=== PATIENT | male | born 1960 | race Caucasian/White ===

== ENCOUNTER → 2018-10-22 | Outpatient (CLI) | payer OTHER ==
--- NOTE | 2018-10-22 23:36 | CONS ---
CONSULTATION REASON FOR CONSULTATION: Consultation note for sleep apnea. 58-year-old male patient diagnosed having obstructive sleep apnea many years back coming in for a routine check. The patient has had a severe VERONICA with an AHI of 35 and currently has a CPAP at a pressure of 9 cm of water. He is using a ResMed F9 series and he is using Young FX nose mask. He goes to be around 10 p.m., wakes up at 6 a.m. in the morning. He wakes up refreshed and alert during the day. He is averaging more than 6 hours of CPAP use per night. No leaks around the mask. He is quite comfortable. No nighttime shortness of breath, chest pain or no heartburn. No grinding of the teeth. His snoring is completely subsided while on CPAP therapy. No new medical problems or comorbidities. He has hypertension and diabetes which has been essentially stable for now. His weight has also been stable. PAST MEDICAL HISTORY: Diabetes mellitus, hypertension, obstructive sleep apnea. Fatty liver. PAST SURGICAL HISTORY: Is negative. DRUG ALLERGIES: Not known. MEDICATIONS ARE: Listed. SOCIAL HISTORY: Nonsmoker. No history of alcohol. No history of IV drugs. FAMILY HISTORY: Positive for cardiac disease. Negative for sleep apnea. REVIEW OF SYSTEMS: Fourteen-point review of system was done. Positive findings are mentioned above in history of present illness. PHYSICAL EXAMINATION: His BP is 117/73, pulse is 70, respirations 16. Weight is 216. Pulse ox 97 percent on room air. GENERAL APPEARANCE: Calm, comfortable. No acute distress. Head is atraumatic, normocephalic. NECK: Supple. Mallampati class IV. There is no goiter or neck mass. LUNGS: Clear to auscultation. HEART: Sounds regular rate and rhythm. Normal S1, S2. No S3, S4. No murmurs. ABDOMEN: Soft, nontender. No organomegaly. EXTREMITIES: No edema. No cyanosis or clubbing. NEUROLOGIC: Alert and oriented x3. No focal neurological deficits. PSYCHIATRIC: Negative for anxiety or depression. IMPRESSION: 1. obstructive sleep apnea AHI of 35 while treated with a CPAP pressure of 9. 2. Hypersomnia, improved. 3. Hypertension. 4. Diabetes. 5. Fatty liver. PLAN: 1. Utilize CPAP at a pressure of 9. 2. Use a Young FX mask and alternative I offered the AirFit medium-size nose mask. 3. Encourage further weight loss. 4. Treatment is successful, we will see him back in a year's time, earlier if needed. No need for any further changes. His machine is functional and there is no need for any further adjustments at this point in time. MMANAL / IJN: [id number] /
== END | disposition home or self-care (01) ==
LOC: SLEEP 13:53
PROVIDERS: ATTEND Internal Medicine Critical Care Medicine
DX: G47.33 Obstructive sleep apnea (adult) (pediatric) (principal); I10 Essential (primary) hypertension; E11.9 Type 2 diabetes mellitus without complications; K76.0 Fatty (change of) liver, not elsewhere classified; Z99.89 Dependence on other enabling machines and devices
CPT/HCPCS: 99211

== ENCOUNTER → 2020-07-23 | Outpatient (CLI) | payer OTHER | END | disposition home or self-care (01) | LOC: RADMRIMAIN 11:01 | PROVIDERS: ATTEND Orthopaedic Surgery | DX: Z53.9 Procedure and treatment not carried out, unspecified reason (principal) ==

== ENCOUNTER → 2020-11-23 | Outpatient (CLI) | payer OTHER ==
[2020-11-23 10:45] LABS: Potassium 4.4 mmol/L (3.5-5.1)
[2020-11-23 11:10] LABS: Basophils % (A) 1 %; Eosinophils # (A) 0.1 k/uL (0-0.7); Eosinophils % (A) 2 %; HCT 49.3 % (39.0-53.0); HGB 17.2 gm/dL (13.0-17.5); Lymphocytes # (A) 1.2 k/uL (1.0-4.8); Lymphocytes % (A) 23 %; MCH 33.1 pg (25.0-35.0); MCV 94.8 fL (80.0-100.0); Mean Platelet Volume 11.2; Monocytes # (A) 0.3 k/uL (0-1.0); Monocytes % (A) 6 %; Neutrophils # (A) 3.3 k/uL (1.3-7.7); Neutrophils % (A) 65 %; Platelet Count 105 k/uL (150-450); RDW 12.9 % (11.5-15.5); WBC 5.1 k/uL (3.8-10.6)
== END | disposition home or self-care (01) ==
LOC: LABPAT 09:00
PROVIDERS: ATTEND Orthopaedic Surgery
DX: Z01.818 Encounter for other preprocedural examination (principal); M75.41 Impingement syndrome of right shoulder; R00.1 Bradycardia, unspecified
CPT/HCPCS: 36415; 80051; 85025; 93005

== ENCOUNTER 2020-11-24 06:17 | Day surgery (SDC) | payer OTHER ==
[2020-11-23 08:53] VITALS: BMI 26.4
--- NOTE | 2020-11-23 14:22 | HP ---
HISTORY AND PHYSICAL DATE OF SURGERY: 11/24/2020 Manuel Cabrera is a 60-year-old patient seen with progressive right shoulder pain. We discussed options for treatment. He elected to proceed right shoulder arthroscopy. Consent was obtained. PAST MEDICAL HISTORY: Qhb-rmpugmy-ufapgvyrc diabetes. PAST SURGICAL HISTORY: Noncontributory. DAILY MEDICATIONS: Actos, loperamide, metformin. ALLERGIES: NONE. SOCIAL HISTORY: He denies tobacco use. PHYSICAL EVALUATION OF THE RIGHT SHOULDER: Flexion is 130 degrees, abduction 120 degrees. External rotation is 30 degrees with significant weakness. There is tenderness along the anterolateral acromion and rotator cuff insertion site. Impingement sign is positive at 90. Cross-body adduction sign is positive. Drop-arm sign is positive. Distal neurovascular exam is intact. IMAGING: Radiographs of the right shoulder revealed a type 2 acromion, evidence for acromioclavicular joint osteoarthritis and cystic changes of the greater tuberosity. Right shoulder MRI revealed impingement, acromioclavicular joint osteoarthritis and labral tear. IMPRESSION: 1. Right shoulder impingement with labral tear and possible rotator cuff tear. 2. Right shoulder acromioclavicular joint osteoarthritis. 3. Hgg-krydmgr-ldyvwcyyl diabetes. PLAN: Right shoulder arthroscopy with subacromial decompression, Kris procedure, possible arthroscopic rotator cuff repair and debridement. MMODL / IJN: [id number] /
[2020-11-24] MEDS ORDERED: MIDAZOLAM 2 MG/2 ML VIAL IV PRN (06:39)
[2020-11-24] MEDS ORDERED: ONDANSETRON 4 MG/2 ML VIAL IVP ONE (06:39)
[2020-11-24] MEDS ORDERED: LACTATED RINGERS 1,000 ML IV SCH (06:39)
[2020-11-24] MEDS ORDERED: DEXAMETHASONE SOD PHOSPHATE 4 MG/ML 1 ML VIAL IV ONE (06:39)
[2020-11-24] MEDS ORDERED: LIDOCAINE 1% (10MG/ML) FOR IV START INTRADERMA ONE (07:00)
[2020-11-24] MEDS ORDERED: HYDROmorphone 0.5 MG/0.5 ML SYRINGE IVP PRN (07:00)
[2020-11-24 07:34] LABS: Glucose,Whole Blood 267 mg/dL (75-99)
[2020-11-24] MEDS ORDERED: MIDAZOLAM 2 MG/2 ML VIAL IV ONE (07:36)
[2020-11-24] MEDS ORDERED: fentaNYL (PF) 50 MCG/ML 2 ML AMP IV ONE (07:36)
[2020-11-24] MEDS ORDERED: ROPIVACAINE 5 MG/ML 30 ML VIAL ONE (07:52)
[2020-11-24] MEDS ORDERED: ePHEDrine SULFATE/0.9% NACL/PF 50 MG/5 ML SYRINGE IV ONE (07:52)
[2020-11-24] MEDS ORDERED: MIDAZOLAM 2 MG/2 ML VIAL ONE (07:52)
[2020-11-24] MEDS ORDERED: fentaNYL (PF) 50 MCG/ML 2 ML AMP ONE (07:52)
[2020-11-24] MEDS ORDERED: SUCCINYLCHOLINE CHLORIDE VIAL 200 MG/10 ML VIAL IV ONE (07:52)
[2020-11-24] MEDS ORDERED: LIDOCAINE 1% INJ 10MG/ML (20 ML MDV) ONE (07:52)
[2020-11-24] MEDS ORDERED: PROPOFOL 10 MG/ML 20 ML VIAL IV ONE (07:52)
[2020-11-24] MEDS ORDERED: LACTATED RINGERS 1,000 ML IV ONE (09:47)
[2020-11-24 10:06] VITALS: TEMP 97.4
[2020-11-24 10:07] LABS: Glucose,Whole Blood 296 mg/dL (75-99)
--- NOTE | 2020-11-24 10:07 | P.OP ---
Date of Procedure: 11/24/20 Preoperative Diagnosis: Right shoulder impingement Postoperative Diagnosis: 1. Right shoulder rotator cuff tear 2. Right shoulder impingement 3. Right shoulder acromioclavicular joint osteoarthritis Procedure(s) Performed: 1. Right shoulder arthroscopic rotator cuff repair 2. Right shoulder arthroscopic subacromial decompression 3. Right shoulder arthroscopic Kris procedure Implants: 14.75 Arthrex swivel lock anchor Anesthesia: GETA, regional (Interscalene block) Surgeon: Uday Trent Sap Basis Consultant #1: Rodo Douglass Estimated Blood Loss (ml): 11 Pathology: none sent Condition: stable Disposition: PACU Indications for Procedure: 60-year-old patient seen with progressive right shoulder pain. After treatment options were discussed, he elected to proceed with arthroscopy Operative Findings: see description of procedure Description of Procedure: Patient underwent an interscalene block by department of anesthesia. The patient was then taken to the operative suite. The patient underwent a general anesthetic by the department of anesthesia. The patient was placed into a lateral position and secured. There was appropriate padding of the bony prominence. Right shoulder was then prepped and draped in normal sterile orthopedic fashion. We placed the extremity in 10 pounds of longitudinal traction. A posterior incision was now made for a posterior working portal site. The trocar and cannula were inserted into the glenohumeral joint. Arthroscopy was initiated. Spinal needle was now inserted anteriorly, to ascertain the anterior working portal site. An incision was now made in that area, a trocar was inserted followed by a probe. There was some superficial fraying of the anterior labrum. Glenohumeral joint appeared unremarkable. The biceps tendon was stable. I debrided out the superficial fraying of the anterior labrum. The labrum was again probed and found to be stable. Instruments now removed from glenohumeral joint. Utilizing the posterior working portal site, the trocar and cannula were inserted into the subacromial space. Arthroscopy initiated. I made an incision 2 fingerbreadths lateral to the acromion. I introduced my trocar followed by my ArthroCare ablator. I now began ablating thick subacromial bursal tissue, which exposed the undersurface of the anterior acromion. There was diminished subacromial space. There was a very prominent anterior acromion. A motorized bur was introduced and a subacromial decompression was performed. I also excised some osteophytes off the inferior aspect of the distal clavicle. The AC joint was visualized and noted to be fairly arthritic. The motorized bur was introduced in the anterior portal site and a Kris procedure was performed without difficulty, decompressing the AC joint nicely. I turned my attention to the rotator cuff. There was an area of full-thickness perforation distal supraspinatus. I debrided the margins getting down to stable tendon tissue. The defect/tear was approximately 1.5 cm and freely mobile over the footprint. I abraded the footprint with a motorized bur. I passed 3 everted mattress sutures through good bites of rotator cuff tendon. I punched a hole in the footprint for insertion of an anchor. All 6 limbs of suture were passed through the eyelet of a 4.75 Arthrex swivel lock anchor. I placed the eyelet into the pre-punched hole. I held it in position while Rodo TRACY tensioned all sutures and deployed the anchor with good fixation noted. All residual suture limbs were now clipped. We had good compression of the tendon along the entire footprint. Instruments now removed from the portal sites. All portal sites were approximated with nylon suture. Sterile dressings were applied followed by a shoulder sling. Rodo TRACY assisted in this case. The patient was awakened, transferred to a bed, and taken to recovery in stable condition.
[2020-11-24] MEDS ORDERED: INSULIN ASPART (NovoLOG) 100 UNIT/ML VIAL SQ ONE (10:23)
[2020-11-24 10:45] VITALS: RESP 16
[2020-11-24] MEDS ORDERED: hydrALAZINE HCL 20 MG/ML 1 ML VIAL IVP ONE (11:20)
--- NOTE | 2020-11-24 12:27 | P.ANPRN ---
Procedure Note - Anesthesia - Nerve Block Performed Right Interscalene Time Out Performed: Yes (07:35) Date of Procedure: 11/24/20 Procedure Start Time: :35 Procedure Stop Time: 07:49 Location of Patient: PreOp Indication: Acute Post-Operative Pain, Requested by Surgeon (Dr Trent) Sedation Type: Sedate with meaningful contact maintained Preparation: Sterile Prep Position: Supine Catheter: None Needle Types: Pajunk Needle Gauge: Other (see comment) (22g) Ultrasound used to visualize needle placement: Yes Ultrasound used to observe medication spread: Yes Injectate: 0.5% Ropivacaine (see comment for volume) (20cc) Blood Aspirated: No Pain Paresthesia on Injection Noted: No Resistance on Injection: Normal Image Stored and Saved: Yes Events: Uneventful and Well Tolerated
[2020-11-24 12:50] VITALS: BP 164/95; PULSE 78
== END 2020-11-24 13:00 | disposition home or self-care (01) ==
LOC: OR 06:17
PROVIDERS: ATTEND Orthopaedic Surgery
DX: M25.811 Other specified joint disorders, right shoulder (principal); M19.011 Primary osteoarthritis, right shoulder; E11.9 Type 2 diabetes mellitus without complications; M75.101 Unspecified rotator cuff tear or rupture of right shoulder, not specified as traumatic; Z79.84 Long term (current) use of oral hypoglycemic drugs
CPT/HCPCS: 29824; 29826; 29827; 64415; 76942; C1713; J2250; J0330; J0360; J1100; J0690; J2405; J2001; J3010; J2795; J2704

== ENCOUNTER 2023-07-30 16:03 | Inpatient (IN) | payer OTHER ==
--- NOTE | 2023-07-30 16:32 | ED ---
Chest Pain HPI - General Source: patient, family, RN notes reviewed Mode of arrival: wheelchair Limitations: no limitations <Rosa Mulligan - Last Filed: 07/30/23 16:28> - General Source: patient, RN notes reviewed, old records reviewed <Jose Armando Loaiza - Last Filed: 07/30/23 22:07> - General Chief Complaint: Chest Pain Stated Complaint: Chest pain Time Seen by Provider: 07/30/23 16:28 - History of Present Illness Initial Comments: Quick note: 63 year old male presenting to the ER with a chief complaint of chest pain. Patient reports for the past 2 days he has been endorsing a centralized chest discomfort. He admits to shortness of breath, nausea and diaphoresis. Patient states he also was having a headache. No known cardiac history. Patient is a known diabetic. (Rosa Mulligan) Patient is a 63-year-old male who presents emergency department complaining of chest pain. Has been ongoing for the last 1 to 2 days. States it originally started as indigestion type symptoms which is typical for the patient. Normally he gets some lower close to his stomach but he was having them in the middle of his chest. States he took antacids with minimal relief. Today while out on the boat a few hours ago he began experiencing more of a pressure type of chest pain over the center of his chest. This is common gone over the last day or so. There is more severe. Also had an episode when he climbs steps. [place] nauseous at that time as well as broke out in a sweat. No radiation of the pain. States currently he just has very minimal indigestion symptoms if any. No rosales chest pain like he had earlier. No significant cardiac history for the patient but does have family members, both mother and grandmother father who required stenting in their 60s and 70s. Patient has a history of diabetes. Never smoker. Presents for further evaluation at this time. No lower extremity edema. No fevers, chills, cough. (Jose Armando Loaiza) - Related Data Home Medications Medication Instructions Recorded Confirmed Diclofenac Sodium [Voltaren] 50 mg PO TID PRN 11/23/20 07/30/23 methocarbamoL [Methocarbamol] 500 mg PO DIRECTED PRN 11/23/20 07/30/23 traMADol HCL [Ultram] 50 mg PO TID PRN 11/23/20 07/30/23 Allerplex 1 dose PO Q4H PRN 07/30/23 07/30/23 Antronex 1 dose PO Q4H PRN 07/30/23 07/30/23 Cetirizine HCl [Zyrtec] 10 mg PO DAILY 07/30/23 07/30/23 Cetirizine HCl [Zyrtec] 10 mg PO HS PRN 07/30/23 07/30/23 Dulaglutide [Trulicity] 0.75 mg SQ TU 07/30/23 07/30/23 Empagliflozin [Jardiance] 25 mg PO DAILY 07/30/23 07/30/23 Fenofibrate Nanocrystallized 145 mg PO DAILY 07/30/23 07/30/23 [Fenofibrate] lisinopriL [Zestril] 10 mg PO DAILY 07/30/23 07/30/23 Allergies Allergy/AdvReac Type Severity Reaction Status Date / Time Sulfa (Sulfonamide Allergy Rash/Hives Verified 07/30/23 17:39 Antibiotics) Review of Systems ROS Other: All systems not noted in ROS Statement are negative. <Rosa Mulligan - Last Filed: 07/30/23 16:28> ROS Other: All systems not noted in ROS Statement are negative. <Jose Armando Loaiza - Last Filed: 07/30/23 22:07> ROS Statement: Those systems with pertinent positive or pertinent negative responses have been documented in the HPI. Review of Systems: CONST: Denies fever EYES: Denies blurry vision ENT: Denies nasal congestion C/V: Denies current chest pain RESP: Denies shortness of breath GI: Denies abdominal pain : Denies dysuria SKIN: Denies rash. MSK: Denies joint pain. NEURO: Denies headache (Jose Armando Loaiza) EKG Findings - EKG Comments: EKG Findings:: 12-lead Electrocardiogram Interpretation Note. EKG was reviewed and interpreted by myself. 12-lead ECG performed at 1616 is interpreted by me as revealing normal sinus rhythm at a rate of 66 beats per minute. [place] is normal. [place] interval is 238 ms, QRS duration is 110 ms, QTc is 432 ms.. New T wave inversions in the inferior leads, II, III, aVF. R wave progression across the precordium was satisfactory. Concerning of some ischemic changes in the inferior leads which appears new when compared with EKG from November 2020. 12- lead Electrocardiogram Interpretation Note. EKG was reviewed and interpreted by myself. 12-lead ECG performed at 1733 is interpreted by me as revealing normal sinus rhythm at a rate of 64 beats per minute. [place] is normal. [place] interval is 231 ms, QRS duration is 109 ms, QTc is 432 ms. Continued T wave inversion in the inferior leads II, III, aVF... R wave progression across the precordium was satisfactory. Patient continues to show T wave inversions in the inferior leads concerning for ischemic changes. No dynamic changes when compared with prior EKGs.. - EKG Results: EKG: interpreted by ERMD <Jose Armando Loaiza - Last Filed: 07/30/23 22:07> Past Medical History Past Medical History: Diabetes Mellitus Additional Past Medical History / Comment(s): CURRENTLY DIET CONTROL DIABETES. STATES STOPPED ALL DIABETIC MEDS ABOUT 2 MONTHS AGO BECUASE NOTHING WAS WORKING. STATES THAT CBG STAYS ABOUT 240. History of Any Multi-Drug Resistant Organisms: None Reported Past Surgical History: Orthopedic Surgery Additional Past Surgical History / Comment(s): LT ELBOW DENERVATION. BACK INJECTIONS. COLONOSOCPY Past Anesthesia/Blood Transfusion Reactions: Postoperative Nausea & Vomiting (PONV) Past Psychological History: No Psychological Hx Reported Smoking Status: Never smoker Past Alcohol Use History: None Reported Past Drug Use History: None Reported - Past Family History Father Family Medical History: Cancer Additional Family Medical History / Comment(s): PROSTATE <Rosa Mulligan - Last Filed: 07/30/23 16:28> General Exam <Rosa Mulligan - Last Filed: 07/30/23 16:28> <Jose Armando Loaiza - Last Filed: 07/30/23 22:07> - General Exam Comments Initial Comments: Visual Physical Exam Vital signs reviewed General: Well-appearing, nontoxic, no acute distress. Head: Normocephalic, atraumatic Eyes: PERRLA, EOMI ENT: Airway patent Chest: Nonlabored breathing Skin: No visual rash, normal skin tone Neuro: Alert and oriented 3 Musculoskeletal: No gross abnormalities (Rosa Mulligan) General: Appears in no acute distress. HEAD: Normal with no signs of head trauma. EYES: PERRLA, EOMI, conjunctiva normal, no discharge. ENT: Hearing grossly intact, normal oropharynx. RESPIRATORY: Clear breath sounds bilaterally. No wheezes, rales, or rhonchi. C/V: Regular rate and rhythm. S1 and S2 auscultated, no edema, peripheral pulses 2+ and intact throughout ABD: Abd is soft, nontender, nondistended EXT: Normal range of motion, no obvious deformity SKIN: No rashes or lesions observed on exposed skin. NEURO: Alert and oriented x 4. (Jose Armando Loaiza) Course Vital Signs 07/30/23 07/30/23 07/30/23 16:10 18:16 18:37 Temperature 98.3 F 98.7 F Pulse Rate 68 64 68 Respiratory 18 18 16 Rate Blood Pressure 155/96 154/97 138/82 O2 Sat by Pulse 99 99 98 Oximetry Chest Pain MDM <Rosa Mulligan - Last Filed: 07/30/23 16:28> <Jose Armando Loaiza - Last Filed: 07/30/23 22:07> - MDM I performed the quick note portion of this chart. Electronically signed by Rosa Mulligan PA-C (Rosa Mulligan) Was pt. sent in by a medical professional or institution (ROSSANA Cavazos, [employer], urgent care, hospital, or detention...) When possible be specific @ -No Did you speak to anyone other than the patient for history (EMS, parent, family, police, friend...)? What history was obtained from this source @ -No Did you review nursing and triage notes (agree or disagree)? Why? @ -I reviewed and agree with nursing and triage notes Were old charts reviewed (outside hosp., previous admission, EMS record, old EKG, old radiological studies, urgent care reports/EKG's, detention records)? Report findings @ -Prior EKG reviewed from November 2020 which did not show the T wave inversion in the inferior leads at that time. Differential Diagnosis (chest pain, altered mental status, abdominal pain women, abdominal pain men, vaginal bleeding, weakness, fever, dyspnea, syncope, headache, dizziness, GI bleed, back pain, seizure, CVA, palpatations, mental health, musculoskeletal)? @ -Differential Chest Pain: Stable Angina, Unstable Angina, STEMI, NSTEMI Aortic Dissection, Pneumothorax, Musculoskeletal, Esophageal Spasm GERD, Cholecystitis, Pancreatitis, Zoster, this is not meant to be an all-inclusive list. EKG interpreted by me (3pts min.). @ -As above X-rays interpreted by me (1pt min.). @ -Chest x-ray reveals no obvious acute cardiopulmonary process. CT interpreted by me (1pt min.). @ -None done U/S interpreted by me (1pt. min.). @ -None done What testing was considered but not performed or refused? (CT, X-rays, U/S, la bs)? Why? @ -None What meds were considered but not given or refused? Why? @ -None Did you discuss the management of the patient with other professionals (professionals i.e. , PA, SH[employer]ER/FIREMAN, lab, RT, psych nurse, social and political studies professor, intellectual property lawyer, teacher, credit administration officer, dependency case manager)? Give summary @ -Discussed with HARSHA Mckeon of [facility] who accepted the admission. Was smoking cessation discussed for >3mins.? @ -No Was critical care preformed (if so, how long)? @ -Yes, 35 minutes. Were there social determinants of health that impacted care today? How? (Homelessness, low income, unemployed, alcoholism, drug addiction, transportation, low edu. Level, literacy, decrease access to med. care, penitentiary, rehab)? @ -No Was there de-escalation of care discussed even if they declined (Discuss DNR or withdrawal of care, Hospice)? DNR status @ -No What co-morbidities impacted this encounter? (DM, HTN, Smoking, COPD, CAD, Cancer, CVA, ARF, Chemo, Hep., AIDS, mental health diagnosis, sleep apnea, morbid obesity)? @ -None Was patient admitted / discharged? Hospital course, mention meds given and route, prescriptions, significant lab abnormalities, going to OR and other pertinent info. @ -Patient presents emergency department complaining of typical sounding chest pain. We will obtain cardiac workup. Patient in agreement this plan. Originally seen as a quick note. I evaluate the patient when he was placed in room. Vital signs currently within acceptable limits and he has minimal indigestion-like symptoms at this time but no chest pain like he had earlier today. Patient will be given a dose of GI Cocktail as well as 324 mg of aspirin and 1 L fluid bolus. Patient was in agreement this plan. EKG shows no signs of acute ischemia. Chest x-ray reveals no obvious acute cardiopulmonary process. Laboratory studies are remarkable for an elevated troponin of 0.218. On reevaluation, patient remains asymptomatic. I updated him that appears he has a non-STEMI. Repeat EKG was obtained and revealed no dynamic changes. I would like to admit the patient to the hospital at this time on heparin. He already received aspirin. He was in agreement this plan. Cardiology consulted. Echo ordered. I spoke with the admitting physician, Linda of [facility] who accepted the admission. Just before the patient was taken up to 3 S., he states that he had some mild increase in chest pain. Went from a 0 to approximately a 2 or little higher. He was given a nitro which did improve the pain and placed on the Nitropaste. He was in agreement this plan. Resting comfortably at this time. Undiagnosed new problem with uncertain prognosis? @ -No Drug Therapy requiring intensive monitoring for toxicity (Heparin, Nitro, Insulin, Cardizem)? @ -Heparin Were any procedures done? @ -No Diagnosis/symptom? @ -NSTEMI Acute, or Chronic, or Acute on Chronic? @ -Acute Uncomplicated (without systemic symptoms) or Complicated (systemic symptoms)? @ -Complicated Side effects of treatment? @ -None Exacerbation, Progression, or Severe Exacerbation] @ -No Poses a threat to life or bodily function? @ -Yes (Jose Armando Loaiza) Critical Care Time Critical Care Time: Yes Total Critical Care Time: 35 <Jose Armando Loaiza - Last Filed: 07/30/23 22:07> Disposition <Rosa Mulligan - Last Filed: 07/30/23 16:28> Time of Disposition: 17:42 <Jose Armando Loaiza - Last Filed: 07/30/23 22:07> Clinical Impression: NSTEMI (non-ST elevated myocardial infarction) Disposition: ADMITTED IP TO THIS HOSP Condition: Serious
[2023-07-30 16:51] LABS: Basophils % (A) 1 %; Eosinophils # (A) 0.1 k/uL (0-0.7); Eosinophils % (A) 2 %; HCT 50.9 % (39.0-53.0); Lymphocytes # (A) 0.9 k/uL (1.0-4.8); Lymphocytes % (A) 16 %; MCH 32.3 pg (25.0-35.0); MCHC 33.4 g/dL (31.0-37.0); MCV 96.7 fL (80.0-100.0); Mean Platelet Volume 10.6; Monocytes # (A) 0.3 k/uL (0-1.0); Monocytes % (A) 6 %; Neutrophils % (A) 75 %; Platelet Count 117 k/uL (150-450); RBC 5.26 m/uL (4.30-5.90); RDW 12.5 % (11.5-15.5); WBC 5.4 k/uL (3.8-10.6)
[2023-07-30] MEDS: ASPIRIN 81 MG PO STA ×2 (16:52→23:43)
[2023-07-30] MEDS: SODIUM CHLORIDE 0.9% 1,000 ML IV ONE (16:56)
[2023-07-30] MEDS: MAG HYDROX/AL HYDROX/SIMETH 30 ML, HYOSCYAMINE ELIXIR 10 ML, LIDOCAINE VISCOUS 2% 10 ML PO STA (16:57)
[2023-07-30 16:59] LABS: Partial Thromboplastin Time 23.6 sec (22.0-30.0); Prothrombin Time 11.1 sec (10.0-12.5)
[2023-07-30 17:01] LABS: ALT 59 U/L (4-49); AST 58 U/L (17-59); African American GFR (CKD) >90 (>60 ml/min/1.73 sqM); Albumin 4.9 g/dL (3.5-5.0); Alkaline Phosphatase 52 U/L (38-126); Anion Gap 8 mmol/L; Blood Urea Nitrogen 23 mg/dL (9-20); Calcium 9.7 mg/dL (8.4-10.2); Carbon Dioxide 24 mmol/L (22-30); Chloride 103 mmol/L (98-107); Glucose 190 mg/dL (74-99); Non-African American GFR(CKD) 80 (>60 ml/min/1.73 sqM); Potassium 4.5 mmol/L (3.5-5.1); Sodium 135 mmol/L (137-145); Total Bilirubin 0.8 mg/dL (0.2-1.3); Total Protein 7.2 g/dL (6.3-8.2)
--- NOTE | 2023-07-30 17:09 | XR ---
EXAMINATION TYPE: XR chest 2V DATE OF EXAM: 07/30/2023 COMPARISON: NONE HISTORY: Chest pain TECHNIQUE: Frontal and lateral views of the chest are obtained. FINDINGS: There is no focal air space opacity, pleural effusion, or pneumothorax seen. The cardiac silhouette size is within normal limits. The osseous structures are intact. IMPRESSION: No acute cardiopulmonary process.
[2023-07-30] MEDS ORDERED: HEPARIN SODIUM 1,000 UN/ML (10ML VL) IV PRN (17:42)
[2023-07-30] MEDS ORDERED: ONDANSETRON 4 MG/2 ML VIAL IVP PRN (17:43)
[2023-07-30] MEDS ORDERED: NALOXONE 0.4 MG/ML 1 ML VIAL IV PRN (17:43)
[2023-07-30] MEDS: PANTOPRAZOLE 40 MG/10 ML VIAL IVP STA (18:07)
[2023-07-30] MEDS: HEPARIN SODIUM 1,000 UN/ML (10ML VL) IV ONE (18:09)
[2023-07-30] MEDS: HEPARIN SOD,PORK IN 0.45% NACL 25,000 UNIT in 0.45% NACL 1 250ML.BAG IV SCH (18:11)
[2023-07-30] MEDS: SODIUM CHLORIDE 0.9% 1,000 ML IV SCH (18:15)
[2023-07-30] MEDS: NITROGLYCERIN SL TABS 0.4 MG TAB SUBLINGUAL STA (18:15)
[2023-07-30] MEDS: ACETAMINOPHEN TAB 325 MG TAB PO PRN (18:16)
[2023-07-30] MEDS: NITROGLYCERIN OINT 1 INCH/GM PACKET TOPICAL STA (18:36)
[2023-07-30 19:55] LABS: Glucose,Whole Blood 140 mg/dL (70-110)
[2023-07-30] MEDS: NITROGLYCERIN OINT 1 INCH/GM PACKET TOPICAL SCH (23:46)
[2023-07-31] MEDS ORDERED: traMADol 50 MG TAB PO PRN (04:36)
[2023-07-31 05:44] LABS: Glucose,Whole Blood 214 mg/dL (70-110)
[2023-07-31 07:06] LABS: Basophils % (A) 1 %; Eosinophils # (A) 0.1 k/uL (0-0.7); Eosinophils % (A) 3 %; HCT 47.1 % (39.0-53.0); Lymphocytes % (A) 24 %; MCHC 33.9 g/dL (31.0-37.0); MCV 97.2 fL (80.0-100.0); Mean Platelet Volume 11.1; Monocytes # (A) 0.4 k/uL (0-1.0); Monocytes % (A) 8 %; Neutrophils # (A) 2.7 k/uL (1.3-7.7); Neutrophils % (A) 62 %; Platelet Count 118 k/uL (150-450); RBC 4.84 m/uL (4.30-5.90); RDW 12.6 % (11.5-15.5); WBC 4.4 k/uL (3.8-10.6)
[2023-07-31 07:18] LABS: INR 1.1 (<1.2); Partial Thromboplastin Time 54.9 sec (22.0-30.0); Prothrombin Time 11.7 sec (10.0-12.5)
[2023-07-31] MEDS: lisinopriL 10 MG TAB PO SCH (07:48)
[2023-07-31] MEDS: PANTOPRAZOLE 40 MG/10 ML VIAL IV SCH (07:49)
[2023-07-31 08:49] LABS: African American GFR (CKD) >90 (>60 ml/min/1.73 sqM); Anion Gap 10 mmol/L; Blood Urea Nitrogen 24 mg/dL (9-20); Calcium 9.3 mg/dL (8.4-10.2); Carbon Dioxide 15 mmol/L (22-30); Chloride 114 mmol/L (98-107); Glucose 199 mg/dL (74-99); Non-African American GFR(CKD) 85 (>60 ml/min/1.73 sqM); Potassium 4.7 mmol/L (3.5-5.1); Sodium 139 mmol/L (137-145)
[2023-07-31] MEDS ORDERED: ALPRAZolam 0.25 MG TAB PO PRN (08:51)
[2023-07-31] MEDS ORDERED: ALPRAZolam 0.5 MG TAB PO PRN (08:51)
[2023-07-31] MEDS ORDERED: NITROGLYCERIN SL TABS 0.4 MG TAB SUBLINGUAL PRN ×2 (08:51→15:43)
[2023-07-31] MEDS: ASPIRIN 81 MG PO SCH (09:28)
[2023-07-31] MEDS: ASPIRIN 325 MG TAB PO STA (09:29)
[2023-07-31] MEDS: ATORVASTATIN 80 MG TAB PO STA (09:29)
[2023-07-31] MEDS: SODIUM CHLORIDE 0.9% 1,000 ML in EMPTY BAG 1 BAG IV SCH ×2 (10:03→16:11)
--- NOTE | 2023-07-31 11:32 | P.CRDCN ---
History of Present Illness History of present illness: HISTORY OF PRESENT ILLNESS: This is a 63-year-old male with a past medical history significant for hypertension, hyperlipidemia, and diabetes. Patient does not follow with a information receptionist. We have been asked to see the patient in consultation for non- STEMI. Patient examined at the bedside. Patient states he has been having chest discomfort for the past 3 days. He states that initially felt like indigestion but then became more of a pain type sensation. He also reports having a hea dache. He states yesterday he was sitting on a boat when he developed another episode of chest pain. He states yesterday he walked up a flight of stairs and needed to rest which is unusual for him as he usually swims 16 laps without problems. He is a non-smoker. He denies a known history of CAD. Patient was found to have elevated troponins and was started on IV heparin. At the time of examination this morning, patient denies chest pain or pressure. Vital signs are stable. DIAGNOSTICS: - EKG reveals sinus mechanism with T wave inversions inferiorly. - Chest xray negative for acute process. - Laboratory data: Troponin 0.218. 0.485. 0.833. - Current home cardiac medications include lisinopril 10 mg daily and fenofibrate 145 mg daily. REVIEW OF SYSTEMS: At the time of my exam: CONSTITUTIONAL: Denies fever or chills. HEENT: Denies blurred vision, vision changes, or eye pain. Denies hemoptysis CARDIOVASCULAR: Denies chest pain. Denies orthopnea. Denies PND. Denies palpitations RESPIRATORY: Denies shortness of breath. GASTROINTESTINAL: Denies abdominal pain. Denies nausea or vomiting. HEMATOLOGIC: Denies bleeding disorders. GENITOURINARY: Denies any blood in urine. SKIN: Denies pruitis. Denies rash. PHYSICAL EXAM: VITAL SIGNS: Reviewed. GENERAL: Well-developed in no acute distress. HEENT: Head is normocephalic. Pupils are equal, round. Sclerae anicteric. Mucous membranes of the mouth are moist. Neck supple. No JVD or thyromegaly LUNGS: Respirations even and unlabored. Lungs essentially clear to auscultation bilaterally. HEART: Regular rate and rhythm. S1 and S2 heard. ABDOMEN: Soft. Nondistended. Nontender. EXTREMITIES: Normal range of motion. No clubbing or cyanosis. Peripheral pulses intact. No lower extremity edema NEUROLOGIC: Awake and alert. Oriented x 3. ASSESSMENT: Non-STEMI Hypertension Hyperlipidemia Diabetes PLAN: Obtain 2D echo to assess cardiac structure and function Resume home cardiac medications Continue IV heparin Add aspirin 81 mg daily Add atorvastatin 80 mg at night. Check lipid panel Check hemoglobin A1c Patient to undergo cardiac catheterization today with Dr. Benoit Further recommendations pending patient course Nurse practitioner note has been reviewed by physician. Signing provider agrees with the documented findings, assessment, and plan of care documented by PUPIL PERSONNEL SERVICES DIRECTOR as a scribe. Past Medical History Past Medical History: Diabetes Mellitus, Sleep Apnea/CPAP/BIPAP Additional Past Medical History / Comment(s): CURRENTLY DIET CONTROL DIABETES. STATES STOPPED ALL DIABETIC MEDS ABOUT 2 MONTHS AGO BECUASE NOTHING WAS WORKING. STATES THAT [facility] STAYS ABOUT 240. fatty liver History of Any Multi-Drug Resistant Organisms: None Reported Past Surgical History: Orthopedic Surgery Additional Past Surgical History / Comment(s): LT ELBOW DENERVATION. BACK INJECTIONS. COLONOSOCPY, right and left shoulder rotator cuff repairs Past Anesthesia/Blood Transfusion Reactions: Postoperative Nausea & Vomiting (PONV) Past Psychological History: No Psychological Hx Reported Smoking Status: Never smoker Past Alcohol Use History: None Reported Past Drug Use History: None Reported - Past Family History Father Family Medical History: Cancer Additional Family Medical History / Comment(s): PROSTATE Medications and Allergies Home Medications Medication Instructions Recorded Confirmed Type Diclofenac Sodium [Voltaren] 50 mg PO TID PRN 11/23/20 07/30/23 History methocarbamoL [Methocarbamol] 500 mg PO DIRECTED PRN 11/23/20 07/30/23 History traMADol HCL [Ultram] 50 mg PO TID PRN 11/23/20 07/30/23 History Allerplex 1 dose PO Q4H PRN 07/30/23 07/30/23 History Antronex 1 dose PO Q4H PRN 07/30/23 07/30/23 History Cetirizine HCl [Zyrtec] 10 mg PO DAILY 07/30/23 07/30/23 History Cetirizine HCl [Zyrtec] 10 mg PO HS PRN 07/30/23 07/30/23 History Dulaglutide [Trulicity] 0.75 mg SQ TU 07/30/23 07/30/23 History Empagliflozin [Jardiance] 25 mg PO DAILY 07/30/23 07/30/23 History Fenofibrate Nanocrystallized 145 mg PO DAILY 07/30/23 07/30/23 History [Fenofibrate] lisinopriL [Zestril] 10 mg PO DAILY 07/30/23 07/30/23 History Allergies Allergy/AdvReac Type Severity Reaction Status Date / Time Sulfa (Sulfonamide Allergy Rash/Hives Verified 07/30/23 17:39 Antibiotics) Physical Exam Vitals: Vital Signs Temp Pulse Pulse Resp BP BP Pulse Ox 07/31/23 04:00 60 18 113/72 97 07/31/23 02:00 65 18 07/30/23 23:47 65 18 117/75 97 07/30/23 20:39 97.9 F 69 18 140/80 99 07/30/23 20:00 97.9 F 69 18 140/80 99 07/30/23 18:37 98.7 F 68 16 138/82 98 07/30/23 18:16 64 18 154/97 99 07/30/23 16:10 98.3 F 68 18 155/96 99 Intake and Output 07/30/23 07/31/23 07/31/23 22:59 06:59 14:59 Intake Total 68.02 Balance 68.02 Intake: Intake, IV Titration 68.02 Amount Heparin Sod,Pork in 0.45% 68.02 NaCl 25,000 unit In 0.45 % NaCl 1 250ml.bag @ 11. 73 UNITS/KG/HR 10.003 mls /hr IV .Q24H [facility] Rx#: [id number] Other: Voiding Method Toilet Toilet Weight 85.275 kg Results 07/31/23 06:12 07/31/23 06:12 Cardiac Enzymes 07/30/23 07/30/23 07/30/23 Range/Units 16:21 16:21 20:25 AST 58 (17-59) U/L Troponin I 0.218 H* 0.485 H* (0.000-0.034) ng/mL 07/30/23 Range/Units 23:43 AST (17-59) U/L Troponin I 0.833 H* (0.000-0.034) ng/mL Coagulation 07/30/23 07/30/23 07/31/23 Range/Units 16:21 23:43 06:12 PT 11.1 11.7 (10.0-12.5) sec APTT 23.6 32.9 H 54.9 H (22.0-30.0) sec CBC 07/30/23 07/31/23 Range/Units 16:21 06:12 WBC 5.4 4.4 (3.8-10.6) k/uL RBC 5.26 4.84 (4.30-5.90) m/uL Hgb 17.0 16.0 (13.0-17.5) gm/dL Hct 50.9 47.1 (39.0-53.0) % Plt Count 117 L 118 L (150-450) k/uL Comprehensive Metabolic Panel 07/30/23 Range/Units 16:21 Sodium 135 L (137-145) mmol/L Potassium 4.5 (3.5-5.1) mmol/L Chloride 103 (98-107) mmol/L Carbon Dioxide 24 (22-30) mmol/L BUN 23 H (9-20) mg/dL Creatinine 1.00 (0.66-1.25) mg/dL Glucose 190 H (74-99) mg/dL Calcium 9.7 (8.4-10.2) mg/dL AST 58 (17-59) U/L ALT 59 H (4-49) U/L Alkaline Phosphatase 52 (38-126) U/L Total Protein 7.2 (6.3-8.2) g/dL Albumin 4.9 (3.5-5.0) g/dL Current Medications Generic Name Dose Route Start Last Admin Trade Name Matthew PRN Reason Stop Dose Admin Acetaminophen 650 mg 07/30/23 17:43 07/30/23 18:16 Acetaminophen Tab 325 Mg Tab PO 650 mg Q6HR PRN Administration Mild Pain or Fever > 100.5 Heparin Sodium (Porcine) 0 unit 07/30/23 17:42 Heparin Sodium 1,000 Un/Ml (10ml Vl) IV PER PROTOCOL PRN Low PTT Protocol Heparin Sodium/Sodium Chloride 250 mls @ 10.003 mls/hr 07/30/23 18:00 07/31/23 00:59 25,000 unit/ Sodium Chloride IV 14.73 units/kg/hr .Q24H ADOL[facility] 12.561 mls/hr Titration Protocol 11.73 UNITS/KG/HR Sodium Chloride 1,000 mls @ 75 mls/hr 07/30/23 17:45 07/30/23 18:15 Saline 0.9% IV 75 mls/hr .[id number] ADOLFO Administration Lisinopril 10 mg 07/31/23 09:00 Lisinopril 10 Mg Tab PO DAILY ADOL[facility] Naloxone HCl 0.2 mg 07/30/23 17:43 Naloxone 0.4 Mg/Ml 1 Ml Vial IV Q2M PRN Opioid Reversal Nitroglycerin 0.5 inch 07/31/23 00:00 07/30/23 23:46 Nitroglycerin Oint 1 Inch/Gm Packet TOPICAL 0.5 inch Q8HR ADOLFO Administration Ondansetron HCl 4 mg 07/30/23 17:43 Ondansetron 4 Mg/2 Ml Vial IVP Q8HR PRN Nausea And Vomiting Pantoprazole Sodium 40 mg 07/31/23 09:00 Pantoprazole 40 Mg/10 Ml Vial IV DAILY [facility] Tramadol HCl 50 mg 07/31/23 04:36 Tramadol 50 Mg Tab PO TID PRN Pain Intake and Output 07/30/23 07/31/23 07/31/23 22:59 06:59 14:59 Intake Total 68.02 Balance 68.02 Intake: Intake, IV Titration 68.02 Amount Heparin Sod,Pork in 0.45% 68.02 NaCl 25,000 unit In 0.45 % NaCl 1 250ml.bag @ 11. 73 UNITS/KG/HR 10.003 mls /hr IV .Q24H [facility] Rx#: [id number] Other: Voiding Method Toilet Toilet Weight 85.275 kg 07/31/23 06:12 07/30/23 16:21
[2023-07-31 11:39] LABS: Glucose,Whole Blood 156 mg/dL (70-110)
--- NOTE | 2023-07-31 12:58 | CA ---
Transthoracic Echo Report Name: Manuel Cabrera Age: 63 Gender: M : 1960 Exam Date: 07/31/2023 09:11 Exam Location: [place] [facility] Ht (in): 73 Wt (lb): 188 Ordering Physician: Jose Armando Loaiza MD Attending/Referring Phys: [employer] Grade Teacher Lian Gross RDCS Procedure CPT: Indications: nstemi Cardiac Hx: Technical Quality: Good Contrast 1: Total Dose (mL): Contrast 2: Total Dose (mL): MEASUREMENTS (Male / Female) Normal Values 2D ECHO LV Diastolic Diameter PLAX 4.6 cm 4.2 - 5.9 / 3.9 - 5.3 cm LV Systolic Diameter PLAX 3.1 cm IVS Diastolic Thickness 1.3 cm 0.6 - 1.0 / 0.6 - 0.9 cm LVPW Diastolic Thickness 1.2 cm 0.6 - 1.0 / 0.6 - 0.9 cm LV Relative Wall Thickness 0.5 RV Internal Dim ED PLAX 1.9 cm LA Systolic Diameter LX 3.9 cm 3.0 - 4.0 / 2.7 - 3.8 cm LV Diastolic Volume MOD BP 87.8 cm??? 67 - 155 / 56 - 104 cm??? LV Systolic Volume MOD BP 31.0 cm??? 22 - 58 / 19 - 49 cm??? LV Ejection Fraction MOD BP 64.7 % >= 55 % LV Cardiac Index MOD BP 1785.9 cm???/min???m??? LV Diastolic Volume MOD 4C 89.2 cm??? LV Systolic Volume MOD 4C 33.6 cm??? LV Ejection Fraction MOD 4C 62.3 % LV Cardiac Index MOD 4C 1744.5 cm???/min???m??? LV Diastolic Length 4C 7.8 cm LV Systolic Length 4C 6.1 cm LV Diastolic Volume MOD 2C 86.5 cm??? LV Systolic Volume MOD 2C 27.2 cm??? LV Ejection Fraction MOD 2C 68.5 % LV Cardiac Index MOD 2C 1861.1 cm???/min???m??? LV Diastolic Length 2C 7.8 cm LV Systolic Length 2C 6.5 cm LA Volume 40.0 cm??? 18 - 58 / 22 - 52 cm??? LA Volume Index 19.0 cm???/m??? 16 - 28 cm???/m??? M-MODE Aortic Root Diameter MM 3.0 cm LA Systolic Diameter MM 3.3 cm LA Ao Ratio MM 1.1 AV Cusp Separation MM 2.1 cm DOPPLER AV Peak Velocity 114.4 cm/s AV Peak Gradient 5.2 mmHg MV Area PHT 2.6 cm??? Mitral E Point Velocity 52.9 cm/s Mitral A Point Velocity 70.2 cm/s Mitral E to A Ratio 0.8 MV Deceleration Time 286.6 ms TR Peak Velocity 178.0 cm/s TR Peak Gradient 12.7 mmHg Right Ventricular Systolic Press 17.7 mmHg FINDINGS Left Ventricle Left ventricular ejection fraction is estimated at 60-65%. Mildly increased septal wall thickness. Left ventricular cavity size normal. No obvious regional wall motion abnormalities. Right Ventricle Normal right ventricular size and function. Right ventricular systolic pressure within normal limits. Right Atrium Normal right atrial size. Left Atrium Normal left atrial size. Mitral Valve Structurally normal mitral valve. Trace to mild mitral regurgitation. Aortic Valve Trileaflet aortic valve. No aortic valve stenosis or regurgitation. Tricuspid Valve Structurally normal tricuspid valve. Trace to mild tricuspid regurgitation. Pulmonic Valve Structurally normal pulmonic valve. No pulmonic stenosis. Trace pulmonic regurgitation. Pericardium No pericardial or pleural effusion. Aorta Normal size aortic root and proximal ascending aorta. CONCLUSIONS LVH with preserved systolic function Previewed by: Dr. Carl Russell MD (Electronically Signed) Final Date: 31 July 2023 12:57
--- NOTE | 2023-07-31 13:30 | P.HPIM ---
History of Present Illness H&P Date: 07/31/23 Chief Complaint: Chest pain Patient is a 63-year-old male with a past medical history of diabetes type 2, obstructive sleep apnea on CPAP at home and prior history of right and left shoulder cuff repair presents to ER with complaints of chest pain. Patient has been having on and off chest pain mainly in the mid retrosternal region for the past 1 to 2 days. Patient initially felt like indigestion but was a little higher up in the chest. Patient did take antacids with minimal relief. Patient went out on the boat a few hours 8) and started having more chest pain and p ressure-like sensation and felt like someone sitting on the chest. At some point of the time patient also had numbness on the back of the right upper extremity. Patient also had an episode of chest pain again when he climbs steps. [place] nauseous and became diaphoretic. No radiation of the pain. Patient presented to ER for further evaluation. Denies any recent illnesses. No cough or sputum production. No fever no chills. Any recent travel. Denies any leg swelling. Chest x-ray showed no acute cardiopulmonary process. EKG showed sinus rhythm with first-degree AV block Laboratory data showed WBC 5.4 hemoglobin 17.0 and platelets 117 Sodium 135 potassium 4.5 chloride 103 bicarb is 24 BUN 23 and creatinine 1.0 and blood sugar 190 Troponin 0.218, 0.485 and 0.833 Review of Systems Constitutional: Patient denies any fever or chills . No generalized weakness or weight loss. Abdomen: Patient denied nausea vomiting and diarrhea and abdominal pain. Cardiovascular: Patient denies any chest pain or short of breath no palpitations. Respiratory: patient denied any cough or sputum production. No shortness of breath Neurologic: Patient denied any numbness or tingling. no headache. Musculoskeletal: Patient denies any complaints of joint swelling or deformity. Skin: Negative Psychiatric: Negative Endocrine: No heat or cold intolerance. No recent weight gain. Genitourinary: No dysuria or hematuria. All other 14 point ROS negative except the above Past Medical History Past Medical History: Diabetes Mellitus, Sleep Apnea/CPAP/BIPAP Additional Past Medical History / Comment(s): CURRENTLY DIET CONTROL DIABETES. STATES STOPPED ALL DIABETIC MEDS ABOUT 2 MONTHS AGO BECUASE NOTHING WAS WORKING. STATES THAT [facility] [place] ABOUT 240. fatty liver History of Any Multi-Drug Resistant Organisms: None Reported Past Surgical History: Orthopedic Surgery Additional Past Surgical History / Comment(s): LT ELBOW DENERVATION. BACK I NJECTIONS. COLONOSOCPY, right and left shoulder rotator cuff repairs Past Anesthesia/Blood Transfusion Reactions: Postoperative Nausea & Vomiting (PONV) Past Psychological History: No Psychological Hx Reported Smoking Status: Never smoker Past Alcohol Use History: None Reported Past Drug Use History: None Reported - Past Family History Father Family Medical History: Cancer Additional Family Medical History / Comment(s): PROSTATE Medications and Allergies Home Medications Medication Instructions Recorded Confirmed Type Diclofenac Sodium [Voltaren] 50 mg PO TID PRN 11/23/20 07/30/23 History methocarbamoL [Methocarbamol] 500 mg PO DIRECTED PRN 11/23/20 07/30/23 History traMADol HCL [Ultram] 50 mg PO TID PRN 11/23/20 07/30/23 History Allerplex 1 dose PO Q4H PRN 07/30/23 07/30/23 History Antronex 1 dose PO Q4H PRN 07/30/23 07/30/23 History Cetirizine HCl [Zyrtec] 10 mg PO DAILY 07/30/23 07/30/23 History Cetirizine HCl [Zyrtec] 10 mg PO HS PRN 07/30/23 07/30/23 History Dulaglutide [Trulicity] 0.75 mg SQ TU 07/30/23 07/30/23 History Empagliflozin [Jardiance] 25 mg PO DAILY 07/30/23 07/30/23 History Fenofibrate Nanocrystallized 145 mg PO DAILY 07/30/23 07/30/23 History [Fenofibrate] lisinopriL [Zestril] 10 mg PO DAILY 07/30/23 07/30/23 History Allergies Allergy/AdvReac Type Severity Reaction Status Date / Time Sulfa (Sulfonamide Allergy Rash/Hives Verified 07/30/23 17:39 Antibiotics) Physical Exam Vitals: Vital Signs Temp Pulse Pulse Resp BP BP Pulse Ox 07/31/23 07:46 97.8 F 64 16 153/91 98 07/31/23 04:00 60 18 113/72 97 07/31/23 02:00 65 18 07/30/23 23:47 65 18 117/75 97 07/30/23 20:39 97.9 F 69 18 140/80 99 07/30/23 20:00 97.9 F 69 18 140/80 99 07/30/23 18:37 98.7 F 68 16 138/82 98 07/30/23 18:16 64 18 154/97 99 07/30/23 16:10 98.3 F 68 18 155/96 99 Intake and Output 07/30/23 07/31/23 07/31/23 22:59 06:59 14:59 Intake Total 68.02 82.693 Balance 68.02 82.693 Intake: Intake, IV Titration 68.02 82.693 Amount Heparin Sod,Pork in 0.45% 68.02 82.693 NaCl 25,000 unit In 0.45 % NaCl 1 250ml.bag @ 11. 73 UNITS/KG/HR 10.003 mls /hr IV .Q24H [facility] Rx#: [id number] Other: Voiding Method Toilet Toilet Weight 85.275 kg PHYSICAL EXAMINATION: Patient is lying in the bed comfortably, no acute distress, awake alert and oriented.. HEENT: Normocephalic. Neck is supple. Pupils reactive. Nostrils clear. Oral cavity is moist. Neck reveals no JVD, carotid bruits, or thyromegaly. CHEST EXAMINATION: Trachea is central. Symmetrical expansion. Lung caba clear to auscultation and percussion. CARDIAC: Normal S1, S2 with no gallops. No murmurs ABDOMEN: Soft. Bowel sounds normal. No organomegaly. No abdominal bruits. Extremities: reveal no edema. No clubbing or cyanosis Neurologically awake, alert, oriented x3 with well-coordinated movements. No focal deficits noted Skin: No rash or skin lesions. Psychiatric: Coperative. Nonsuicidal Musculoskeletal: No joint swelling or deformity. Normal range of motion. Results CBC & Chem 7: 07/31/23 06:12 07/31/23 06:12 Labs: Abnormal Lab Results - Last 24 Hours (Table) 07/30/23 07/30/23 07/30/23 Range/Units 16:21 16:21 16:21 Plt Count 117 L (150-450) k/uL Lymphocytes # 0.9 L (1.0-4.8) k/uL APTT (22.0-30.0) sec Sodium 135 L (137-145) mmol/L Chloride (98-107) mmol/L Carbon Dioxide (22-30) mmol/L BUN 23 H (9-20) mg/dL Glucose 190 H (74-99) mg/dL POC Glucose (mg/dL) (70-110) mg/dL ALT 59 H (4-49) U/L Troponin I 0.218 H* (0.000-0.034) ng/mL 07/30/23 07/30/23 07/30/23 Range/Units 19:53 20:25 23:43 Plt Count (150-450) k/uL Lymphocytes # (1.0-4.8) k/uL APTT 32.9 H (22.0-30.0) sec Sodium (137-145) mmol/L Chloride (98-107) mmol/L Carbon Dioxide (22-30) mmol/L BUN (9-20) mg/dL Glucose (74-99) mg/dL POC Glucose (mg/dL) 140 H (70-110) mg/dL ALT (4-49) U/L Troponin I 0.485 H* (0.000-0.034) ng/mL 07/30/23 07/31/23 07/31/23 Range/Units 23:43 05:42 06:12 Plt Count 118 L (150-450) k/uL Lymphocytes # (1.0-4.8) k/uL APTT (22.0-30.0) sec Sodium (137-145) mmol/L Chloride (98-107) mmol/L Carbon Dioxide (22-30) mmol/L BUN (9-20) mg/dL Glucose (74-99) mg/dL POC Glucose (mg/dL) 214 H (70-110) mg/dL ALT (4-49) U/L Troponin I 0.833 H* (0.000-0.034) ng/mL 07/31/23 07/31/23 Range/Units 06:12 06:12 Plt Count (150-450) k/uL Lymphocytes # (1.0-4.8) k/uL APTT 54.9 H (22.0-30.0) sec Sodium (137-145) mmol/L Chloride 114 H (98-107) mmol/L Carbon Dioxide 15 L (22-30) mmol/L BUN 24 H (9-20) mg/dL Glucose 199 H (74-99) mg/dL POC Glucose (mg/dL) (70-110) mg/dL ALT (4-49) U/L Troponin I (0.000-0.034) ng/mL Thrombosis Risk Factor Assmnt - DVT/VTE Prophylaxis DVT/VTE Prophylaxis: Pharmacologic Prophylaxis ordered - Choose All That Apply Any of the Below Risk Factors Present?: No Other Risk Factors: Yes Each Risk Factor Represents 2 Points: Age 61-74 years Other congenital or acquired thrombophilia - If yes, enter type in comment: No Thrombosis Risk Factor Assessment Total Risk Factor Score: 2 Thrombosis Risk Factor Assessment Level: Low Risk Assessment and Plan Assessment: Acute non-ST elevated [place] Hyperglycemia is uncontrolled diabetes type 2 Hypertension Hyperlipidemia Hypovolemic hyponatremia Obstructive sleep apnea on CPAP at home Prior history of bilateral shoulder rotator cuff surgeries. GI and DVT prophylaxis. Plan: Patient will be continued on telemonitoring. Continue with heparin drip. Continue with aspirin and statins and patient was also placed on Nitropaste. Continue with pain management and cardiology is on board. Planning for catheterization this afternoon. Follow-up closely. Discussed with the family in detail at bedside. Time with Patient: Greater than 30
[2023-07-31] MEDS ORDERED: LIDOCAINE 1% INJ 10MG/ML (20 ML MDV) ONE (13:41)
[2023-07-31] MEDS ORDERED: VERAPAMIL 2.5 MG/ML 2 ML AMP ONE (13:41)
[2023-07-31] MEDS ORDERED: HEPARIN SODIUM 1,000 UN/ML (10ML VL) ONE (13:42)
[2023-07-31] MEDS ORDERED: fentaNYL (PF) 50 MCG/ML 2 ML AMP ONE (13:43)
[2023-07-31] MEDS: IV FLUID CONTINUATION 1,000 ML IV ONE (14:00)
[2023-07-31] MEDS: LIDOCAINE 1% INJ 10MG/ML (20 ML MDV) SQ ONE (14:21)
[2023-07-31] MEDS: fentaNYL (PF) 50 MCG/1 ML VIAL IVP ONE (14:21)
[2023-07-31] MEDS: MIDAZOLAM 2 MG/2 ML VIAL IVP ONE (14:21)
[2023-07-31] MEDS: VERAPAMIL 2.5 MG/ML 2 ML AMP INTRAARTER ONE (14:23)
[2023-07-31] MEDS: HEPARIN SODIUM 1,000 UN/ML (10ML VL) IV ONE (14:26)
[2023-07-31 14:46] VITALS: BMI 24.7
[2023-07-31] MEDS ORDERED: PRASUGREL 10 MG TAB ONE (15:02)
[2023-07-31] MEDS: PRASUGREL 10 MG TAB PO ONE (15:03)
[2023-07-31] MEDS: IOPAMIDOL-370 100ML BTL INJ ONE ×2 (15:12→15:45)
[2023-07-31] MEDS ORDERED: ATROPINE SULFATE 0.1 MG/ML 10ML SYRINGE IV PRN (15:43)
[2023-07-31] MEDS ORDERED: RX INFO: IV CONTRAST WAS GIVEN 1 EACH MISC MISCELLANE PRN (15:43)
[2023-07-31] MEDS ORDERED: MAG HYDROX/AL HYDROX/SIMETH 30 ML CUP PO PRN (15:43)
[2023-07-31] MEDS ORDERED: ZOLPIDEM 5 MG TAB PO PRN (15:43)
--- NOTE | 2023-07-31 15:47 | P.CARDCATH ---
Date of Procedure: 07/31/23 Description of Procedure: DIAGNOSTIC CORONARY ANGIOGRAPHY and LEFT HEART CATH REPORT PROCEDURES PERFORMED: Left heart catheterization Selective coronary angiography Moderate conscious sedation 22 mins Right radial access INDICATION: NSTEMI 63-year-old male with past medical history of hypercholesterolemia not managed on statin because of statin intolerance, type 2 diabetes, obesity presented to the hospital because of 3 to 4 days of substernal chest pain, reduction in exercise capacity and dyspnea on exertion. Reports that over the last 2 days he is noticing getting short of breath with 1 flight of stairs and substernal chest heaviness with exertion. On admission he had resting ECG changes with T wave inversions in inferior lead. He also had evidence of elevated troponin. He was ruled in as an NSTEMI and was taken for heart catheterization. CONSENT: I have explained the procedural steps of above-mentioned procedures in layman's terms to the patient. I discussed the risks (including but not limited to stroke, emergent vascular or cardiac surgery or ), benefits and alternative therapies for the above-mentioned procedure. I discussed the risks of sedation/analgesia and blood product administration (if indicated). The patient has indicated understanding and acceptance of these risks. Conscious Sedation: Patient's ECG, heart rate, blood pressure, pulse oximetry were monitored throughout the duration of procedure under my direct supervision. [2] mg Versed and [50] mg Fentanyl were used for induction of moderate conscious sedation. Total duration of moderate concious sedation 22 minutes. PROCEDURE: After explaining the risks, benefits and alternatives of the above mentioned procedures in detail to the patient, informed consent was obtained. Patient was taken to the catheterization lab, prepped and draped in usual sterile fashion using universal precuations. Barbow and stacia test were performed to confirm adequate perfusion to fingers. 1% lidocaine was infiltrated over the right radial artery. A 6-Honduran sheath was placed and secured in the right radial artery using modified Seldinger technique. The sheath was flushed and 5 mg verapamil was administered intra- arterially. J tipped wire was advanced under fluoroscopic guidance. Once the wire tip reached aortic root 2500 units of IV heparin was given. Patient was on IV heparin drip prior to the heart catheterization procedure which was turned off 30 minutes prior to starting the heart cath. Over the wire JR4 diagnostic catheter was advanced. The wire in place the catheter was manipulated to cross the aortic valve and entered into LV under fluoroscopy guidance. The wire was removed and the catheter was flushed. LV pressures were obtained and pullback was performed under fluoroscopy. Catheter was manipulated to selectively engage the right coronary ostium. Right coronary angiography was performed in different angiographic projections. The JR4 diagnostic catheter was exchanged for a JL 4 diagnostic catheter over the J-wire. The wire was removed, catheter was flushed and manipulated under fluoroscopy to selectively engaged the left coronary ostium. Left coronary angioplasty was performed in different angiographic projections. Catheter was removed over the wire. Radial sheath was flushed. The J-wire was left in aortic root. Additional 3000 units of IV heparin was given. HEMODYNAMICS: Aortic Pressure: 140/77 mmHg. LV pressure: 144/0 mmHg. LVEDP 12 mmHg. There was no significant gradient across the aortic valve. SELECTIVE CORONARY ARTERIOGRAPHY: LEFT MAIN: The left main is a large caliber vessel which bifurcates into the LAD and circumflex. Left main appears angiographically normal. LEFT ANTERIOR DESCENDING CORONARY ARTERY: LAD is a large caliber vessel which wraps around to the apex. Proximal RCA gives a small diagonal branch. Just prior to origin of diagonal 2 branch, LAD has eccentric 20 to 30% disease. Diagonal 2 is a medium caliber vessel. Diagonal 2 and mid segment has 50 to 60% luminal narrowing. Mid LAD has mild luminal irregularities. Distal LAD has mild luminal irregularities. LEFT CIRCUMFLEX CORONARY ARTERY: It is nondominant vessel. Left circumflex is a moderate caliber vessel. Proximal LCx appears angiographically normal. Repeat rise to a small OM1 branch. Mid LCx has 50 to 60% eccentric sequential disease. Mid LCx continues to give 3 OM branches which are small and appears an giographically normal. RIGHT CORONARY ARTERY: Dominant vessel. Proximal RCA has mild luminal irregularities. Mid RCA has 90 to 95% tubular stenosis. Distal RCA has mild luminal irregularities. It gives rise to PDA and PL branches which appears angiographically normal. IMPRESSION: 95% mid RCA stenosis with MICHI-3 flow 50 to 60% mid LCx disease 50 to 60% mid diagonal 2 disease 20 to 30% distal proximal LAD Normal LVEDP PLAN: Plan for PCI of RCA with Dr. Bear. Further recommendations to follow Dual antiplatelet therapy. Patient does report intolerance to statin in the past on multiple occasions when he was tried on statins. Patient would highly benefit from Evolocumab. Performing Physician Vinod Benoit MD, FACC, RPVI Thank you for allowing [facility] to participate in this patient's care. Feel free to reach out in case of any followup questions.
--- NOTE | 2023-07-31 15:51 | P.CARDCATH ---
Date of Procedure: 07/31/23 Description of Procedure: PERCUTANEOUS TRANSLUMINAL CORONARY ANGIOPLASTY CLINICAL INFORMATION: The patient is a 63-year-old male with a known history of diabetes, hypertension who presented with evidence of non-STEMI. He underwent cardiac catheterization by Dr Benoit and was found to have severe stenosis in volving the mid RCA and a diffusely diseased vessel. Recommendations were made regarding angioplasty and stenting. The procedure as well as the risks and the complications were discussed with the patient who was in full understanding and agreement. PROCEDURE: A 6 [place] 0.75 guiding catheter was introduced into the system. After cannulating the right coronary ostium, a 0.014 BMW J-wire was advanced across the lesion and positioned distally. Following that a 2.5 x 12 mm trek balloon was advanced and inflated at 8 atmosphere. After removing the balloon a Proficient eye IVUS catheter was introduced and images were obtained and revealed a distal vessel of 3.5 mm with mild calcification. Following that a 3.25 x 33 mm Xience zara point stent was deployed. It was dilated at 16 sravani. Repeat IVUS imaging was done and subsequently 4.0 x 15 mm NC trek balloon was advanced and multiple inflation at a maximum of 10 sravani were done. After the last inflation, after appropriate wait, the balloon and the guidewire were withdrawn back into the guiding catheter. Images were obtained and repeated. Those images reveal stable successful stenting. At that point, the guiding catheter, the balloon, and guidewire were removed. The sheath was removed. Hemostasis was obtained with deployment of a TR band. There were no immediate complications. The patient was returned to the room in stable condition. Of note, the patient received 6 500 units of heparin as well as Effient. His ACT was followed. There was no immediate complications. He had EKG changes with the inflations but no chest discomfort. His EKG changes resolved at the end of the procedure RESULTS: Successful stenting of the mid RCA with reduction of stenosis from 99% to 0% with adjunctive IVUS imaging with MICHI-3 flow in a diffuse pattern of disease. RECOMMENDATIONS: The patient will continue on aspirin and Effient without any interruption for 1 year in addition to aggressive coronary risks modifications, attempting to maintain LDL below 70 mg/dL. The findings and recommendations were discussed with the patient and the family, they are in full understanding and agreement. Duration of sedation: 34 minutes
[2023-07-31 17:01] LABS: Glucose,Whole Blood 145 mg/dL (70-110)
[2023-07-31] MEDS ORDERED: DEXTROSE 50% SYRINGE 50 ML IVP PRN ×2 (18:48)
[2023-07-31 20:11] LABS: Glucose,Whole Blood 197 mg/dL (70-110)
[2023-07-31] MEDS: ATORVASTATIN 80 MG TAB PO SCH (20:44)
[2023-07-31] MEDS: INSULIN ASPART (NovoLOG) 100 UNIT/ML VIAL SQ SCH (20:44)
[2023-07-31] MEDS: LORATADINE 10 MG TAB PO PRN (20:47)
[2023-08-01 02:57] LABS: Chol/HDL Ratio 6.78 Ratio; HDL Cholesterol 30.4 mg/dL (40.00-60.00); VLDL Calculation 108.2 mg/dL (5.00-40.00)
[2023-08-01 05:36] LABS: Glucose,Whole Blood 220 mg/dL (70-110)
[2023-08-01] MEDS: PANTOPRAZOLE 40 MG TABLET PO SCH (06:21)
[2023-08-01] MEDS ORDERED: HEPARIN SODIUM,PORCINE 10,000 UNIT in SODIUM CHLORIDE 0.9% 1,000 ML IRRIGATION PRN (07:00)
[2023-08-01] MEDS ORDERED: HEPARIN SODIUM,PORCINE (1 ML) 2,500 UNIT in SODIUM CHLORIDE 0.9% 250 ML IRRIGATION PRN (07:00)
[2023-08-01] MEDS: PRASUGREL 10 MG TAB PO SCH (08:11)
[2023-08-01 08:46] LABS: Basophils % (A) 1 %; Eosinophils # (A) 0.1 k/uL (0-0.7); Eosinophils % (A) 2 %; HGB 16.4 gm/dL (13.0-17.5); Lymphocytes # (A) 0.9 k/uL (1.0-4.8); Lymphocytes % (A) 19 %; MCH 31.8 pg (25.0-35.0); MCHC 33.4 g/dL (31.0-37.0); MCV 95.1 fL (80.0-100.0); Mean Platelet Volume 10.7; Monocytes # (A) 0.4 k/uL (0-1.0); Monocytes % (A) 8 %; Neutrophils # (A) 3.4 k/uL (1.3-7.7); Neutrophils % (A) 70 %; Platelet Count 125 k/uL (150-450); RBC 5.15 m/uL (4.30-5.90); RDW 13.1 % (11.5-15.5); WBC 4.9 k/uL (3.8-10.6)
[2023-08-01 09:15] LABS: African American GFR (CKD) >90 (>60 ml/min/1.73 sqM); Anion Gap 7 mmol/L; Blood Urea Nitrogen 24 mg/dL (9-20); Calcium 9.2 mg/dL (8.4-10.2); Carbon Dioxide 23 mmol/L (22-30); Chloride 107 mmol/L (98-107); Glucose 161 mg/dL (74-99); Non-African American GFR(CKD) 83 (>60 ml/min/1.73 sqM); Potassium 4.4 mmol/L (3.5-5.1); Sodium 137 mmol/L (137-145)
[2023-08-01 09:39] VITALS: TEMP 97.9
[2023-08-01] MEDS: METOPROLOL SUCCINATE (ER) 25 MG TAB.ER.24H PO SCH (11:09)
[2023-08-01 11:48] VITALS: BP 136/82; PULSE 63; RESP 16
[2023-08-01 11:49] LABS: Glucose,Whole Blood 186 mg/dL (70-110)
--- NOTE | 2023-08-01 12:35 | P.PN ---
Subjective HISTORY OF PRESENT ILLNESS: This is a 63-year-old male with a past medical history significant for hypertension, hyperlipidemia, and diabetes. 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 We have been asked to see the patient in consultation for non- STEMI. Patient examined at the bedside. Patient states he has been having chest discomfort for the past 3 days. He states that initially felt like indigestion but then became more of a pain type sensation. He also reports having a headache. He states yesterday he was sitting on a boat when he developed another episode of chest pain. He states yesterday he walked up a flight of stairs and needed to rest which is unusual for him as he usually swims 16 laps without problems. He is a non-smoker. He denies a known history of CAD. Patient was found to have elevated troponins and was started on IV heparin. At the time of examination this morning, patient denies chest pain or pressure. Vital signs are stable. DIAGNOSTICS: - EKG reveals sinus mechanism with T wave inversions inferiorly. - Chest xray negative for acute process. - Laboratory data: Troponin 0.218. 0.485. 0.833. - Current home cardiac medications include lisinopril 10 mg daily and fenofibrate 145 mg daily. August 01, 2023 Patient is status postcardiac catheterization with Dr. Benoit revealing 95% mid RCA stenosis, 50 to 60% mid left circumflex disease, 50 to 60% mid diagonal 2 disease, 20 to 30% distal proximal LAD, and normal LVEDP. Patient then underwent stenting of the mid RCA by Dr. Bear. Patient examined this morning the bedside. Patient currently denies chest pain or pressure. He denies shortness of breath. Vital signs are stable. Echocardiogram completed revealing ejection fraction 60 to 65%, trace to mild MR and trace to mild TR. PHYSICAL EXAM: VITAL SIGNS: Reviewed. GENERAL: Well-developed in no acute distress. HEENT: Head is normocephalic. Pupils are equal, round. Sclerae anicteric. Mucous membranes of the mouth are moist. Neck supple. No JVD or thyromegaly LUNGS: Respirations even and unlabored. Lungs essentially clear to auscultation bilaterally. HEART: Regular rate and rhythm. S1 and S2 heard. ABDOMEN: Soft. Nondistended. Nontender. EXTREMITIES: Normal range of motion. No clubbing or cyanosis. Peripheral pulses intact. No lower extremity edema NEUROLOGIC: Awake and alert. Oriented x 3. ASSESSMENT: Non-STEMI, status post cardiac catheterization as above with stenting to the mid RCA Hypertension Hyperlipidemia Previous statin intolerance Diabetes PLAN: Continue dual antiplatelet therapy with aspirin and Effient for 12 months Patient with previous statin intolerance and states it gives him " heart attack symptoms". Patient agreeable to trial statin therapy again. Patient to continue on atorvastatin. Will decrease dosage to 40 mg at night. LDL goal less than 70. Continue additional cardiac medications Patient is stable for discharge home today from a cardiac standpoint Patient is to follow-up postdischarge in the office with Dr. Benoit Nurse practitioner note has been reviewed by physician. Signing provider agrees with the documented findings, assessment, and plan of care documented by ADMINISTRATIVE PROJECT COORDINATOR as a scribe. Objective - Vital Signs Vital signs: Vital Signs Temp 97.9 F 08/01/23 08:00 Pulse 63 08/01/23 11:47 Resp 16 08/01/23 11:47 BP 136/82 08/01/23 11:47 Pulse Ox 100 08/01/23 11:47 FiO2 Intake & Output 07/31/23 08/01/23 08/01/23 18:59 06:59 18:59 Intake Total 327.315 578 Balance 327.315 578 Weight 85.275 kg Intake: IV 50 Intake, IV Titration 159.315 Amount Heparin Sod,Pork in 0.45% 159.315 NaCl 25,000 unit In 0.45 % NaCl 1 250ml.bag @ 11. 73 UNITS/KG/HR 10.003 mls /hr IV .Q24H COUNT INCLUDES THE [facility] Rx#: [id number] Oral 118 578 Other: Voiding Method Toilet Toilet # Voids 2 2 1 - Labs CBC & Chem 7: 08/01/23 07:24 08/01/23 07:24 Labs: Abnormal Lab Results - Last 24 Hours (Table) 07/31/23 07/31/23 07/31/23 Range/Units 06:12 06:12 16:59 Plt Count (150-450) k/uL Lymphocytes # (1.0-4.8) k/uL BUN (9-20) mg/dL Glucose (74-99) mg/dL POC Glucose (mg/dL) 145 H (70-110) mg/dL Hemoglobin A1c 6.9 H (<=6.0) % Triglycerides 541.00 H (0.00-149.00) mg/dL Cholesterol 206.00 H (0.00-200.00) mg/dL VLDL Cholesterol, Calc 108.20 H (5.00-40.00) mg/dL HDL Cholesterol 30.40 L (40.00-60.00) mg/dL 07/31/23 08/01/23 08/01/23 Range/Units 20:10 05:35 07:24 Plt Count 125 L (150-450) k/uL Lymphocytes # 0.9 L (1.0-4.8) k/uL BUN (9-20) mg/dL Glucose (74-99) mg/dL POC Glucose (mg/dL) 197 H 220 H (70-110) mg/dL Hemoglobin A1c (<=6.0) % Triglycerides (0.00-149.00) mg/dL Cholesterol (0.00-200.00) mg/dL VLDL Cholesterol, Calc (5.00-40.00) mg/dL HDL Cholesterol (40.00-60.00) mg/dL 08/01/23 08/01/23 Range/Units 07:24 11:47 Plt Count (150-450) k/uL Lymphocytes # (1.0-4.8) k/uL BUN 24 H (9-20) mg/dL Glucose 161 H (74-99) mg/dL POC Glucose (mg/dL) 186 H (70-110) mg/dL Hemoglobin A1c (<=6.0) % Triglycerides (0.00-149.00) mg/dL Cholesterol (0.00-200.00) mg/dL VLDL Cholesterol, Calc (5.00-40.00) mg/dL HDL Cholesterol (40.00-60.00) mg/dL
== END 2023-08-01 12:42 | disposition home or self-care (01) | DRG 174 ==
LOC: EC 16:03 → 3SCARD 17:44
PROVIDERS: ADMIT Hospitalist; ATTEND Hospitalist
PROC: B240ZZ3 Ultrasonography of Single Coronary Artery, Intravascular (ICD-10-PCS; principal; 2023-07-31 11:25)
PROC: 027034Z Dilation of Coronary Artery, One Artery with Drug-eluting Intraluminal Device, Percutaneous Approach (ICD-10-PCS; principal; 2023-07-31 11:25)
PROC: B2111ZZ Fluoroscopy of Multiple Coronary Arteries using Low Osmolar Contrast (ICD-10-PCS; 2023-07-31 11:25)
PROC: 4A023N7 Measurement of Cardiac Sampling and Pressure, Left Heart, Percutaneous Approach (ICD-10-PCS; 2023-07-31 11:25)
DX: I21.4 Non-ST elevation (NSTEMI) myocardial infarction (principal); G47.33 Obstructive sleep apnea (adult) (pediatric); I10 Essential (primary) hypertension; I25.10 Atherosclerotic heart disease of native coronary artery without angina pectoris; I44.0 Atrioventricular block, first degree; E11.65 Type 2 diabetes mellitus with hyperglycemia; E78.00 Pure hypercholesterolemia, unspecified; E86.1 Hypovolemia; E87.1 Hypo-osmolality and hyponatremia; K76.0 Fatty (change of) liver, not elsewhere classified; Z79.84 Long term (current) use of oral hypoglycemic drugs; Z79.899 Other long term (current) drug therapy; R51.9 Headache, unspecified; Z71.3 Dietary counseling and surveillance; Z88.2 Allergy status to sulfonamides; Z28.21 Immunization not carried out because of patient refusal
CPT/HCPCS: 36415; 71046; 76937; 80048; 80053; 80061; 83036; 83721; 84484; 85025; 85610; 85730; 92978; 93005; 93306; 93458; 94760; 96361; 96365; 96375; 99291

== ENCOUNTER 2023-09-01 13:45 | Inpatient (IN) | payer OTHER ==
--- NOTE | 2023-09-01 14:05 | ED ---
Chest Pain HPI - General Chief Complaint: Chest Pain Stated Complaint: Chest pain Time Seen by Provider: 09/01/23 13:47 Source: patient, RN notes reviewed, old records reviewed Mode of arrival: ambulatory Limitations: no limitations - History of Present Illness Initial Comments: This is a 63-year-old male to the ER for evaluation of what is chest pain today. Chest pain not feeling well possible symptoms of unresponsiveness or decreased levels of responsiveness at times patient presents the emergency department for persistent chest pain after recent stent placement 1 month ago patient states he felt good for maybe a day and has been feeling unwell since. Chest pain shortness of breath and diaphoresis is getting worse MD Complaint: chest pain, other (Syncopal near syncopal event) -: days(s) Onset: during rest, during exertion Pain Location: substernal, left chest Pain Radiation: none Severity: moderate Severity scale (1-10): 4 Quality: tightness Consistency: constant Improves With: nothing Worsens With: nothing Anginal Symptoms: sense of impending doom Other Symptoms: palpitations Treatments Prior to Arrival: none - Related Data Home Medications Medication Instructions Recorded Confirmed Diclofenac Sodium [Voltaren] 50 mg PO TID PRN 11/23/20 09/01/23 methocarbamoL 500 mg PO DIRECTED PRN 11/23/20 09/01/23 traMADol HCL [Ultram] 50 mg PO TID PRN 11/23/20 09/01/23 Allerplex 1 dose PO Q4H PRN 07/30/23 09/01/23 Antronex 1 dose PO Q4H PRN 07/30/23 09/01/23 Cetirizine HCl [Zyrtec] 10 mg PO DAILY 07/30/23 09/01/23 Dulaglutide [Trulicity] 0.75 mg SQ TU 07/30/23 09/01/23 Empagliflozin [Jardiance] 25 mg PO DAILY 07/30/23 09/01/23 Fenofibrate Nanocrystallized 145 mg PO DAILY 07/30/23 09/01/23 [Fenofibrate] lisinopriL [Zestril] 10 mg PO DAILY 07/30/23 09/01/23 Previous Rx's Medication Instructions Recorded Acetaminophen Tab [Tylenol] 650 mg PO Q6HR PRN tab 08/01/23 Aspirin 81 mg PO DAILY #90 tab 08/01/23 Atorvastatin Calcium [Lipitor] 40 mg PO DAILY 90 Days #90 tab 08/01/23 Nitroglycerin Sl Tabs [Nitrostat] 0.4 mg SUBLINGUAL Q5M PRN #100 tab 08/01/23 Prasugrel [Effient] 10 mg PO DAILY #90 tab 08/01/23 amLODIPine [Norvasc] 10 mg PO DAILY 30 Days #30 tab 09/03/23 Allergies Allergy/AdvReac Type Severity Reaction Status Date / Time Sulfa (Sulfonamide Allergy Rash/Hives Verified 09/01/23 14:46 Antibiotics) Review of Systems ROS Statement: Those systems with pertinent positive or pertinent negative responses have been documented in the HPI. ROS Other: All systems not noted in ROS Statement are negative. EKG Findings - EKG Comments: EKG Findings:: EKG is sinus 72 WA 216 QRS 110 QTc 403 - EKG Results: EKG: interpreted by SERGE Past Medical History Past Medical History: Diabetes Mellitus, Sleep Apnea/CPAP/BIPAP Additional Past Medical History / Comment(s): CURRENTLY DIET CONTROL DIABETES. STATES STOPPED ALL DIABETIC MEDS ABOUT 2 MONTHS AGO BECUASE NOTHING WAS WORKING. STATES THAT CBG STAYS ABOUT 240. fatty liver History of Any Multi-Drug Resistant Organisms: None Reported Past Surgical History: Orthopedic Surgery Additional Past Surgical History / Comment(s): LT ELBOW DENERVATION. BACK INJECTIONS. COLONOSOCPY, right and left shoulder rotator cuff repairs Past Anesthesia/Blood Transfusion Reactions: Postoperative Nausea & Vomiting (PONV) Past Psychological History: No Psychological Hx Reported Smoking Status: Never smoker Past Alcohol Use History: Rare Past Drug Use History: None Reported - Past Family History Father Family Medical History: Cancer Additional Family Medical History / Comment(s): PROSTATE General Exam Limitations: no limitations General appearance: alert, in no apparent distress, anxious, in distress Head exam: Present: atraumatic, normocephalic, normal inspection Eye exam: Present: normal appearance, PERRL, EOMI. Absent: scleral icterus, conjunctival injection, periorbital swelling ENT exam: Present: normal exam, mucous membranes moist Neck exam: Present: normal inspection. Absent: tenderness, meningismus, lymphadenopathy Respiratory exam: Present: normal lung sounds bilaterally. Absent: respiratory distress, wheezes, rales, rhonchi, stridor Cardiovascular Exam: Present: regular rate, normal rhythm, normal heart sounds. Absent: systolic murmur, diastolic murmur, rubs, gallop, clicks GI/Abdominal exam: Present: soft, normal bowel sounds. Absent: distended, tenderness, guarding, rebound, rigid Extremities exam: Present: normal inspection, full ROM, normal capillary refill. Absent: tenderness, pedal edema, joint swelling, calf tenderness Back exam: Present: normal inspection Neurological exam: Present: alert, oriented X3, CN II-XII intact Psychiatric exam: Present: normal affect, normal mood Skin exam: Present: warm, dry, intact, normal color. Absent: rash Course Vital Signs 09/01/23 09/01/23 09/01/23 13:46 13:59 14:02 Temperature 97.9 F Pulse Rate 81 77 Respiratory 18 18 18 Rate Blood Pressure 114/79 122/77 122/77 O2 Sat by Pulse 95 98 Oximetry 09/01/23 09/01/23 09/01/23 14:35 14:38 14:40 Temperature Pulse Rate 58 L 67 Respiratory 18 20 Rate Blood Pressure 84/73 140/80 127/78 O2 Sat by Pulse 100 99 Oximetry 09/01/23 09/01/23 09/01/23 14:45 14:55 15:10 Temperature Pulse Rate 64 68 67 Respiratory 18 18 18 Rate Blood Pressure 120/74 127/76 135/87 O2 Sat by Pulse 100 100 100 Oximetry 09/01/23 09/01/23 09/01/23 15:20 15:35 15:46 Temperature Pulse Rate 65 70 74 Respiratory 18 20 18 Rate Blood Pressure 136/85 155/90 147/91 O2 Sat by Pulse 100 100 95 Oximetry 09/01/23 09/01/23 09/01/23 15:52 16:06 16:49 Temperature Pulse Rate 76 76 78 Respiratory 18 18 18 Rate Blood Pressure 148/84 141/89 136/86 O2 Sat by Pulse 98 98 98 Oximetry - Reevaluation(s) Reevaluation #1: Medical records reviewed Reevaluation #2: Symptoms unchanged Reevaluation #3: Patient informed of results and questions answered Reevaluation #4: Was pt. sent in by a medical professional or institution (, PA, SHAREPOINT MANAGER, urgent care, hospital, or correction...) When possible be specific @ -no Did you speak to anyone other than the patient for history (EMS, parent, family, police, friend...)? What history was obtained from this source @ -no Did you review nursing and triage notes (agree or disagree)? Why? @ -agree Are old charts reviewed (outside hosp., previous admission, EMS record, old EKG, old radiological studies, urgent care reports/EKG's, correction records)? Report findings @ -yes Differential Diagnosis (chest pain, altered mental status, abdominal pain women, abdominal pain men, vaginal bleeding, weakness, fever, dyspnea, syncope, headache, dizziness, GI bleed, back pain, seizure, CVA, palpatations, mental health, musculoskeletal)? @ -prior EKG interpreted by me (3pts min.). @ -yes X-rays interpreted by me (1pt min.). @ -yes negative for acute disease CT interpreted by me (1pt min.). @ -no U/S interpreted by me (1pt. min.). @ -no What testing was considered but not performed or refused? (CT, X-rays, U/S, labs)? Why? @ -none What meds were considered but not given or refused? Why? @ -none Did you discuss the management of the patient with other professionals (professionals i.e. , PA, SHAREPOINT MANAGER, lab, RT, psych nurse, social services director, commercial sales manager, teacher, bank operations officer, case mgr)? Give summary @ -no Was smoking cessation discussed for >3mins.? @ -no Was critical care preformed (if so, how long)? @ -yes31 Were there social determinants of health that impacted care today? How? (Homelessness, low income, unemployed, alcoholism, drug addiction, t ransportation, low edu. Level, literacy, decrease access to med. care, alf, rehab)? @ -none Was there de-escalation of care discussed even if they declined (Discuss DNR or withdrawal of care, Hospice)? DNR status @ -no What co-morbidities impacted this encounter? (DM, HTN, Smoking, COPD, CAD, Cancer, CVA, ARF, Chemo, Hep., AIDS, mental health diagnosis, sleep apnea, morbid obesity)? @ -none Was patient admitted / discharged? Hospital course, mention meds given and route, prescriptions, significant lab abnormalities, going to OR and other pertinent info. @ -63 male with recent MI63 male to ER with recent history of stent placement coming in for chest pain today atypical chest pain with diaphoresis and patient did have an unresponsive event here in the ER could have been a vasovagal event although patient was unresponsive for some time and believed to be asystole during this event. Patient himself still feels weak terrible and will admit for cardiology evaluation Admitted Undiagnosed new problem with uncertain prognosis? @ -no Drug Therapy requiring intensive monitoring for toxicity (Heparin, Nitro, Insulin, Cardizem)? @ -no Were any procedures done? @ -no Diagnosis/symptom? @ -Syncopal event unresponsive chest pain Acute, or Chronic, or Acute on Chronic? @ -Acute Uncomplicated (without systemic symptoms) or Complicated (systemic symptoms)? @ -Complicated Side effects of treatment? @ -no Exacerbation, Progression, or Severe Exacerbation? @ -exacerbation Poses a threat to life or bodily function? How? (Chest pain, [place], [place], pneumonia, PE, COPD, DKA, ARF, appy, cholecystitis, CVA, Diverticulitis, Homicidal, Suicidal, threat to staff... and all critical care pts) @ -yes syncopal event asystole Reevaluation #5: Differential Chest Pain: Stable Angina, Unstable Angina, STEMI, NSTEMI Aortic Dissection, Pneumothorax, Musculoskeletal, Esophageal Spasm GERD, Cholecystitis, Pancreatitis, Zoster, this is not meant to be an all-inclusive list. - Consultations Consultation #1: Spoke with cardiology who will take this patient to the catheterization lab Consultation #2: Spoke with admitting physicians who agreed to admit this patient Chest Pain MDM - MDM 63 male to ER with recent history of stent placement coming in for chest pain today atypical chest pain with diaphoresis and patient did have an unresponsive event here in the ER could have been a vasovagal event although patient was unresponsive for some time and believed to be asystole during this event. Patient himself still feels weak terrible and will admit for cardiology evaluation Critical Care Time Critical Care Time: Yes Total Critical Care Time: 31 Disposition Clinical Impression: Atypical chest pain, Chest pain, Syncope, Asystole Disposition: ADMITTED IP TO THIS [facility] Condition: Good Is patient prescribed a controlled substance at d/c from ED?: No Time of Disposition: 16:00
--- NOTE | 2023-09-01 14:33 | XR ---
EXAMINATION TYPE: XR chest 1V portable DATE OF EXAM: 09/01/2023 2:20 PM CLINICAL INDICATION:Male, 63 years old with history of chest pain; [facility] COMPARISON: Chest radiographs from 07/30/2023 TECHNIQUE: XR chest 1V portable Frontal view of the chest. FINDINGS: Lungs/Pleura: There is no evidence of pleural effusion, focal consolidation, or pneumothorax. Pulmonary vascularity: Unremarkable. Heart/mediastinum: Cardiomediastinal silhouette is unremarkable. Musculoskeletal: No acute osseous pathology. IMPRESSION: No acute cardiopulmonary disease/process.
[2023-09-01] MEDS: DOPamine DRIP 800 MG in DEXTROSE/WATER 1 250ML.BAG IV ONE (14:48)
[2023-09-01] MEDS: SODIUM CHLORIDE 0.9% 1,000 ML IV STA (14:52)
[2023-09-01 15:07] LABS: Basophils # (A) 0.1 k/uL (0-0.2); Basophils % (A) 1 %; Eosinophils # (A) 0.2 k/uL (0-0.7); Eosinophils % (A) 2 %; HCT 52.1 % (39.0-53.0); HGB 17.4 gm/dL (13.0-17.5); Lymphocytes # (A) 1.3 k/uL (1.0-4.8); Lymphocytes % (A) 17 %; MCH 32.8 pg (25.0-35.0); MCHC 33.4 g/dL (31.0-37.0); MCV 98.1 fL (80.0-100.0); Mean Platelet Volume 10.2; Monocytes # (A) 0.5 k/uL (0-1.0); Monocytes % (A) 6 %; Neutrophils # (A) 5.8 k/uL (1.3-7.7); Neutrophils % (A) 74 %; Platelet Count 149 k/uL (150-450); RBC 5.31 m/uL (4.30-5.90); RDW 12.2 % (11.5-15.5); WBC 7.9 k/uL (3.8-10.6)
[2023-09-01 15:21] LABS: ALT 39 U/L (4-49); African American GFR (CKD) 69 (>60 ml/min/1.73 sqM); Albumin 5.4 g/dL (3.5-5.0); Anion Gap 11 mmol/L; Blood Urea Nitrogen 36 mg/dL (9-20); Calcium 10.5 mg/dL (8.4-10.2); Carbon Dioxide 24 mmol/L (22-30); Chloride 103 mmol/L (98-107); Glucose 179 mg/dL (74-99); Lipase 201 U/L (23-300); Non-African American GFR(CKD) 60 (>60 ml/min/1.73 sqM); Sodium 138 mmol/L (137-145)
[2023-09-01 15:23] LABS: AST 49 U/L (17-59); Alkaline Phosphatase 37 U/L (38-126); Magnesium 2.4 mg/dL (1.6-2.3); Potassium 5.5 mmol/L (3.5-5.1)
[2023-09-01 15:28] LABS: NT-Pro-B-Type Natriuretic Pept 36 pg/mL
--- NOTE | 2023-09-01 15:35 | CT ---
EXAMINATION TYPE: CT brain wo con DATE OF EXAM: 09/01/2023 COMPARISON: 02/04/2010 HISTORY: SMITH. CT DLP: 1125.[address] of the brain was performed. The ventricles, basal cisterns and sulci overlying the cerebral convexities demonstrate mild enlargem ent. There is no evidence for intracranial hemorrhage or sulcal effacement. There is decreased attenuation about the periventricular white matter and deep white matter of both c erebral hemispheres, compatible with chronic small vessel ischemia. Differential diagnosis does inclu de demyelination. No mass effects are seen.No midline shift. Osseous calvarium is intact. If symptoms persist consider MRI. IMPRESSION: 1. Age related atrophic and chronic small vessel ischemic change without acute intracranial process s een at this time.
[2023-09-01] MEDS ORDERED: NALOXONE 0.4 MG/ML 1 ML VIAL IV PRN (16:02)
[2023-09-01] MEDS: SODIUM CHLORIDE 0.9% 500 ML 500 ML IV STA (16:03)
[2023-09-01] MEDS ORDERED: VERAPAMIL 2.5 MG/ML 2 ML AMP ONE (16:54)
[2023-09-01] MEDS ORDERED: HEPARIN SODIUM,PORCINE 30 ML 30 ML ONE (16:54)
[2023-09-01] MEDS ORDERED: LIDOCAINE 1% INJ 10MG/ML (20 ML MDV) ONE (16:54)
[2023-09-01 17:02] LABS: ALT 36 U/L (4-49); AST 52 U/L (17-59); African American GFR (CKD) 77 (>60 ml/min/1.73 sqM); Albumin 5.1 g/dL (3.5-5.0); Alkaline Phosphatase 30 U/L (38-126); Anion Gap 10 mmol/L; Blood Urea Nitrogen 37 mg/dL (9-20); Calcium 9.8 mg/dL (8.4-10.2); Carbon Dioxide 23 mmol/L (22-30); Chloride 106 mmol/L (98-107); Glucose 167 mg/dL (74-99); Non-African American GFR(CKD) 66 (>60 ml/min/1.73 sqM); Sodium 139 mmol/L (137-145); Total Bilirubin 1.3 mg/dL (0.2-1.3); Total Protein 7.4 g/dL (6.3-8.2)
[2023-09-01] MEDS ORDERED: fentaNYL (PF) 50 MCG/ML 2 ML AMP ONE (17:14)
[2023-09-01] MEDS: MIDAZOLAM 2 MG/2 ML VIAL IVP ONE (17:15)
[2023-09-01] MEDS: fentaNYL (PF) 50 MCG/ML 2 ML AMP IVP ONE (17:15)
[2023-09-01] MEDS ORDERED: HEPARIN SODIUM 1,000 UN/ML (10ML VL) ONE (17:17)
[2023-09-01] MEDS: LIDOCAINE 1% INJ 10MG/ML (20 ML MDV) SQ ONE (17:20)
[2023-09-01] MEDS: VERAPAMIL SYRINGE (5 MG/10 ML) INTRAARTER ONE (17:24)
[2023-09-01 17:27] LABS: Potassium 5.7 mmol/L (3.5-5.1)
[2023-09-01] MEDS: SODIUM CHLORIDE 0.9% 1,000 ML IV ONE (17:50)
[2023-09-01] MEDS: IOPAMIDOL-370 100ML BTL INJ ONE ×2 (18:01)
[2023-09-01] MEDS ORDERED: RX INFO: IV CONTRAST WAS GIVEN 1 EACH MISC MISCELLANE PRN (18:05)
[2023-09-01] MEDS: SODIUM CHLORIDE 0.9% 1,000 ML IV SCH (18:54)
[2023-09-01] MEDS: SODIUM POLYSTYRENE SULFONATE 15 GM/60 ML BOTTLE PO STA (18:57)
[2023-09-01] MEDS ORDERED: ETODOLAC 200 MG CAPSULE PO PRN (19:32)
[2023-09-01] MEDS ORDERED: methocarbamoL 500 MG TAB PO PRN (19:32)
[2023-09-01] MEDS ORDERED: NON FORMULARY DRUG (Cetirizine Hcl [Zyrtec] 10 MG Tablet) PO PRN (19:32)
[2023-09-01] MEDS ORDERED: traMADol 50 MG TAB PO PRN (19:32)
[2023-09-01] MEDS: ACETAMINOPHEN TAB 325 MG TAB PO PRN (19:39)
[2023-09-01 20:06] LABS: Glucose,Whole Blood 158 mg/dL (70-110)
[2023-09-01] MEDS: ATORVASTATIN 40 MG TAB PO SCH (20:12)
[2023-09-01] MEDS: INSULIN ASPART (NovoLOG) 100 UNIT/ML VIAL SQ SCH (20:12)
--- NOTE | 2023-09-01 20:43 | CONS ---
CONSULTATION CHIEF COMPLAINT: Chest pain. HISTORY OF PRESENT ILLNESS: Manuel is a 63-year-old gentleman with history of coronary artery disease, status post angioplasty of mid right coronary artery; hypertension; dyslipidemia; non-insulin- dependent diabetes, who presented to hospital with chest pain. Chest discomfort has been going on for the last several days, was particularly worse over the last 1 day. Hence, he comes in. While in the ER, he apparently had a 30-second pause and had brief loss of consciousness. After that, he regained spontaneously. We started him on dopamine and he has been doing well since. Chest discomfort has improved. His serum potassium is slightly elevated and at the time of my evaluation in the manager cath lab, he is asymptomatic, hemodynamically stable and in no apparent distress. PAST MEDICAL HISTORY: Significant for coronary artery disease, status post angioplasty; hypertension; diabetes; dyslipidemia. MEDICATIONS: As charted. ALLERGIES: As charted. FAMILY HISTORY: Significant for premature coronary artery disease. SOCIAL HISTORY: Negative for smoking, EtOH abuse, or drug abuse. REVIEW OF SYSTEMS: 14 out of 14 review of systems has been performed. Pertinents are as documented. PHYSICAL EXAMINATION: GENERAL: Comfortable at rest. VITAL SIGNS: Stable. NECK: There is no jugular venous distention. Carotid upstroke is normal. There is no bruit. CHEST EXAM: Reveals good air entry bilaterally. HEART: Reveals first and second heart sounds. No gallop. No murmur. No rub. ABDOMEN: Soft, nontender. EXTREMITIES: Did not reveal any edema. Peripheral pulses are felt. EKG shows sinus rhythm without any acute ST-T wave changes. ASSESSMENT AND PLAN: 1. Syncope secondary to sinus pause. 2. Unstable angina in a patient with known CAD, status post prior angioplasty of right coronary artery. PLAN: I will perform cardiac catheterization on him. We will continue the dopamine that he is on for now. MMODL / IJN: [id number] /
--- NOTE | 2023-09-01 20:57 | CC ---
CARDIAC CATHETERIZATION REPORT INDICATION: Non ST-segment elevation IA. This is a 63-year-old gentleman with history of coronary artery disease, status post prior angioplasty of right coronary artery, who presented to hospital with symptoms of precordial chest pain. His EKG did not reveal any ischemic changes. First set of troponin was slightly elevated. While he was in the ER, he had a 30-second pause. He was initially treated with dopamine. Subsequently, it had been stopped. I decided to proceed with cardiac catheterization to rule out significant obstructive CAD. I discussed risks, benefits, and alternatives in the asset availability leader. The patient understood and agreed to proceed with the procedure. PROCEDURE NOTE: After obtaining informed consent, left heart catheterization and coronary angiogram were performed via right radial artery using standard Halie catheters. The patient tolerated the procedure well without any obvious immediate complications. The right radial artery access was obtained using Seldinger technique, 6-Thai sheath was placed. Catheters and wires were floated into the ascending aorta under fluoroscopic guidance. The patient received verapamil per protocol and had already received heparin in the ER. We did not give him any additional heparin. A TR band will be used for hemostasis. Received moderate conscious sedation. Total sedation time was 25 minutes. HEMODYNAMICS: 1. Left ventricular end-diastolic pressure is 8 mm. There is no significant gradient across the aortic valve. 2. Left ventriculogram: Left ventriculogram is not performed. 3. Angiographic data: a.Left main coronary artery: Left main coronary artery is a normal-sized vessel and is free of stenosis. Divides into left anterior descending coronary artery and circumflex coronary artery. LAD and its branches are free of significant stenosis. Circumflex coronary artery shows a 40% stenosis. b.Right coronary artery is a large dominant vessel where the previously stented segment in the mid RCA appears patent. There is mild disease proximal to the stent. CONCLUSION: Mild nonobstructive disease involving right coronary artery and mild to moderate disease involving circumflex coronary artery that seems unchanged. PLAN: I reviewed angiographic data with Dr. Lind, the on-call business administration professor. The patient does not have any significant obstructive CAD that needs intervention at this stage. We will admit the patient to selective care and we will hold the beta blockers and watch him overnight and see how he does. MMODL / IJN: [id number] /
[2023-09-01] MEDS: SODIUM ZIRCONIUM CYCLOSILICATE 10 GM PACKET PO ONE (21:29)
[2023-09-01 21:34] LABS: African American GFR (CKD) 85 (>60 ml/min/1.73 sqM); Anion Gap 13 mmol/L; Blood Urea Nitrogen 33 mg/dL (9-20); Calcium 9.7 mg/dL (8.4-10.2); Carbon Dioxide 21 mmol/L (22-30); Chloride 105 mmol/L (98-107); Glucose 155 mg/dL (74-99); Non-African American GFR(CKD) 73 (>60 ml/min/1.73 sqM); Potassium 4.2 mmol/L (3.5-5.1); Sodium 139 mmol/L (137-145)
[2023-09-02 06:00] LABS: Glucose,Whole Blood 105 mg/dL (70-110)
[2023-09-02 07:50] LABS: Basophils % (A) 1 %; Eosinophils # (A) 0.1 k/uL (0-0.7); Eosinophils % (A) 2 %; HCT 46.7 % (39.0-53.0); HGB 15.6 gm/dL (13.0-17.5); Lymphocytes # (A) 1.2 k/uL (1.0-4.8); Lymphocytes % (A) 20 %; MCHC 33.4 g/dL (31.0-37.0); Mean Platelet Volume 10.1; Monocytes # (A) 0.4 k/uL (0-1.0); Monocytes % (A) 7 %; Neutrophils % (A) 68 %; Platelet Count 121 k/uL (150-450); RBC 4.71 m/uL (4.30-5.90); RDW 12.3 % (11.5-15.5); WBC 5.8 k/uL (3.8-10.6)
[2023-09-02 08:03] LABS: ALT 29 U/L (4-49); AST 33 U/L (17-59); African American GFR (CKD) >90 (>60 ml/min/1.73 sqM); Albumin 4.4 g/dL (3.5-5.0); Alkaline Phosphatase 38 U/L (38-126); Anion Gap 11 mmol/L; Blood Urea Nitrogen 33 mg/dL (9-20); Carbon Dioxide 20 mmol/L (22-30); Chloride 107 mmol/L (98-107); Glucose 107 mg/dL (74-99); Magnesium 2.3 mg/dL (1.6-2.3); Non-African American GFR(CKD) 81 (>60 ml/min/1.73 sqM); Phosphorus 4.2 mg/dL (2.5-4.5); Potassium 4.2 mmol/L (3.5-5.1); Sodium 138 mmol/L (137-145); Total Protein 6.4 g/dL (6.3-8.2)
[2023-09-02] MEDS: FENOFIBRATE 160 MG TAB PO SCH (09:52)
[2023-09-02] MEDS: LORATADINE 10 MG TAB PO SCH (09:52)
[2023-09-02] MEDS: PRASUGREL 10 MG TAB PO SCH (09:52)
[2023-09-02] MEDS: lisinopriL 10 MG TAB PO SCH (09:52)
[2023-09-02] MEDS: amLODIPine 10 MG TAB PO SCH (09:52)
[2023-09-02] MEDS: DAPAGLIFLOZIN PROPANEDIOL 10 MG TABLET PO SCH (09:52)
[2023-09-02] MEDS: ASPIRIN 81 MG PO SCH (09:52)
--- NOTE | 2023-09-02 10:42 | P.PN ---
Subjective HISTORY OF PRESENT ILLNESS: Patient is status post cardiac catheterization with Dr. Curtis revealing mild nonobstructive disease involving the RCA and mild to moderate disease involving the circumflex. Patient examined this morning the bedside. Patient currently denies chest pain or pressure. He denies shortness of breath. Telemetry reviewed with no episodes of bradycardia or sinus pauses. The patient did have a reported 30 second episode of asystole per the ER. However there are no telemetry strips available for review. He was started on dopamine which has since been discontinued yesterday. PHYSICAL EXAM: VITAL SIGNS: Reviewed. GENERAL: Well-developed in no acute distress. NECK: Supple. No JVD or thyromegaly LUNGS: Respirations even and unlabored. Lungs essentially clear to auscultation bilaterally. HEART: Regular rate and rhythm. S1 and S2 heard. EXTREMITIES: Normal range of motion. No clubbing or cyanosis. Peripheral pulses intact. No lower extremity edema ASSESSMENT: Reported 30 second duration of asystole in the ER, no telemetry strips available for review Status postcardiac catheterization revealing mild nonobstructive disease involving the RCA and mild to moderate disease involving the circumflex, mid RCA stent patent History of CAD with previous stenting of the RCA Hypertension Hyperlipidemia Diabetes PLAN: Obtain 2D echo to assess cardiac structure and function Check TSH Continue current cardiac medications Avoid AV marisela blocking agents Continue telemetry monitoring The patient did have a reported 30 second episode of asystole per the ER. However there are no telemetry strips available for review. Dr. Russell, mica patcher, to evaluate patient tomorrow. Consider event monitor versus loop recorder Further recommendations pending patient course Patient to follow-up with Dr. Bear postdischarge Nurse practitioner note has been reviewed by physician. Signing provider agrees with the documented findings, assessment, and plan of care documented by HR ADMINISTRATOR as a scribe. Objective - Vital Signs Vital signs: Vital Signs Temp 97.9 F 09/02/23 07:32 Pulse 70 09/02/23 07:32 Resp 16 09/02/23 07:32 BP 137/77 09/02/23 09:45 Pulse Ox 98 09/02/23 07:32 FiO2 Intake & Output 09/01/23 09/02/23 09/02/23 18:59 06:59 18:59 Intake Total 101.521 138 Balance 101.521 138 Weight 83.915 kg 82.3 kg Intake: IV 100 20 Invasive Line 1 10 Invasive Line 2 10 Intake, IV Titration 1.521 Amount DOPamine DRIP 800 mg In 1.521 Dextrose/Water 1 250ml. bag @ 1 MCG/KG/MIN 1.573 mls/hr IV .Q24H ONE Rx#: [id number] Oral 118 Other: # Voids 1 # Bowel Movements 1 - Labs CBC & Chem 7: 09/02/23 06:32 09/02/23 06:32 Labs: Abnormal Lab Results - Last 24 Hours (Table) 09/01/23 09/01/23 09/01/23 Range/Units 14:45 14:45 16:34 Plt Count 149 L (150-450) k/uL Potassium 5.5 H 5.7 H (3.5-5.1) mmol/L Carbon Dioxide (22-30) mmol/L BUN 36 H 37 H (9-20) mg/dL Creatinine 1.28 H (0.66-1.25) mg/dL Glucose 179 H 167 H (74-99) mg/dL POC Glucose (mg/dL) (70-110) mg/dL Calcium 10.5 H (8.4-10.2) mg/dL Magnesium 2.4 H (1.6-2.3) mg/dL Alkaline Phosphatase 37 L 30 L (38-126) U/L Albumin 5.4 H 5.1 H (3.5-5.0) g/dL 09/01/23 09/01/23 09/02/23 Range/Units 20:02 20:34 06:32 Plt Count (150-450) k/uL Potassium (3.5-5.1) mmol/L Carbon Dioxide 21 L 20 L (22-30) mmol/L BUN 33 H 33 H (9-20) mg/dL Creatinine (0.66-1.25) mg/dL Glucose 155 H 107 H (74-99) mg/dL POC Glucose (mg/dL) 158 H (70-110) mg/dL Calcium (8.4-10.2) mg/dL Magnesium (1.6-2.3) mg/dL Alkaline Phosphatase (38-126) U/L Albumin (3.5-5.0) g/dL 09/02/23 Range/Units 06:32 Plt Count 121 L (150-450) k/uL Potassium (3.5-5.1) mmol/L Carbon Dioxide (22-30) mmol/L BUN (9-20) mg/dL Creatinine (0.66-1.25) mg/dL Glucose (74-99) mg/dL POC Glucose (mg/dL) (70-110) mg/dL Calcium (8.4-10.2) mg/dL Magnesium (1.6-2.3) mg/dL Alkaline Phosphatase (38-126) U/L Albumin (3.5-5.0) g/dL
--- NOTE | 2023-09-02 11:22 | CA ---
Transthoracic Echo Report Name: Manuel Cabrera Age: 63 Gender: M : 1960 Exam Date: 09/02/2023 08:32 Exam Location: [place] [facility] Ht (in): 73 Wt (lb): 181 Ordering Physician: Annabella English Attending/Referring Phys: [id number], [place] Professor Of Surgery Lian Gross RDCS Procedure CPT: Indications: LV function Cardiac Hx: Technical Quality: Good Contrast 1: Total Dose (mL): Contrast 2: Total Dose (mL): MEASUREMENTS (Male / Female) Normal Values 2D ECHO LV Diastolic Diameter PLAX 4.2 cm 4.2 - 5.9 / 3.9 - 5.3 cm LV Systolic Diameter PLAX 2.8 cm IVS Diastolic Thickness 1.2 cm 0.6 - 1.0 / 0.6 - 0.9 cm LVPW Diastolic Thickness 1.3 cm 0.6 - 1.0 / 0.6 - 0.9 cm LV Relative Wall Thickness 0.6 RV Internal Dim ED PLAX 2.4 cm LA Systolic Diameter LX 3.7 cm 3.0 - 4.0 / 2.7 - 3.8 cm LV Diastolic Volume MOD BP 71.6 cm??? 67 - 155 / 56 - 104 cm??? LV Systolic Volume MOD BP 21.6 cm??? 22 - 58 / 19 - 49 cm??? LV Ejection Fraction MOD BP 69.9 % >= 55 % LV Cardiac Index MOD BP 1968.6 cm???/min???m??? LV Diastolic Volume MOD 4C 71.6 cm??? LV Systolic Volume MOD 4C 19.9 cm??? LV Ejection Fraction MOD 4C 72.3 % LV Cardiac Index MOD 4C 2035.0 cm???/min???m??? LV Diastolic Length 4C 8.2 cm LV Systolic Length 4C 6.4 cm LV Diastolic Volume MOD 2C 69.8 cm??? LV Systolic Volume MOD 2C 22.1 cm??? LV Ejection Fraction MOD 2C 68.3 % LV Cardiac Index MOD 2C 1877.9 cm???/min???m??? LV Diastolic Length 2C 8.5 cm LV Systolic Length 2C 6.8 cm LA Volume 44.6 cm??? 18 - 58 / 22 - 52 cm??? LA Volume Index 21.7 cm???/m??? 16 - 28 cm???/m??? Ascending Aorta Diameter 3.2 cm M-MODE Aortic Root Diameter MM 3.1 cm LA Systolic Diameter MM 3.5 cm LA Ao Ratio MM 1.1 AV Cusp Separation MM 1.9 cm DOPPLER AV Peak Velocity 163.4 cm/s AV Peak Gradient 10.7 mmHg MV Area PHT 3.3 cm??? Mitral E Point Velocity 76.6 cm/s Mitral A Point Velocity 84.2 cm/s Mitral E to A Ratio 0.9 MV Deceleration Time 230.5 ms TR Peak Velocity 186.9 cm/s TR Peak Gradient 14.0 mmHg Right Ventricular Systolic Press 19.0 mmHg FINDINGS Left Ventricle Left ventricular ejection fraction is estimated at 60-65 %. Mildly increased septal wall thickness. No obvious regional wall motion abnormalities. Left ventricular cavity size normal. Right Ventricle Normal right ventricular size and function. Right ventricular systolic pressure within normal limits. Right Atrium Normal right atrial size. Left Atrium Normal left atrial size. Mitral Valve Structurally normal mitral valve. Trace to mild mitral regurgitation. No mitral stenosis. Aortic Valve Trileaflet aortic valve. No aortic valve stenosis or regurgitation. Tricuspid Valve Structurally normal tricuspid valve. No tricuspid stenosis. Trace tricuspid regurgitation. Pulmonic Valve Structurally normal pulmonic valve. No pulmonic regurgitation. Trace pulmonic regurgitation. Pericardium No pericardial or pleural effusion. Aorta Normal size aortic root and proximal ascending aorta. CONCLUSIONS Normal LV systolic function Previewed by: Dr. Gus Curtis MD (Electronically Signed) Final Date: 02 September 2023 11:21
[2023-09-02 11:38] LABS: Glucose,Whole Blood 212 mg/dL (70-110)
--- NOTE | 2023-09-02 12:37 | P.CNPUL ---
History of Present Illness Consult date: 09/02/23 Requesting physician: Laura Bateman Reason for consult: other (Asystole) Chief complaint: Chest pain and lightheadedness History of present illness: This is a 3-year-old white male with history of coronary artery disease, status post angioplasty of RCA back about a month ago by Dr. Bear. Known history of hypertension, [id number]-nldzwzoox diabetes, patient was experiencing yesterday intermittent episodes of chest pains, and this has been noted for the last few days prior to admission. Patient initially felt that this may be indigestion. However his chest pain responded after he took 2 sublingual nitroglycerin. Then he became more concerned that his pain is most likely cardiac rather than GI in nature. Patient came into the ER, and he was having workup including blood draws. Apparently there was some difficulty getting IV access or drawing blood from the patient, and on his second poke patient felt lightheaded and he knew that he was going to pass out, patient passed out for about 30 seconds. Supposedly the patient went pulseless however the patient tells me that he had s imilar episodes in the past after blood draws related to vasovagal symptoms. But the last episode he had was over 40 years ago. Patient was seen by cardiology and he underwent cardiac catheterization and there was no evidence of any significant coronary artery disease to correlate with his symptoms. Hence cardiology recommended that the patient go off beta-blockers for now, and to continue to monitor. During my evaluation the patient was asymptomatic. No chest pain no cough no wheezing no shortness of breath no nausea no vomiting no abdominal pain Review of Systems REVIEW OF SYSTEMS: CONSTITUTIONAL: Negative. EYES: Negative. ENT: Negative. CARDIAC: As noted in HPI PULMONARY: No shortness of breath no cough no wheezing and no chest pain at present GI: Negative. GENITOURINARY: Negative. MUSCULOSKELETAL: Negative. SKIN: Negative. NEUROPSYCH: Negative. ENDOCRINE: Negative. HEMATOLOGIC: Negative. Past Medical History Past Medical History: Coronary Artery Disease (CAD), Diabetes Mellitus, Hyperlipidemia, Hypertension, Myocardial Infarction (NH), Sleep Apnea/CPAP/BIPAP Additional Past Medical History / Comment(s): CURRENTLY DIET CONTROL DIABETES. STATES STOPPED ALL DIABETIC MEDS ABOUT 2 MONTHS AGO BECUASE NOTHING WAS WORKING. STATES THAT [facility] STAYS ABOUT 180. fatty liver, neuropathy Last Myocardial Infarction Date:: 07/31/23 History of Any Multi-Drug Resistant Organisms: None Reported Past Surgical History: Heart Catheterization, Heart Catheterization With Stent, Orthopedic Surgery Additional Past Surgical History / Comment(s): LT ELBOW DENERVATION. multiple bACK INJECTIONS. COLONOSOCPY, right and left shoulder rotator cuff repairs Past Anesthesia/Blood Transfusion Reactions: Postoperative Nausea & Vomiting (PONV) Date of Last Stent Placement:: 07/31/23 Past Psychological History: No Psychological Hx Reported Smoking Status: Never smoker Past Alcohol Use History: Rare Past Drug Use History: None Reported - Past Family History Father Family Medical History: Cancer Additional Family Medical History / Comment(s): PROSTATE Medications and Allergies Home Medications Medication Instructions Recorded Confirmed Type Diclofenac Sodium [Voltaren] 50 mg PO TID PRN 11/23/20 09/01/23 History methocarbamoL 500 mg PO DIRECTED PRN 11/23/20 09/01/23 History traMADol HCL [Ultram] 50 mg PO TID PRN 11/23/20 09/01/23 History Allerplex 1 dose PO Q4H PRN 07/30/23 09/01/23 History Antronex 1 dose PO Q4H PRN 07/30/23 09/01/23 History Cetirizine HCl [Zyrtec] 10 mg PO DAILY 07/30/23 09/01/23 History Cetirizine HCl [Zyrtec] 10 mg PO HS PRN 07/30/23 09/01/23 History Dulaglutide [Trulicity] 0.75 mg SQ TU 07/30/23 09/01/23 History Empagliflozin [Jardiance] 25 mg PO DAILY 07/30/23 09/01/23 History Fenofibrate Nanocrystallized 145 mg PO DAILY 07/30/23 09/01/23 History [Fenofibrate] lisinopriL [Zestril] 10 mg PO DAILY 07/30/23 09/01/23 History Acetaminophen Tab [Tylenol] 650 mg PO Q6HR PRN tab 08/01/23 09/01/23 Rx Aspirin 81 mg PO DAILY #90 tab 08/01/23 09/01/23 Rx Atorvastatin Calcium [Lipitor] 40 mg PO DAILY 90 Days #90 tab 08/01/23 09/01/23 Rx Metoprolol Succinate (ER) [Toprol 12.5 mg PO DAILY #180 tab 08/01/23 09/01/23 Rx XL] Nitroglycerin Sl Tabs [Nitrostat] 0.4 mg SUBLINGUAL Q5M PRN #100 tab 08/01/23 09/01/23 Rx Prasugrel [Effient] 10 mg PO DAILY #90 tab 08/01/23 09/01/23 Rx Allergies Allergy/AdvReac Type Severity Reaction Status Date / Time Sulfa (Sulfonamide Allergy Rash/Hives Verified 09/01/23 14:46 Antibiotics) Physical Exam Vitals: Vital Signs Temp Pulse Pulse Resp BP BP Pulse Ox 09/02/23 11:24 98.6 F 66 18 144/79 97 09/02/23 09:45 137/77 09/02/23 07:32 97.9 F 70 16 124/75 98 09/02/23 03:16 97.9 F 83 19 130/58 97 09/01/23 23:16 98.7 F 77 14 122/71 97 09/01/23 20:25 74 154/88 96 09/01/23 20:14 75 153/84 96 09/01/23 19:30 98.1 F 72 18 159/88 99 09/01/23 19:05 74 150/89 98 09/01/23 18:50 75 139/80 98 09/01/23 18:34 75 135/83 99 09/01/23 18:19 98.4 F 76 16 161/69 97 09/01/23 16:49 78 18 136/86 98 09/01/23 16:06 76 18 141/89 98 09/01/23 15:52 76 18 148/84 98 09/01/23 15:46 74 18 147/91 95 09/01/23 15:35 70 20 155/90 100 09/01/23 15:20 65 18 136/85 100 09/01/23 15:10 67 18 135/87 100 09/01/23 14:55 68 18 127/76 100 09/01/23 14:45 64 18 120/74 100 09/01/23 14:40 67 20 127/78 99 09/01/23 14:38 58 L 18 140/80 100 09/01/23 14:35 84/73 09/01/23 14:02 77 18 122/77 98 09/01/23 13:59 18 122/77 09/01/23 13:46 97.9 F 81 18 114/79 95 Intake and Output 09/01/23 09/02/23 09/02/23 22:59 06:59 14:59 Intake Total 101.521 138 Balance 101.521 138 Intake: IV 100 20 Invasive Line 1 10 Invasive Line 2 10 Intake, IV Titration 1.521 Amount DOPamine DRIP 800 mg In 1.521 Dextrose/Water 1 250ml. bag @ 1 MCG/KG/MIN 1.573 mls/hr IV .Q24H ONE Rx#: [id number] Oral 118 Other: # Voids 1 # Bowel Movements 1 Weight 83.915 kg 82.3 kg General: revealed a 63-year-old white male extremely pleasant in no distress Skin: Skin is warm and dry and no rashes or lesions are noted. Eye: Pupils are equal, round and reactive to light, extra-ocular movements are intact; there is normal conjunctiva bilaterally. Ears, nose, mouth and throat: There are moist mucous membranes and no oral lesions. Neck: The neck is supple, there is no tenderness or JVD. Cardiovascular: There is a regular rate and rhythm. No murmur, rub or gallop is appreciated. Respiratory: Clear throughout no crackles rhonchi or wheezes, symmetrical chest expansion Gastrointestinal: Soft, non-distended, non-tender abdomen without masses or organomegaly noted. There is no rebound or guarding present. Bowel sounds are unremarkable. Back: There is no tenderness to palpation in the midline. There is no obvious deformity. Musculoskeletal: Normal ROM, no tenderness, There is no pedal edema. There is no calf tenderness or swelling. No cords were appreciated. Neurological: CN II-XII intact, Cranial nerves III through XII are intact. There are no obvious motor or sensory deficits. Coordination appears grossly intact. Speech is normal. Psychiatric: Cooperative, appropriate mood & affect, normal judgment. Results - Laboratory Findings CBC and BMP: 09/02/23 06:32 09/02/23 06:32 PT/INR, D-dimer PT 11.0 sec (10.0-12.5) 09/01/23 14:45 INR 1.0 (<1.2) 09/01/23 14:45 D-Dimer 0.20 mg/L FEU (<0.60) 09/01/23 14:45 Abnormal lab findings: Abnormal Labs 09/01/23 09/01/23 09/01/23 14:45 14:45 16:34 Plt Count 149 L Potassium 5.5 H 5.7 H Carbon Dioxide BUN 36 H 37 H Creatinine 1.28 H Glucose 179 H 167 H POC Glucose (mg/dL) Calcium 10.5 H Magnesium 2.4 H Alkaline Phosphatase 37 L 30 L Albumin 5.4 H 5.1 H 09/01/23 09/01/23 09/02/23 20:02 20:34 06:32 Plt Count Potassium Carbon Dioxide 21 L 20 L BUN 33 H 33 H Creatinine Glucose 155 H 107 H POC Glucose (mg/dL) 158 H Calcium Magnesium Alkaline Phosphatase Albumin 09/02/23 09/02/23 06:32 11:36 Plt Count 121 L Potassium Carbon Dioxide BUN Creatinine Glucose POC Glucose (mg/dL) 212 H Calcium Magnesium Alkaline Phosphatase Albumin - Diagnostic Findings Chest x-ray: image reviewed (Chest x-ray showed no evidence of active cardi opulmonary disease) Assessment and Plan Assessment: Impression: Reported asystole however I believe based on the clinical symptoms that the patient has a vasovagal episode. History of underlying coronary artery disease and previous cardiac catheterization with stenting of RCA, this was done 1 month ago. Status post cardiac catheterization and no evidence of critical coronary artery disease on this cardiac catheterization done yesterday. Dyslipidemia Benign essential hypertension Type 2 diabetes Recommendation: Fully agree with the present treatment plan as per cardiology Continue to avoid marisela blocking agents Continue telemetry monitoring Reviewed the results of his cardiac catheterization Will follow as needed Time with Patient: Greater than 30
--- NOTE | 2023-09-02 13:39 | P.HPIM ---
History of Present Illness H&P Date: 09/02/23 History of present illness; patient 63-year-old gentleman with past medical his significant for coronary artery disease, hypertension, hyperlipidemia presented to ER because of chest pain. Patient stated that he was all right a week back when started experiencing chest pain that was central in location, over the last day pain worsened, was pressure-like, nonradiating, no aggravating or relieving factor associated chest pain. There was no complaint of shortness of breath. No complaint of palpitation. Patient denies any orthopnea or PND. Because of this chest pain, patient presented to the ER. While in the ER, patient had 30 second pause and lost consciousness. Initial lab work done in the ER showed WBC 7.9, hemoglobin 17.4, platelet count 149, sodium 138, potassium 5.5, BUN 36, creatinine 1.28, glucose 179, calcium 10.5, magnesium 2.4, alk phos 37, albumin 5.4 EKG done in the ER showed heart rate of 72 , no ST segment elevation or depression seen, no T-wave inversions seen. Chest x-ray done in the ER showed no acute cardiopulmonary process CT head done showed age-related atrophic and chronic small vessel ischemic changes without acute intracranial process. Patient was taken for emergent cardiac cath by cardiology and it showed mild nonobstructive disease involving the right coronary artery and mild to moderate disease involving circumflex coronary artery that seems unchanged Patient admitted to internal medicine service REVIEW OF SYSTEMS: CONSTITUTIONAL: No fever, no malaise, no fatigue. HEENT: No recent visual problems or hearing problems. Denied any sore throat. CARDIOVASCULAR: No chest pain, orthopnea, PND, no palpitations, no syncope. PULMONARY: No shortness of breath, no cough, no hemoptysis. GASTROINTESTINAL: No diarrhea, no nausea, no vomiting, no abdominal pain. NEUROLOGICAL: No headaches, no weakness, no numbness. HEMATOLOGICAL: Denies any bleeding or petechiae. GENITOURINARY: Denies any burning micturition, frequency, or urgency. MUSCULOSKELETAL/RHEUMATOLOGICAL: Denies any joint pain, swelling, or any muscle pain. ENDOCRINE: Denies any polyuria or polydipsia. The rest of the 14-point review of systems is negative. PHYSICAL EXAMINATION: GENERAL: The patient is alert and oriented x3, not in any acute distress. Well developed, well nourished. HEENT: Pupils are round and equally reacting to light. EOMI. No scleral icterus. No conjunctival pallor. Normocephalic, atraumatic. No pharyngeal erythema. No thyromegaly. CARDIOVASCULAR: S1 and S2 present. No murmurs, rubs, or gallops. PULMONARY: Chest is clear to auscultation, no wheezing or crackles. ABDOMEN: Soft, nontender, nondistended, normoactive bowel sounds. No palpable organomegaly. MUSCULOSKELETAL: No joint swelling or deformity. EXTREMITIES: No cyanosis, clubbing, or pedal edema. NEUROLOGICAL: Gross neurological examination did not reveal any focal deficits. SKIN: No rashes. Assessment and plan Unstable angina Syncope secondary to sinus pauses Hyperkalemia Acute kidney injury Hypercalcemia History of coronary disease s/p angioplasty of mid RCA Hypertension Dyslipidemia Avn-ovzmcyx-muchixofk diabetes mellitus Monitor vital signs Monitor CBC Monitor CMP Continue telemetry monitoring S/p cardiac cath mild nonobstructive disease involving the right coronary artery and mild to moderate disease involving circumflex coronary artery that seems unchanged 2D echo ordered ultrasound carotids ordered Resume aspirin, Effient, Lipitor Monitor blood sugar levels, start sliding scale insulin Cardiology consulted Labs and medication were reviewed.. Continue same treatment. Continue with symptomatic treatment. Resume home medication. Monitor labs and vitals. DVT and GI prophylaxis. Further recommendations as per clinical course of the patient Dictation was produced using [employer] dictation software. please excuse any grammatical, word or spelling errors. Past Medical History Past Medical History: Coronary Artery Disease (CAD), Diabetes Mellitus, Hyperlipidemia, Hypertension, Myocardial Infarction ([place]), Sleep Apnea/CPAP/BIPAP Additional Past Medical History / Comment(s): CURRENTLY DIET CONTROL DIABETES. STATES STOPPED ALL DIABETIC MEDS ABOUT 2 MONTHS AGO BECUASE NOTHING WAS WORKING. STATES THAT CBG STAYS ABOUT 180. fatty liver, neuropathy Last Myocardial Infarction Date:: 07/31/23 History of Any Multi-Drug Resistant Organisms: None Reported Past Surgical History: Heart Catheterization, Heart Catheterization With Stent, Orthopedic Surgery Additional Past Surgical History / Comment(s): LT ELBOW DENERVATION. multiple bACK INJECTIONS. COLONOSOCPY, right and left shoulder rotator cuff repairs Past Anesthesia/Blood Transfusion Reactions: Postoperative Nausea & Vomiting (PONV) Date of Last Stent Placement:: 07/31/23 Past Psychological History: No Psychological Hx Reported Smoking Status: Never smoker Past Alcohol Use History: Rare Past Drug Use History: None Reported - Past Family History Father Family Medical History: Cancer Additional Family Medical History / Comment(s): PROSTATE Medications and Allergies Home Medications Medication Instructions Recorded Confirmed Type Diclofenac Sodium [Voltaren] 50 mg PO TID PRN 11/23/20 09/01/23 History methocarbamoL 500 mg PO DIRECTED PRN 11/23/20 09/01/23 History traMADol HCL [Ultram] 50 mg PO TID PRN 11/23/20 09/01/23 History Allerplex 1 dose PO Q4H PRN 07/30/23 09/01/23 History Antronex 1 dose PO Q4H PRN 07/30/23 09/01/23 History Cetirizine HCl [Zyrtec] 10 mg PO DAILY 07/30/23 09/01/23 History Cetirizine HCl [Zyrtec] 10 mg PO HS PRN 07/30/23 09/01/23 History Dulaglutide [Trulicity] 0.75 mg SQ TU 07/30/23 09/01/23 History Empagliflozin [Jardiance] 25 mg PO DAILY 07/30/23 09/01/23 History Fenofibrate Nanocrystallized 145 mg PO DAILY 07/30/23 09/01/23 History [Fenofibrate] lisinopriL [Zestril] 10 mg PO DAILY 07/30/23 09/01/23 History Acetaminophen Tab [Tylenol] 650 mg PO Q6HR PRN tab 08/01/23 09/01/23 Rx Aspirin 81 mg PO DAILY #90 tab 08/01/23 09/01/23 Rx Atorvastatin Calcium [Lipitor] 40 mg PO DAILY 90 Days #90 tab 08/01/23 09/01/23 Rx Metoprolol Succinate (ER) [Toprol 12.5 mg PO DAILY #180 tab 08/01/23 09/01/23 Rx XL] Nitroglycerin Sl Tabs [Nitrostat] 0.4 mg SUBLINGUAL Q5M PRN #100 tab 08/01/23 09/01/23 Rx Prasugrel [Effient] 10 mg PO DAILY #90 tab 08/01/23 09/01/23 Rx Allergies Allergy/AdvReac Type Severity Reaction Status Date / Time Sulfa (Sulfonamide Allergy Rash/Hives Verified 09/01/23 14:46 Antibiotics) Physical Exam Vitals: Vital Signs Temp Pulse Pulse Resp BP BP Pulse Ox 09/02/23 07:32 97.9 F 70 16 124/75 98 09/02/23 03:16 97.9 F 83 19 130/58 97 09/01/23 23:16 98.7 F 77 14 122/71 97 09/01/23 20:25 74 154/88 96 09/01/23 20:14 75 153/84 96 09/01/23 19:30 98.1 F 72 18 159/88 99 09/01/23 19:05 74 150/89 98 09/01/23 18:50 75 139/80 98 09/01/23 18:34 75 135/83 99 09/01/23 18:19 98.4 F 76 16 161/69 97 09/01/23 16:49 78 18 136/86 98 09/01/23 16:06 76 18 141/89 98 09/01/23 15:52 76 18 148/84 98 09/01/23 15:46 74 18 147/91 95 09/01/23 15:35 70 20 155/90 100 09/01/23 15:20 65 18 136/85 100 09/01/23 15:10 67 18 135/87 100 09/01/23 14:55 68 18 127/76 100 09/01/23 14:45 64 18 120/74 100 09/01/23 14:40 67 20 127/78 99 09/01/23 14:38 58 L 18 140/80 100 09/01/23 14:35 84/73 09/01/23 14:02 77 18 122/77 98 09/01/23 13:59 18 122/77 09/01/23 13:46 97.9 F 81 18 114/79 95 Intake and Output 09/01/23 09/02/23 09/02/23 22:59 06:59 14:59 Intake Total 101.521 138 Balance 101.521 138 Intake: IV 100 20 Invasive Line 1 10 Invasive Line 2 10 Intake, IV Titration 1.521 Amount DOPamine DRIP 800 mg In 1.521 Dextrose/Water 1 250ml. bag @ 1 MCG/KG/MIN 1.573 mls/hr IV .Q24H ONE Rx#: [id number] Oral 118 Other: Weight 83.915 kg 82.3 kg Results CBC & Chem 7: 09/02/23 06:32 09/02/23 06:32 Labs: Abnormal Lab Results - Last 24 Hours (Table) 09/01/23 09/01/23 09/01/23 Range/Units 14:45 14:45 16:34 Plt Count 149 L (150-450) k/uL Potassium 5.5 H 5.7 H (3.5-5.1) mmol/L Carbon Dioxide (22-30) mmol/L BUN 36 H 37 H (9-20) mg/dL Creatinine 1.28 H (0.66-1.25) mg/dL Glucose 179 H 167 H (74-99) mg/dL POC Glucose (mg/dL) (70-110) mg/dL Calcium 10.5 H (8.4-10.2) mg/dL Magnesium 2.4 H (1.6-2.3) mg/dL Alkaline Phosphatase 37 L 30 L (38-126) U/L Albumin 5.4 H 5.1 H (3.5-5.0) g/dL 09/01/23 09/01/23 09/02/23 Range/Units 20:02 20:34 06:32 Plt Count (150-450) k/uL Potassium (3.5-5.1) mmol/L Carbon Dioxide 21 L 20 L (22-30) mmol/L BUN 33 H 33 H (9-20) mg/dL Creatinine (0.66-1.25) mg/dL Glucose 155 H 107 H (74-99) mg/dL POC Glucose (mg/dL) 158 H (70-110) mg/dL Calcium (8.4-10.2) mg/dL Magnesium (1.6-2.3) mg/dL Alkaline Phosphatase (38-126) U/L Albumin (3.5-5.0) g/dL 09/02/23 Range/Units 06:32 Plt Count 121 L (150-450) k/uL Potassium (3.5-5.1) mmol/L Carbon Dioxide (22-30) mmol/L BUN (9-20) mg/dL Creatinine (0.66-1.25) mg/dL Glucose (74-99) mg/dL POC Glucose (mg/dL) (70-110) mg/dL Calcium (8.4-10.2) mg/dL Magnesium (1.6-2.3) mg/dL Alkaline Phosphatase (38-126) U/L Albumin (3.5-5.0) g/dL Thrombosis Risk Factor Assmnt - Choose All That Apply Each Risk Factor Represents 2 Points: Age 61-74 years Thrombosis Risk Factor Assessment Total Risk Factor Score: 2 Thrombosis Risk Factor Assessment Level: Low Risk
--- NOTE | 2023-09-02 13:41 | US ---
EXAMINATION TYPE: US carotid duplex BILAT DATE OF EXAM: 09/02/2023 Exam done portable COMPARISON: NONE CLINICAL INDICATION: Male, 63 years old with history of Syncope; TECHNIQUE: Carotid duplex ultrasound examination. Indirect Doppler criteria was utilized. FINDINGS: EXAM MEASUREMENTS: RIGHT: Peak Systolic Velocity (PSV) cm/sec ----- Right CCA: 91.9 ----- Right ICA: 62.9 ----- Right ECA: 138.5 ICA/CCA ratio: 0.7 RIGHT: End Diastole cm/sec ----- Right CCA: 20.4 ----- Right ICA: 22.7 ----- Right ECA: 14.4 LEFT: Peak Systolic Velocity (PSV) cm/sec ----- Left CCA: 83.1 ----- Left ICA: 84.2 ----- Left ECA: 124.7 ICA/CCA ratio: 1.0 LEFT: End Diastole cm/sec ----- Left CCA: 23.7 ----- Left ICA: 30.0 ----- Left ECA: 16.5 VERTEBRALS (direction of flow): Right Vertebral: Antegrade Left Vertebral: Antegrade Rhythm: Normal No significant stenosis IMPRESSION: No evidence for hemodynamically significant stenosis. Criteria for Assigning % of Stenosis / Diameter reduction (Estimation based on the indirect measurements of the internal carotid artery velocities (ICA PSV). 1. Normal (no stenosis)=ICA PSV < 125 cm/s: ratio < 2.0: ICA EDV<40 cm/s. 2. Less than 50% stenosis=ICA PSV < 125 cm/s: ratio < 2.0: ICA EDV<40 cm/s. 3. 50 to 69% stenosis=ICA PSV of 125 to 230 cm/s: ration 2.0 ? 4.0: ICA EDV 40-100 cm/s. 4. Greater than 70% stenosis to near occlusion= ICA PSV > 230 cm/s: ratio > 4.0: ICA EDV > 100 cm/s. 5. Near occlusion= ICA PSV velocities may be low or undetectable: variable ratio and ICA EDV. 6. Total occlusion=unable to detect flow.
[2023-09-02 16:17] LABS: Glucose,Whole Blood 186 mg/dL (70-110)
[2023-09-02 19:51] LABS: Glucose,Whole Blood 249 mg/dL (70-110)
[2023-09-02 23:28] VITALS: RESP 18
[2023-09-03 05:54] LABS: Glucose,Whole Blood 146 mg/dL (70-110)
[2023-09-03 10:43] VITALS: BP 145/93; PULSE 72; TEMP 98.5
[2023-09-03 11:19] LABS: Glucose,Whole Blood 182 mg/dL (70-110)
--- NOTE | 2023-09-03 11:34 | P.PN ---
Subjective Progress Note Date: 09/03/23 Principal diagnosis: Syncope. This is a 3-year-old white male with history of coronary artery disease, status post angioplasty of RCA back about a month ago by Dr. Bear. Known history of hypertension, pqw-guohion-msnqpjfud diabetes, patient was experiencing yesterday intermittent episodes of chest pains, and this has been noted for the last few days prior to admission. Patient initially felt that this may be indigestion. However his chest pain responded after he took 2 sublingual nitroglycerin. Then he became more concerned that his pain is most likely cardiac rather than GI in nature. Patient came into the ER, and he was having workup including blood draws. Apparently there was some difficulty getting IV access or drawing blood from the patient, and on his second poke patient felt lightheaded and he knew that he was going to pass out, patient passed out for about 30 seconds. Supposedly the patient went pulseless however the patient tells me that he had similar episodes in the past after blood draws related to vasovagal symptoms. But the last episode he had was over 40 years ago. Patient was seen by cardiology and he underwent cardiac catheterization and there was no evidence of any significant coronary artery disease to correlate with his symptoms. Hence cardiology recommended that the patient go off beta-blockers for now, and to continue to monitor. During my evaluation the patient was asymptomatic. No chest pain no cough no wheezing no shortness of breath no nausea no vomiting no abdominal pain Progress note dated September 03, 2023. The patient is seen today in room 357. The patient has been cleared by cardiology for discharge. The patient is on room air. He is not receiving any IV fluids. He denies any shortness of breath. He denies any chest pain. His only complaint today was a bit of lightheadedness. Labs today include a glucose of 182. The patient is hoping to be discharged home today. From the pulmonary/critical care standpoint, the patient appears to be stable, and could be discharged, by the hospital service. Objective - Vital Signs Vital signs: Vital Signs Temp 98.5 F 09/03/23 08:00 Pulse 72 09/03/23 08:00 Resp 18 09/03/23 08:00 BP 145/93 09/03/23 08:00 Pulse Ox 98 09/03/23 08:00 FiO2 Intake & Output 09/02/23 09/03/2324 18:59 06:59 18:59 Intake Total 238 0 Balance 238 0 Weight 82.8 kg Intake: IV 20 Invasive Line 1 10 Invasive Line 2 10 Oral 218 0 Other: Voiding Method Toilet Toilet Toilet # Voids 1 1 # Bowel Movements 1 - Exam No acute distress, oriented 3. The patient is currently on room air. HEENT examination is grossly unremarkable. Mucous membranes are moist. No oral lesions. Neck supple. Full range of motion. No adenopathy thyromegaly or neck vein distention. Cardiovascular examination reveals regular rhythm rate. S1-S2 normal. No S3 or S4. No discernible murmur noted. Lungs reveal clear breath sounds. Breath sounds are equal bilaterally. No adventitious lung sounds including wheezes rhonchi or crackles. Abdomen soft bowel sounds are heard. No masses or tenderness. Extremities are intact. No cyanosis clubbing or edema. Skin is without rash or lesion. Neurologic examination is brief but nonfocal. - Labs CBC & Chem 7: 09/02/23 06:32 09/02/23 06:32 Labs: Abnormal Lab Results - Last 24 Hours (Table) 09/02/23 09/02/23 09/02/23 Range/Units 11:36 16:15 19:49 POC Glucose (mg/dL) 212 H 186 H 249 H (70-110) mg/dL 09/03/23 09/03/23 Range/Units 05:52 11:17 POC Glucose (mg/dL) 146 H 182 H (70-110) mg/dL Assessment and Plan Assessment: Possible asystole, versus vasovagal syncope. History of underlying coronary artery disease, and previous stenting of the right coronary artery. S/P cardiac catheterization, without evidence of critical coronary artery disease. Hyperlipidemia. Benign essential hypertension. Type 2 diabetes mellitus. Plan: Plan dated September 03, 2023. The patient is very stable from the pulmonary standpoint, and never actually had to come to the ICU. From the cardiology standpoint, he is free to go. He likely had an episode of vasovagal syncope. Labs, x-rays, and medications are reviewed. We will continue to follow make recommendations along the way. No follow-up is necessary. Time with Patient: Less than 30
--- NOTE | 2023-09-03 14:13 | P.DS ---
Providers Date of admission: 09/01/23 16:08 Expected date of discharge: 09/03/23 Attending physician: Laura Bateman Consults: 09/01/23 16:02 Consult Physician Routine Consulting Provider: Wagner Salinas Consult Reason/Comments: icu Do you want consulting provider notified?: Yes Consult Physician Routine Consulting Provider: Selene Bear Consult Reason/Comments: cp,syncope Do you want consulting provider notified?: Yes Primary care physician: Brijesh Lozano Hospital Course: Discharge diagnoses; Unstable angina Vasovagal syncope Hyperkalemia resolved Acute kidney injury resolved Hypercalcemia resolved History of coronary disease s/p angioplasty of mid RCA Hypertension Dyslipidemia Mji-oiprwws-yonsedkhs diabetes mellitus Hospital course; patient 63-year-old gentleman with past medical his significant for coronary artery disease, hypertension, hyperlipidemia presented to ER because of chest pain. Patient stated that he was all right a week back when started experienc ing chest pain that was central in location, over the last day pain worsened, was pressure-like, nonradiating, no aggravating or relieving factor associated chest pain. There was no complaint of shortness of breath. No complaint of palpitation. Patient denies any orthopnea or PND. Because of this chest pain, patient presented to the ER. While in the ER, patient had 30 second pause and lost consciousness. Initial lab work done in the ER showed WBC 7.9, hemoglobin 17.4, platelet count 149, sodium 138, potassium 5.5, BUN 36, creatinine 1.28, glucose 179, calcium 10.5, magnesium 2.4, alk phos 37, albumin 5.4 EKG done in the ER showed heart rate of 72 , no ST segment elevation or depression seen, no T-wave inversions seen. Chest x-ray done in the ER showed no acute cardiopulmonary process CT head done showed age-related atrophic and chronic small vessel ischemic changes without acute intracranial process. Patient was taken for emergent cardiac cath by cardiology and it showed mild nonobstructive disease involving the right coronary artery and mild to moderate disease involving circumflex coronary artery that seems unchanged Patient admitted to internal medicine service 09/02. Patient was evaluated by cardiology and EP, at this time stating patient's syncopal episode is most likely vasovagal in nature. At this time advised discontinuing AV marisela blocking agents. Patient started on Norvasc. 2D echo reviewed, no wall motion abnormality, LVEF is normal. Ultrasound of the carotids done showed no stenosis of carotid circulation. At this time patient be discharged to follow-up outpatient with PCP PHYSICAL EXAMINATION: GENERAL: The patient is alert and oriented x3, not in any acute distress. Well developed, well nourished. HEENT: Pupils are round and equally reacting to light. EOMI. No scleral icterus. No conjunctival pallor. Normocephalic, atraumatic. No pharyngeal erythema. No thyromegaly. CARDIOVASCULAR: S1 and S2 present. No murmurs, rubs, or gallops. PULMONARY: Chest is clear to auscultation, no wheezing or crackles. ABDOMEN: Soft, nontender, nondistended, normoactive bowel sounds. No palpable organomegaly. MUSCULOSKELETAL: No joint swelling or deformity. EXTREMITIES: No cyanosis, clubbing, or pedal edema. NEUROLOGICAL: Gross neurological examination did not reveal any focal deficits. SKIN: No rashes. Dictation was produced using [employer] dictation software. please excuse any grammatical, word or spelling errors. Patient Condition at Discharge: Good Plan - Discharge Summary Discharge Rx Participant: Yes New Discharge Prescriptions: New amLODIPine [Norvasc] 10 mg PO DAILY 30 Days #30 tab Continue traMADol HCL [Ultram] 50 mg PO TID PRN PRN Reason: Pain Diclofenac Sodium [Voltaren] 50 mg PO TID PRN PRN Reason: Pain methocarbamoL 500 mg PO DIRECTED PRN PRN Reason: Muscle Spasm Cetirizine HCl [Zyrtec] 10 mg PO DAILY Dulaglutide [Trulicity] 0.75 mg SQ TU lisinopriL [Zestril] 10 mg PO DAILY Aspirin 81 mg PO DAILY #90 tab Nitroglycerin Sl Tabs [Nitrostat] 0.4 mg SUBLINGUAL Q5M PRN #100 tab PRN Reason: Chest Pain Acetaminophen Tab [Tylenol] 650 mg PO Q6HR PRN tab PRN Reason: Mild Pain Or Fever > 100.5 Empagliflozin [Jardiance] 25 mg PO DAILY Fenofibrate Nanocrystallized [Fenofibrate] 145 mg PO DAILY Allerplex 1 dose PO Q4H PRN PRN Reason: Allergy Symptoms Antronex 1 dose PO Q4H PRN PRN Reason: Allergy Symptoms Prasugrel [Effient] 10 mg PO DAILY #90 tab Atorvastatin Calcium [Lipitor] 40 mg PO DAILY 90 Days #90 tab Discontinued Cetirizine HCl [Zyrtec] 10 mg PO HS PRN PRN Reason: Allergy Symptoms Metoprolol Succinate (ER) [Toprol XL] 12.5 mg PO DAILY #180 tab Discharge Medication List Diclofenac Sodium [Voltaren] 50 mg PO TID PRN 11/23/20 [History] methocarbamoL 500 mg PO DIRECTED PRN 11/23/20 [History] traMADol HCL [Ultram] 50 mg PO TID PRN 11/23/20 [History] Allerplex 1 dose PO Q4H PRN 07/30/23 [History] Antronex 1 dose PO Q4H PRN 07/30/23 [History] Cetirizine HCl [Zyrtec] 10 mg PO DAILY 07/30/23 [History] Dulaglutide [Trulicity] 0.75 mg SQ TU 07/30/23 [History] Empagliflozin [Jardiance] 25 mg PO DAILY 07/30/23 [History] Fenofibrate Nanocrystallized [Fenofibrate] 145 mg PO DAILY 07/30/23 [History] lisinopriL [Zestril] 10 mg PO DAILY 07/30/23 [History] Acetaminophen Tab [Tylenol] 650 mg PO Q6HR PRN tab 08/01/23 [Rx] Aspirin 81 mg PO DAILY #90 tab 08/01/23 [Rx] Atorvastatin Calcium [Lipitor] 40 mg PO DAILY 90 Days #90 tab 08/01/23 [Rx] Nitroglycerin Sl Tabs [Nitrostat] 0.4 mg SUBLINGUAL Q5M PRN #100 tab 08/01/23 [Rx] Prasugrel [Effient] 10 mg PO DAILY #90 tab 08/01/23 [Rx] amLODIPine [Norvasc] 10 mg PO DAILY 30 Days #30 tab 09/03/23 [Rx] Follow up Appointment(s)/Referral(s): Vinod Benoit MD [Medical Doctor] - 09/13/23 9:45 am (EVENT MONITOR AT CARDIOLOGY OFFICE 09/04/2023 (AVOID LUNCH TIMES 11AM-1PM)) Brijesh Lozano [Primary Care Provider] - 1-2 days (Please call office to set up appointment) Patient Instructions/Handouts: Chest Pain (DC) Activity/Diet/Wound Care/Special Instructions: Patient to pick out hand event monitor at [facility] office at appointment w Dr Benoit. Discharge Disposition: HOME SELF-CARE
--- NOTE | 2023-09-03 14:34 | P.PN ---
Subjective Progress Note Date: 09/03/23 HISTORY OF PRESENT ILLNESS: Patient is status post cardiac catheterization with Dr. Curtis revealing mild nonobstructive disease involving the RCA and mild to moderate disease involving the circumflex. Patient examined this morning the bedside. Patient currently denies chest pain or pressure. He denies shortness of breath. Telemetry reviewed with no episodes of bradycardia or sinus pauses. The patient did have a reported 30 second episode of asystole per the ER. However there are no telemetry strips available for review. He was started on dopamine which has since been discontinued yesterday. 09/02 TSH normal at 0.597. Echocardiogram reveals EF of 60 to 65%. Results reviewed with the patient. Discussed in detail the symptoms of brought him into the hospital and the episode of pause/sinus arrest. Patient had had 1 episode prior to this in 1997. On the day that this occurred recently, patient was out in the sun exposed to the sun and dehydrated. Patient is thought to have an extreme vasovagal response which was provoked by the blood draw and worsened by nitroglycerin, dehydration. Patient was advised to always hydrate well, prevent sun exposure and limit any alcohol to 1 drink. He is scheduled to go on a sailing trip in [facility] and was advised to postpone this. He will follow-up with Dr. Benoit in the office and also an event monitor will be arranged. PHYSICAL EXAM: VITAL SIGNS: Reviewed. GENERAL: Well-developed in no acute distress. NECK: Supple. No JVD or thyromegaly LUNGS: Respirations even and unlabored. Lungs essentially clear to auscultation bilaterally. HEART: Regular rate and rhythm. S1 and S2 heard. EXTREMITIES: Normal range of motion. No clubbing or cyanosis. Peripheral pulses intact. No lower extremity edema ASSESSMENT: Reported 30 second duration of asystole in the ER, no telemetry strips available for review secondary to cardioinhibitory neurocardiogenic syncope Status postcardiac catheterization revealing mild nonobstructive disease involving the RCA and mild to moderate disease involving the circumflex, mid RCA stent patent History of CAD with previous stenting of the RCA Hypertension Hyperlipidemia Diabetes PLAN: Continue current cardiac medications Okay to hold beta-jer Patient will obtain an event monitor from [facility]. Patient to follow-up with Dr. Benoit postdischarge and has appointment scheduled on 09/12 Nurse practitioner note has been reviewed by physician. Signing provider agrees with the documented findings, assessment, and plan of care documented by ASSOCIATE GENETICS PROFESSOR as a scribe. Objective - Vital Signs Vital signs: Vital Signs Temp 98.5 F 09/03/23 08:00 Pulse 72 09/03/23 08:00 Resp 18 09/03/23 08:00 BP 145/93 09/03/23 08:00 Pulse Ox 98 09/03/23 08:00 FiO2 Intake & Output 09/02/23 09/03/23 09/03/23 18:59 06:59 18:59 Intake Total 238 0 Balance 238 0 Weight 82.8 kg Intake: IV 20 Invasive Line 1 10 Invasive Line 2 10 Oral 218 0 Other: Voiding Method Toilet Toilet Toilet # Voids 1 1 # Bowel Movements 1 - Labs CBC & Chem 7: 09/02/23 06:32 09/02/23 06:32 Labs: Abnormal Lab Results - Last 24 Hours (Table) 09/02/23 09/02/23 09/03/23 Range/Units 16:15 19:49 05:52 POC Glucose (mg/dL) 186 H 249 H 146 H (70-110) mg/dL 09/03/23 Range/Units 11:17 POC Glucose (mg/dL) 182 H (70-110) mg/dL
== END 2023-09-03 12:25 | disposition home or self-care (01) | DRG 191 ==
LOC: EC 13:45 → 2SICU 16:08 → 3SCARD 18:02
PROVIDERS: ADMIT Hospitalist; ATTEND Hospitalist
PROC: B2111ZZ Fluoroscopy of Multiple Coronary Arteries using Low Osmolar Contrast (ICD-10-PCS; principal; 2023-09-01 15:30)
PROC: 4A023N7 Measurement of Cardiac Sampling and Pressure, Left Heart, Percutaneous Approach (ICD-10-PCS; principal; 2023-09-01 15:30)
DX: I25.110 Atherosclerotic heart disease of native coronary artery with unstable angina pectoris (principal); I10 Essential (primary) hypertension; Z95.5 Presence of coronary angioplasty implant and graft; E11.40 Type 2 diabetes mellitus with diabetic neuropathy, unspecified; Z79.85 Long-term (current) use of injectable non-insulin antidiabetic drugs; E86.0 Dehydration; R55 Syncope and collapse; E83.52 Hypercalcemia; I45.5 Other specified heart block; G47.30 Sleep apnea, unspecified; E78.5 Hyperlipidemia, unspecified; E87.5 Hyperkalemia; I25.2 Old myocardial infarction; K76.0 Fatty (change of) liver, not elsewhere classified; N17.9 Acute kidney failure, unspecified; Z79.02 Long term (current) use of antithrombotics/antiplatelets; Z79.82 Long term (current) use of aspirin; Z79.899 Other long term (current) drug therapy; Z88.2 Allergy status to sulfonamides
CPT/HCPCS: 36415; 70450; 71045; 80048; 80053; 83690; 83735; 83880; 84100; 84443; 84484; 85025; 85379; 85610; 85730; 93005; 93306; 93458; 93880; 96361; 96365; 99291

== ENCOUNTER → 2023-09-11 | Outpatient (CLI) | payer OTHER ==
[2023-09-11 15:06] LABS: HCT 48.1 % (39.6-50.0); HGB 16.3 g/dL (13.0-17.0); MCH 32.4 pg (27.0-32.0); MCHC 33.9 g/dL (32.0-37.0); MCV 95.6 FL (80.0-97.0); Mean Platelet Volume 12.5 FL (9.5-12.2); NRBC Per 100 WBC 0 X 10*3/uL (0.00-0.01); Platelet Count 114 X 10*3/uL (140-440); RBC 5.03 X 10*6/uL (4.40-5.60); RDW 11.9 % (11.5-14.5)
[2023-09-11 18:17] LABS: Microalbumin Creatinine Ratio <20 mg/g Cr (0-30); Urine Creatinine 60.1 mg/dL (39.0-259.0)
[2023-09-11 21:54] LABS: NT-Pro-B-Type Natriuretic Pept <36 pg/mL (0-125)
[2023-09-11 23:12] LABS: C Reactive Protein, High Sens 0.507 mg/L (0.000-3.000)
[2023-09-11 23:37] LABS: ALT 29 U/L (10-49); AST 28 U/L (14-35); Albumin 4.9 g/dL (3.8-4.9); Albumin/Globulin Ratio 2.33 Ratio (1.60-3.17); Alkaline Phosphatase 41 U/L (41-126); BUN/Creat Ratio 25.42 Ratio (12.00-20.00); Blood Urea Nitrogen 30.5 mg/dL (9.0-27.0); Calcium 9.8 mg/dL (8.7-10.3); Carbon Dioxide 15.9 mmol/L (21.6-31.8); Chloride 103 mmol/L (96-109); Chol/HDL Ratio 3.87 Ratio; Globulin 2.1 g/dL (1.6-3.3); Glucose 159 mg/dL (70-110); LDL Cholesterol,Calculated 84.4 mg/dL (0.0-131.0); Sodium 140 mmol/L (135-145); Total Bilirubin 0.5 mg/dL (0.3-1.2)
== END | disposition home or self-care (01) ==
LOC: LABWHC1 09:55
PROVIDERS: ATTEND Student in an Organized Health Care Education/Training Program
DX: E11.65 Type 2 diabetes mellitus with hyperglycemia (principal); E78.5 Hyperlipidemia, unspecified; I25.10 Atherosclerotic heart disease of native coronary artery without angina pectoris; E11.22 Type 2 diabetes mellitus with diabetic chronic kidney disease; N18.9 Chronic kidney disease, unspecified; D63.1 Anemia in chronic kidney disease
CPT/HCPCS: 36415; 80053; 80061; 82043; 82570; 83036; 83880; 84443; 85027; 86141

== ENCOUNTER 2023-11-25 14:41 | Observation (INO) | payer OTHER ==
[2023-11-25 15:23] LABS: Basophils % (A) 1 %; Eosinophils # (A) 0.1 k/uL (0-0.7); Eosinophils % (A) 2 %; HCT 48.4 % (39.0-53.0); Lymphocytes # (A) 1.1 k/uL (1.0-4.8); Lymphocytes % (A) 21 %; MCH 32.8 pg (25.0-35.0); MCV 93.8 fL (80.0-100.0); Mean Platelet Volume 9.9; Monocytes # (A) 0.4 k/uL (0-1.0); Monocytes % (A) 7 %; Neutrophils # (A) 3.4 k/uL (1.3-7.7); Neutrophils % (A) 66 %; Platelet Count 131 k/uL (150-450); RBC 5.17 m/uL (4.30-5.90); RDW 12.9 % (11.5-15.5); WBC 5.1 k/uL (3.8-10.6)
[2023-11-25 15:32] LABS: ALT 33 U/L (4-49); AST 34 U/L (17-59); African American GFR (CKD) >90 (>60 ml/min/1.73 sqM); Albumin 4.8 g/dL (3.5-5.0); Alkaline Phosphatase 64 U/L (38-126); Anion Gap 10 mmol/L; Blood Urea Nitrogen 29 mg/dL (9-20); Calcium 9.8 mg/dL (8.4-10.2); Carbon Dioxide 22 mmol/L (22-30); Chloride 102 mmol/L (98-107); Glucose 167 mg/dL (74-99); Magnesium 2.2 mg/dL (1.6-2.3); Non-African American GFR(CKD) >90 (>60 ml/min/1.73 sqM); Potassium 4.5 mmol/L (3.5-5.1); Sodium 134 mmol/L (137-145); Total Bilirubin 0.9 mg/dL (0.2-1.3); Total Protein 7.2 g/dL (6.3-8.2)
[2023-11-25 15:33] LABS: INR 0.9 (<1.2); Partial Thromboplastin Time 23.5 sec (22.0-30.0); Prothrombin Time 10.2 sec (10.0-12.5)
--- NOTE | 2023-11-25 15:35 | ED ---
Chest Pain HPI - General Chief Complaint: Chest Pain Stated Complaint: CHEST PAIN Time Seen by Provider: 11/25/23 14:51 Source: patient, RN notes reviewed Mode of arrival: ambulatory Limitations: no limitations - History of Present Illness Initial Comments: 63-year-old male presents emergency department chief complaint of chest pain, shortness of breath. Patient states he had stent placed and July of this year. Patient states he had an an event following month and when she fully had a vasovagal and had some asystole he had a repeat cath with no acute findings. Patient states that he has noticed some exertional shortness of breath and left- sided chest pain today which is new symptoms compared to when he had the past. He is taking all his medication has had no recent significant changes other than he has been taking Mucinex since last week because he was diagnosed with COVID- 19 on . Patient has had leg pain leg swelling no history of DVT or PE - Related Data Home Medications Medication Instructions Recorded Confirmed Diclofenac Sodium [Voltaren] 50 mg PO TID PRN 11/23/20 09/01/23 methocarbamoL 500 mg PO DIRECTED PRN 11/23/20 09/01/23 traMADol HCL [Ultram] 50 mg PO TID PRN 11/23/20 09/01/23 Allerplex 1 dose PO Q4H PRN 07/30/23 09/01/23 Antronex 1 dose PO Q4H PRN 07/30/23 09/01/23 Cetirizine HCl [Zyrtec] 10 mg PO DAILY 07/30/23 09/01/23 Dulaglutide [Trulicity] 0.75 mg SQ TU 07/30/23 09/01/23 Empagliflozin [Jardiance] 25 mg PO DAILY 07/30/23 09/01/23 Fenofibrate Nanocrystallized 145 mg PO DAILY 07/30/23 09/01/23 [Fenofibrate] lisinopriL [Zestril] 10 mg PO DAILY 07/30/23 09/01/23 Previous Rx's Medication Instructions Recorded Acetaminophen Tab [Tylenol] 650 mg PO Q6HR PRN tab 08/01/23 Aspirin 81 mg PO DAILY #90 tab 08/01/23 Atorvastatin Calcium [Lipitor] 40 mg PO DAILY 90 Days #90 tab 08/01/23 Nitroglycerin Sl Tabs [Nitrostat] 0.4 mg SUBLINGUAL Q5M PRN #100 tab 08/01/23 Prasugrel [Effient] 10 mg PO DAILY #90 tab 08/01/23 amLODIPine [Norvasc] 10 mg PO DAILY 30 Days #30 tab 09/03/23 Allergies Allergy/AdvReac Type Severity Reaction Status Date / Time Sulfa (Sulfonamide Allergy Rash/Hives Verified 11/25/23 14:50 Antibiotics) Review of Systems ROS Statement: Those systems with pertinent positive or pertinent negative responses have been documented in the HPI. ROS Other: All systems not noted in ROS Statement are negative. EKG Findings - EKG Comments: EKG Findings:: EKG performed at 14: 55 sinus rhythm with rate of 78 IN 214 QRS 105 QT/QTc 370/408 - EKG Results: EKG: interpreted by SERGE Past Medical History Past Medical History: Diabetes Mellitus, Sleep Apnea/CPAP/BIPAP Additional Past Medical History / Comment(s): CURRENTLY DIET CONTROL DIABETES. STATES STOPPED ALL DIABETIC MEDS ABOUT 2 MONTHS AGO BECUASE NOTHING WAS WORKING. STATES THAT CBG STAYS ABOUT 240. fatty liver Last Myocardial Infarction Date:: 07/31/23 History of Any Multi-Drug Resistant Organisms: None Reported Past Surgical History: Heart Catheterization With Stent, Orthopedic Surgery Additional Past Surgical History / Comment(s): LT ELBOW DENERVATION. BACK INJECTIONS. COLONOSOCPY, right and left shoulder rotator cuff repairs Past Anesthesia/Blood Transfusion Reactions: Postoperative Nausea & Vomiting (PONV) Date of Last Stent Placement:: 07/31/23 Past Psychological History: No Psychological Hx Reported Smoking Status: Never smoker Past Alcohol Use History: Rare Past Drug Use History: None Reported - Past Family History Father Family Medical History: Cancer Additional Family Medical History / Comment(s): PROSTATE General Exam Limitations: no limitations General appearance: alert, in no apparent distress Head exam: Present: atraumatic, normocephalic, normal inspection ENT exam: Present: normal exam, mucous membranes moist Neck exam: Present: normal inspection, full ROM. Absent: tenderness, meningismus, lymphadenopathy Respiratory exam: Present: normal lung sounds bilaterally. Absent: respiratory distress, wheezes, rales, rhonchi, stridor Cardiovascular Exam: Present: regular rate, normal rhythm, normal heart sounds. Absent: systolic murmur, diastolic murmur, rubs, gallop, clicks GI/Abdominal exam: Present: soft, normal bowel sounds. Absent: distended, tenderness, guarding, rebound, rigid Neurological exam: Present: alert, oriented X3, CN II-XII intact, reflexes normal. Absent: motor sensory deficit Skin exam: Present: warm, dry, intact, normal color. Absent: rash Course Vital Signs 11/25/23 11/25/23 14:46 15:08 Temperature 97.9 F Pulse Rate 80 82 Respiratory 20 18 Rate Blood Pressure 154/88 144/91 O2 Sat by Pulse 99 96 Oximetry Chest Pain MDM - MDM Was pt. sent in by a medical professional or institution (, PA, TRAIN CONTROL TECHNICIAN, urgent care, hospital, or fdc...) When possible be specific @ -No Did you speak to anyone other than the patient for history (EMS, parent, family, police, friend...)? What history was obtained from this source @ -No Did you review nursing and triage notes (agree or disagree)? Why? @ -I reviewed and agree with nursing and triage notes Were old charts reviewed (outside hosp., previous admission, EMS record, old EKG, old radiological studies, urgent care reports/EKG's, fdc records)? Report findings @ -Reviewed prior heart cath, cardiology evaluation, EKG Differential Diagnosis (chest pain, altered mental status, abdominal pain women, abdominal pain men, vaginal bleeding, weakness, fever, dyspnea, syncope, headache, dizziness, GI bleed, back pain, seizure, CVA, palpatations, mental health, musculoskeletal)? @ -Differential Chest Pain: Stable Angina, Unstable Angina, STEMI, NSTEMI Aortic Dissection, Pneumothorax, Musculoskeletal, Esophageal Spasm GERD, Cholecystitis, Pancreatitis, Zoster, this is not meant to be an all-inclusive list. EKG interpreted by me (3pts min.). @ -As above X-rays interpreted by me (1pt min.). @ -Chest x-ray shows no acute cardiopulmonary process CT interpreted by me (1pt min.). @ -CT angio chest negative for acute PE U/S interpreted by me (1pt. min.). @ -None done What testing was considered but not performed or refused? (CT, X-rays, U/S, labs)? Why? @ -None What meds were considered but not given or refused? Why? @ -None Did you discuss the management of the patient with other professionals (professionals i.e. , PA, TRAIN CONTROL TECHNICIAN, lab, RT, psych nurse, social sciences lecturer, digital traffic coordinator, teacher, tactical deception plans officer, wrapper caser)? Give summary @ -Bateman for admission Was smoking cessation discussed for >3mins.? @ -No Was critical care preformed (if so, how long)? @ -No Were there social determinants of health that impacted care today? How? (Homelessness, low income, unemployed, alcoholism, drug addiction, transportation, low edu. Level, literacy, decrease access to med. care, custodial, rehab)? @ -No Was there de-escalation of care discussed even if they declined (Discuss DNR or withdrawal of care, Hospice)? DNR status @ -No What co-morbidities impacted this encounter? (DM, HTN, Smoking, COPD, CAD, Cancer, CVA, ARF, Chemo, Hep., AIDS, mental health diagnosis, sleep apnea, morbid obesity)? @ -CAD Was patient admitted / discharged? Hospital course, mention meds given and route, prescriptions, significant lab abnormalities, going to OR and other pertinent info. @ -Admitted patient's initial troponin is negative D-dimer was elevated CT was negative for PE. Patient be admitted for cardiac rule out given high risk and concerning ACS symptoms Undiagnosed new problem with uncertain prognosis? @ -No Drug Therapy requiring intensive monitoring for toxicity (Heparin, Nitro, Insulin, Cardizem)? @ -No Were any procedures done? @ -No Diagnosis/symptom? @ -Chest pain Acute, or Chronic, or Acute on Chronic? @ -Acute Uncomplicated (without systemic symptoms) or Complicated (systemic symptoms)? @ -Complicated Side effects of treatment? @ -No Exacerbation, Progression, or Severe Exacerbation? @ -No Poses a threat to life or bodily function? How? (Chest pain, USA, PA, pneumonia, PE, COPD, DKA, ARF, appy, cholecystitis, CVA, Diverticulitis, Homicidal, Suicidal, threat to staff... and all critical care pts) @ -Yes possible ACS, cardiac arrest Disposition Clinical Impression: Chest pain Disposition: ADMITTED IP TO THIS [facility] Condition: Fair Referrals: Brijesh Lozano [Primary Care Provider] - 1-2 days Time of Disposition: 16:39
[2023-11-25 15:39] LABS: NT-Pro-B-Type Natriuretic Pept <20 pg/mL
--- NOTE | 2023-11-25 15:45 | XR ---
EXAMINATION TYPE: XR chest 2V DATE OF EXAM: 11/25/2023 3:38 PM CLINICAL INDICATION: Male, 63 years old with history of Chest Pain; COMPARISON: Chest radiographs from 09/01/2023 TECHNIQUE: XR chest 2V Frontal view of the chest. FINDINGS: Lungs/Pleura: There is no evidence of pleural effusion, focal consolidation, or pneumothorax. Pulmonary vascularity: Unremarkable. Heart/mediastinum: Cardiomediastinal silhouette is unremarkable. Musculoskeletal: No acute osseous pathology. IMPRESSION: No acute cardiopulmonary disease/process. [facility], , 11/25/2023 3:42 PM
--- NOTE | 2023-11-25 16:27 | CT ---
EXAMINATION TYPE: CT chest angio for PE CT DLP: 376.5 mGycm, Automated exposure control for dose reduction was used. DATE OF EXAM: 11/25/2023 4:08 PM COMPARISON: Chest radiograph from same day. CLINICAL INDICATION: Male, 63 years old with history of chest pain; Chest pain x 2 days, pt reports s ob with exertion, pt reports feeling lightheaded pt reports n/v and with hx of stent placement in colt e pt COVID+ on TECHNIQUE/CONTRAST: CTA scan of the thorax is performed with IV Contrast, patient injected with 85ml mL of Isovue 370, CO P images are created and reviewed these are created on a separate workstation.. FINDINGS: Pulmonary Artery: There is no evidence for a central filling defect within the pulmonary vasculature to suggest acute pulmonary embolism. Limited evaluation of the segmental and subsegmental branches se condary to bolus timing. The pulmonary artery is of normal size. Lungs/Pleura: No evidence of focal consolidation, pleural effusion or pneumothorax. Airway: Large airways are patent. Heart: Heart is within normal limits for size. Vasculature: No evidence of aortic aneurysm. Mediastinum: No gross evidence of adenopathy. Left pulmonary hilum partially calcified lymph nodes. Musculoskeletal: Mild degenerative disc disease changes are present throughout the thoracolumbar spin e. Soft Tissues/lymph nodes: Unremarkable. Lower neck: No significant findings. Upper Abdomen: Diffuse low-attenuation to the liver parenchyma.. IMPRESSION: 1. No evidence of central pulmonary embolism. Limited evaluation of the segmental and subsegmental b ranches. 2. Sequela of chronic granulomatous disease.. [facility], , 11/25/2023 4:25 PM
[2023-11-25] MEDS ORDERED: NITROGLYCERIN SL TABS 0.4 MG TAB SUBLINGUAL PRN (16:35)
[2023-11-25] MEDS: ZINC SULFATE 220 MG CAP PO SCH (19:08)
[2023-11-25] MEDS: ENOXAPARIN 40 MG/0.4 ML SYRINGE SQ SCH (19:09)
[2023-11-25] MEDS: SODIUM CHLORIDE 0.9% 1,000 ML IV SCH (19:13)
[2023-11-25] MEDS ORDERED: HEPARIN SODIUM,PORCINE 5,000 UNIT/ML 1 ML VIAL SQ SCH (21:00)
[2023-11-25] MEDS: PANTOPRAZOLE 40 MG/10 ML VIAL IVP SCH (21:05)
[2023-11-25] MEDS: ATORVASTATIN 20 MG TAB PO SCH (21:05)
--- NOTE | 2023-11-26 03:16 | HP ---
HISTORY AND PHYSICAL CHIEF COMPLAINT: Chest pain and weakness. HISTORY OF PRESENT ILLNESS: This 63-year-old gentleman with a past medical history of multiple cardiac issues, being followed by Cardiology, complaining of cough, shortness of breath as well as some chest pain and other symptoms. Patient came to [facility] and the patient was found to have COVID-19 positive recently on . The detailed evaluation showed mild thrombocytopenia, mild hyponatremia. Otherwise, D-dimer was elevated, but there was no evidence of pulmonary embolism or pneumonia at this time. PAST MEDICAL HISTORY: Reviewed, include diabetes mellitus type 2, history of CAD stent. Rest of history on chart is also reviewed. HOME MEDICATIONS: Reviewed, include Lipitor. Dose and rest of medications noted. ALLERGIES: Sulfa. FAMILY HISTORY: History of prostate cancer. SOCIAL HISTORY: No history of smoke or alcohol. REVIEW OF SYSTEMS: Fourteen-point review is negative except as mentioned earlier. PHYSICAL EXAMINATION: VITAL SIGNS: Pulse 78, blood pressure 110/77, respirations 18. HEENT: Conjunctivae normal. NECK: No jugular venous distention. CARDIOVASCULAR: S1, S2. RESPIRATIONS: Breath sounds diminished at the bases. No rhonchi, no crackles. ABDOMEN: Soft, nontender. LEGS: No edema. No swelling. NERVOUS SYSTEM: No focal deficit. LABORATORY DATA: Reviewed. ASSESSMENT: 1. Chest pain coronary artery disease, unstable angina, or myocardial infarction. 2. Acute COVID-19 infection. 3. History of coronary artery disease stent. 4. Diabetes mellitus, type 2. 5. Multiple complex medical issues. RECOMMENDATIONS AND DISCUSSION: This 63-year-old gentleman who presented with multiple complex medical issues. We will monitor the patient closely in telemetry. Rule out myocardial infarction. Cardiology consultation. I would also recommend IV fluids, symptomatic treatment, zinc. Otherwise, we will closely monitor. Infectious disease evaluation for possible remdesivir. Further recommendations for incentive spirometer. MMODL / IJN: [id number] / [facility]
[2023-11-26] MEDS: lisinopriL 10 MG TAB PO SCH (08:11)
[2023-11-26] MEDS: amLODIPine 10 MG TAB PO SCH (08:11)
[2023-11-26] MEDS: ASPIRIN 325 MG TAB PO SCH (08:11)
[2023-11-26] MEDS: DAPAGLIFLOZIN PROPANEDIOL 10 MG TABLET PO SCH (08:11)
[2023-11-26] MEDS: LORATADINE 10 MG TAB PO SCH (08:11)
[2023-11-26] MEDS: FENOFIBRATE 160 MG TAB PO SCH (08:11)
[2023-11-26 08:17] VITALS: RESP 16
[2023-11-26] MEDS: PRASUGREL 10 MG TAB PO SCH (08:22)
[2023-11-26 08:24] LABS: Glucose,Whole Blood 155 mg/dL (70-110)
[2023-11-26] MEDS ORDERED: ASPIRIN 81 MG PO SCH (09:34)
[2023-11-26] MEDS: ACETAMINOPHEN TAB 325 MG TAB PO PRN (09:50)
[2023-11-26 10:09] LABS: Chol/HDL Ratio 2.68 Ratio; LDL Cholesterol,Calculated -26.8 mg/dL (0.0-131.0)
--- NOTE | 2023-11-26 10:48 | P.CRDCN ---
History of Present Illness History of present illness: HISTORY OF PRESENT ILLNESS: This is a 63-year-old male with a past medical history significant for hypertension, hyperlipidemia with statin intolerance, coronary artery disease with previous stenting, and diabetes. Patient follows in the office with Dr. Benoit. We have been asked to see the patient in consultation for chest pain. Patient examined at the bedside. Patient states that he was diagnosed with COVID last . He states yesterday he was sitting watching TV when he began to feel unwell. He reported having pain on the left side of his chest. He states in the past when he required stenting his pain was always on the right side. He reported feeling nauseated, fatigued, and lightheaded. He also reported feeling short of breath when he walked up the stairs. Patient states the pain is not worse with deep inspiration or chest wall palpation. At the time of examination, the patient denies any chest pain or pressure. Patient does report his symptoms are not similar to earlier this year when he underwent stenting. DIAGNOSTICS: - EKG reveals sinus mechanism with no signs of acute ischemia - Chest xray negative for acute process - Laboratory data: WBC 5.1. Hemoglobin 17.0. Platelet count 131. D-dimer 1.03. Sodium 134. Potassium 4.5. BUN 29. Creatinine 0.86. Troponin negative x 3. - Current home cardiac medications include Lipitor 20 mg at night, amlodipine 10 mg daily, Effient 10 mg daily, Jardiance 25 mg daily, lisinopril 10 mg daily, aspirin 81 mg daily, and Repatha 140 mg subcu every 14 days - Most recent echocardiogram obtained in August 2023 revealed ejection fraction 60 to 65%, trace to mild mitral regurgitation, trace tricuspid regurgitation - Cardiac catheterization history: August 2023 revealing mild nonobstructive disease involving RCA and mild to moderate disease involving the circumflex coronary artery that seems unchanged. Mid RCA stent appears patent. REVIEW OF SYSTEMS: At the time of my exam: CONSTITUTIONAL: Denies fever or chills. HEENT: Denies blurred vision, vision changes, or eye pain. Denies hemoptysis CARDIOVASCULAR: Denies chest pain. Denies orthopnea. Denies PND. Denies palpitations RESPIRATORY: Denies shortness of breath. GASTROINTESTINAL: Denies abdominal pain. Denies nausea or vomiting. HEMATOLOGIC: Denies bleeding disorders. GENITOURINARY: Denies any blood in urine. SKIN: Denies pruitis. Denies rash. PHYSICAL EXAM: VITAL SIGNS: Reviewed. GENERAL: Well-developed in no acute distress. HEENT: Head is normocephalic. Pupils are equal, round. Sclerae anicteric. Mucous membranes of the mouth are moist. Neck supple. No JVD or thyromegaly LUNGS: Respirations even and unlabored. Lungs essentially clear to auscultation bilaterally. HEART: Regular rate and rhythm. S1 and S2 heard. ABDOMEN: Soft. Nondistended. Nontender. EXTREMITIES: Normal range of motion. No clubbing or cyanosis. Peripheral pul ses intact. No lower extremity edema NEUROLOGIC: Awake and alert. Oriented x 3. ASSESSMENT: Acute COVID-19 Chest pain, noncardiac, secondary to acute COVID infection, troponin negative x 3 Coronary artery disease with previous stenting of the mid RCA, July 2023, in setting of non-STEMI Hypertension Hyperlipidemia with statin intolerance History of sinus bradycardia Diabetes PLAN: Acute coronary event has been ruled out Resume home cardiac medications No need to obtain echocardiogram at this time Patient's chest pain is likely secondary to his acute COVID infection. If patient continues to have episodes of chest discomfort after his COVID resolves, will consider stress testing or repeat cardiac catheterization Patient may be discharged home today from a cardiac standpoint He is to follow-up in the office with Dr. Benoit Nurse practitioner note has been reviewed by physician. Signing provider agrees with the documented findings, assessment, and plan of care documented by CODING COMPLIANCE SPECIALIST as a scribe. Past Medical History Past Medical History: Diabetes Mellitus, Sleep Apnea/CPAP/BIPAP Additional Past Medical History / Comment(s): CURRENTLY DIET CONTROL DIABETES. STATES STOPPED ALL DIABETIC MEDS ABOUT 2 MONTHS AGO BECUASE NOTHING WAS WORKING. STATES THAT CBG STAYS ABOUT 240. fatty liver Last Myocardial Infarction Date:: 07/31/23 History of Any Multi-Drug Resistant Organisms: None Reported Past Surgical History: Heart Catheterization With Stent, Orthopedic Surgery Additional Past Surgical History / Comment(s): LT ELBOW DENERVATION. BACK INJECTIONS. COLONOSOCPY, right and left shoulder rotator cuff repairs Past Anesthesia/Blood Transfusion Reactions: Postoperative Nausea & Vomiting (PONV) Date of Last Stent Placement:: 07/31/23 Past Psychological History: No Psychological Hx Reported Smoking Status: Never smoker Past Alcohol Use History: Rare Past Drug Use History: None Reported - Past Family History Father Family Medical History: Cancer Additional Family Medical History / Comment(s): PROSTATE Medications and Allergies Home Medications Medication Instructions Recorded Confirmed Type Cetirizine HCl [Zyrtec] 10 mg PO DAILY 07/30/23 11/25/23 History Dulaglutide [Trulicity] 0.75 mg SQ TU 07/30/23 11/25/23 History Empagliflozin [Jardiance] 25 mg PO DAILY 07/30/23 11/25/23 History Fenofibrate Nanocrystallized 145 mg PO DAILY 07/30/23 11/25/23 History [Fenofibrate] lisinopriL [Zestril] 10 mg PO DAILY 07/30/23 11/25/23 History Aspirin 81 mg PO DAILY #90 tab 08/01/23 11/25/23 Rx Prasugrel [Effient] 10 mg PO DAILY #90 tab 08/01/23 11/25/23 Rx amLODIPine [Norvasc] 10 mg PO DAILY 30 Days #30 tab 09/03/23 11/25/23 Rx Atorvastatin [Lipitor] 20 mg PO HS 11/25/23 11/25/23 History Evolocumab [Repatha Sureclick] 140 mg SQ Q14D 11/25/23 11/25/23 History cod liver oiL [Cod Liver Oil] 1 cap PO DAILY 11/25/23 11/25/23 History metFORMIN HCL [Glucophage] 1,000 mg PO BID 11/25/23 11/25/23 History Allergies Allergy/AdvReac Type Severity Reaction Status Date / Time Sulfa (Sulfonamide Allergy Rash/Hives Verified 11/25/23 17:07 Antibiotics) Physical Exam Vitals: Vital Signs Temp Pulse Resp BP Pulse Ox 11/26/23 08:16 98.3 F 70 16 121/76 96 11/26/23 06:14 62 18 119/78 98 11/26/23 04:00 65 18 111/73 97 11/26/23 02:49 60 18 108/77 96 11/26/23 01:00 64 18 109/67 94 L 11/25/23 22:57 68 18 118/82 96 11/25/23 21:13 80 18 123/78 98 11/25/23 19:14 78 18 127/70 97 11/25/23 16:59 78 18 110/77 95 11/25/23 15:08 82 18 144/91 96 11/25/23 14:46 97.9 F 80 20 154/88 99 Results 11/25/23 15:07 11/25/23 15:07 Cardiac Enzymes 11/25/23 11/25/23 11/25/23 Range/Units 15:07 15:07 18:06 AST 34 (17-59) U/L Troponin I <0.012 <0.012 (0.000-0.034) ng/mL 11/25/23 Range/Units 21:07 AST (17-59) U/L Troponin I 0.018 (0.000-0.034) ng/mL Coagulation 11/25/23 Range/Units 15:07 PT 10.2 (10.0-12.5) sec APTT 23.5 (22.0-30.0) sec CBC 11/25/23 Range/Units 15:07 WBC 5.1 (3.8-10.6) k/uL RBC 5.17 (4.30-5.90) m/uL Hgb 17.0 (13.0-17.5) gm/dL Hct 48.4 (39.0-53.0) % Plt Count 131 L (150-450) k/uL Comprehensive Metabolic Panel 11/25/23 Range/Units 15:07 Sodium 134 L (137-145) mmol/L Potassium 4.5 (3.5-5.1) mmol/L Chloride 102 (98-107) mmol/L Carbon Dioxide 22 (22-30) mmol/L BUN 29 H (9-20) mg/dL Creatinine 0.86 (0.66-1.25) mg/dL Glucose 167 H (74-99) mg/dL Calcium 9.8 (8.4-10.2) mg/dL AST 34 (17-59) U/L ALT 33 (4-49) U/L Alkaline Phosphatase 64 (38-126) U/L Total Protein 7.2 (6.3-8.2) g/dL Albumin 4.8 (3.5-5.0) g/dL Current Medications Generic Name Dose Route Start Last Admin Trade Name Freq PRN Reason Stop Dose Admin Amlodipine Besylate 10 mg 11/26/23 09:00 11/26/23 08:11 Amlodipine 10 Mg Tab PO 10 mg DAILY ADOLFO Administration Aspirin 325 mg 11/26/23 09:00 11/26/23 08:11 Aspirin 325 Mg Tab PO 325 mg DAILY ADOLFO Administration Atorvastatin Calcium 20 mg 11/25/23 21:00 11/25/23 21:05 Atorvastatin 20 Mg Tab PO 20 mg HS ADOLFO Administration Dapagliflozin 10 mg 11/26/23 09:00 11/26/23 08:11 Dapagliflozin Propanediol 10 Mg Tablet PO 10 mg DAILY ADOLFO Administration Enoxaparin Sodium 40 mg 11/25/23 17:30 11/26/23 08:22 Enoxaparin 40 Mg/0.4 Ml Syringe SQ Not Given DAILY COUNTS INCLUDE 234 BEDS AT THE [facility] Fenofibrate 160 mg 11/26/23 09:00 11/26/23 08:11 Fenofibrate 160 Mg Tab PO 160 mg DAILY COUNTS INCLUDE 234 BEDS AT THE [facility] Administration Sodium Chloride 1,000 mls @ 75 mls/hr 11/25/23 17:30 11/26/23 05:52 Saline 0.9% IV 75 mls/hr .[id number] ADOLFO Administration Lisinopril 10 mg 11/26/23 09:00 11/26/23 08:11 Lisinopril 10 Mg Tab PO 10 mg DAILY ADOLFO Administration Loratadine 10 mg 11/26/23 09:00 11/26/23 08:11 Loratadine 10 Mg Tab PO 10 mg DAILY COUNTS INCLUDE 234 BEDS AT THE [facility] Administration Nitroglycerin 0.4 mg 11/25/23 16:35 Nitroglycerin Sl Tabs 0.4 Mg Tab SUBLINGUAL Q5M PRN Chest Pain Dulaglutide [ 0.75 mg 11/27/23 09:00 Trulicity] 0.75 Mg/0 SQ .5 Ml Each TU COUNTS INCLUDE 234 BEDS AT THE [facility] Pantoprazole Sodium 40 mg 11/25/23 21:00 11/26/23 08:11 Pantoprazole 40 Mg/10 Ml Vial IVP 40 mg BID ADOLFO Administration Prasugrel 10 mg 11/26/23 09:00 11/26/23 08:22 Prasugrel 10 Mg Tab PO 10 mg DAILY ADOLFO Administration Zinc Sulfate 220 mg 11/25/23 17:30 11/26/23 08:11 Zinc Sulfate 220 Mg Cap PO 220 mg DAILY ADOLFO Administration 11/25/23 15:07 11/25/23 15:07
[2023-11-26 13:48] VITALS: BP 101/67; PULSE 71; TEMP 97.8
--- NOTE | 2023-11-27 08:58 | P.CONS ---
History of Present Illness - Reason for Consult Consult date: 11/26/23 COVID, remdesivir? Requesting physician: Laura Bateman - Chief Complaint Chest discomfort and shortness of breath x 1 day - History of Present Illness Patient is a 63-year-old male with a past medical history significant for diabetes mellitus sleep apnea coronary artery disease he did have a PTCA and stenting July 2023 presenting to the hospital for evaluation of chest pain and increasing shortness of breath patient describing the pain to be mostly the left side of the chest moderate intensity without any radiation with associated shortness of breath patient did have a mild cough but no sputum production no significant URI symptoms did have some nausea but no vomiting no abdominal pain or any diarrhea patient will presentation to the hospital was afebrile and no fever have been recorded subsequently patient was not tachycardic hypotensive or hypoxic no need for supplemental oxygen patient did have a normal white count creatinine has been normal electrolytes were normal liver enzymes are normal patient recently tested positive for COVID-19 patient did have a chest x-ray that was negative acute cardiopulmonary disease process, CT angiogram of the c hest sequelae of granulomatous disease no PE or acute infiltrate patient has been admitted to hospital infectious disease was consulted concerning for possible need for remdesivir Review of Systems Positive point and negatives has been mentioned in the HPI, complete review of systems was performed and all other systems are negative Past Medical History Past Medical History: Diabetes Mellitus, Sleep Apnea/CPAP/BIPAP Additional Past Medical History / Comment(s): CURRENTLY DIET CONTROL DIABETES. STATES STOPPED ALL DIABETIC MEDS ABOUT 2 MONTHS AGO BECUASE NOTHING WAS WORKING. STATES THAT CBG STAYS ABOUT 240. fatty liver Last Myocardial Infarction Date:: 07/31/23 History of Any Multi-Drug Resistant Organisms: None Reported Past Surgical History: Heart Catheterization With Stent, Orthopedic Surgery Additional Past Surgical History / Comment(s): LT ELBOW DENERVATION. BACK INJECTIONS. COLONOSOCPY, right and left shoulder rotator cuff repairs Past Anesthesia/Blood Transfusion Reactions: Postoperative Nausea & Vomiting (PONV) Date of Last Stent Placement:: 07/31/23 Past Psychological History: No Psychological Hx Reported Smoking Status: Never smoker Past Alcohol Use History: Rare Past Drug Use History: None Reported - Past Family History Father Family Medical History: Cancer Additional Family Medical History / Comment(s): PROSTATE Medications and Allergies Home Medications Medication Instructions Recorded Confirmed Type Cetirizine HCl [Zyrtec] 10 mg PO DAILY 07/30/23 11/25/23 History Dulaglutide [Trulicity] 0.75 mg SQ TU 07/30/23 11/25/23 History Empagliflozin [Jardiance] 25 mg PO DAILY 07/30/23 11/25/23 History Fenofibrate Nanocrystallized 145 mg PO DAILY 07/30/23 11/25/23 History [Fenofibrate] lisinopriL [Zestril] 10 mg PO DAILY 07/30/23 11/25/23 History Aspirin 81 mg PO DAILY #90 tab 08/01/23 11/25/23 Rx Prasugrel [Effient] 10 mg PO DAILY #90 tab 08/01/23 11/25/23 Rx amLODIPine [Norvasc] 10 mg PO DAILY 30 Days #30 tab 09/03/23 11/25/23 Rx Atorvastatin [Lipitor] 20 mg PO HS 11/25/23 11/25/23 History Evolocumab [Repatha Sureclick] 140 mg SQ Q14D 11/25/23 11/25/23 History cod liver oiL [Cod Liver Oil] 1 cap PO DAILY 11/25/23 11/25/23 History metFORMIN HCL [Glucophage] 1,000 mg PO BID 11/25/23 11/25/23 History Acetaminophen Tab [Tylenol] 650 mg PO Q6HR PRN tab 11/26/23 Rx Ascorbic Acid [Vitamin C] 500 mg PO DAILY #30 tablet 11/26/23 Rx Cholecalciferol (Vitamin D3) 125 mcg PO DAILY #30 cap 11/26/23 Rx [Vitamin D3 (125 MCG = 5,000 IU)] Famotidine [Pepcid] 20 mg PO BID 15 Days #30 tablet 11/26/23 Rx Ondansetron Odt [Zofran Odt] 4 mg PO Q8HR PRN #6 tab 11/26/23 Rx Zinc Sulfate [Orazinc] 220 mg PO DAILY 15 Days #15 cap 11/26/23 Rx Allergies Allergy/AdvReac Type Severity Reaction Status Date / Time Sulfa (Sulfonamide Allergy Rash/Hives Verified 11/25/23 17:07 Antibiotics) Physical Exam Vitals: Vital Signs Temp Pulse Pulse Resp BP BP Pulse Ox 11/26/23 09:30 98.1 F 67 16 122/79 98 11/26/23 08:16 98.3 F 70 16 121/76 96 11/26/23 06:14 62 18 119/78 98 11/26/23 04:00 65 18 111/73 97 11/26/23 02:49 60 18 108/77 96 11/26/23 01:00 64 18 109/67 94 L 11/25/23 22:57 68 18 118/82 96 11/25/23 21:13 80 18 123/78 98 11/25/23 19:14 78 18 127/70 97 11/25/23 16:59 78 18 110/77 95 11/25/23 15:08 82 18 144/91 96 11/25/23 14:46 97.9 F 80 20 154/88 99 Intake and Output 11/25/23 11/26/23 11/26/23 22:59 06:59 14:59 Intake Total 118 Balance 118 Intake: Oral 118 Other: Weight 81.647 kg GENERAL DESCRIPTION: Middle-aged male up in the chair, no distress. No tachypnea or accessory muscle of respiration use. HEENT: Shows Pallor , no scleral icterus. Oral mucous membrane is dry. No pharyngeal erythema or thrush NECK: Trachea central, no thyromegaly. LUNGS: Unlabored breathing. Clear to auscultation anteriorly. No wheeze or crackle. HEART: S1, S2, regular rate and rhythm. No loud murmur ABDOMEN: Soft, no tenderness , guarding or rigidity, no organomegaly EXTREMITIES: No edema of feet. SKIN: No rash, no masses palpable. NEUROLOGICAL: The patient is awake, alert, oriented x3, mood and affect normal. Results CBC & Chem 7: 11/25/23 15:07 11/25/23 15:07 Labs: Abnormal Lab Results - Last 24 Hours (Table) 11/25/23 11/25/23 11/25/23 Range/Units 15:07 15:07 15:07 Plt Count 131 L (150-450) k/uL D-Dimer 1.03 H (<0.60) mg/L FEU Sodium 134 L (137-145) mmol/L BUN 29 H (9-20) mg/dL Glucose 167 H (74-99) mg/dL POC Glucose (mg/dL) (70-110) mg/dL Triglycerides (0.00-149.00) mg/dL LDL Cholesterol, Calc (0.0-131.0) mg/dL VLDL Cholesterol, Calc (5.00-40.00) mg/dL HDL Cholesterol (40.00-60.00) mg/dL 11/26/23 11/26/23 Range/Units 06:19 08:23 Plt Count (150-450) k/uL D-Dimer (<0.60) mg/L FEU Sodium (137-145) mmol/L BUN (9-20) mg/dL Glucose (74-99) mg/dL POC Glucose (mg/dL) 155 H (70-110) mg/dL Triglycerides 344.00 H (0.00-149.00) mg/dL LDL Cholesterol, Calc -26.8 L (0.0-131.0) mg/dL VLDL Cholesterol, Calc 68.80 H (5.00-40.00) mg/dL HDL Cholesterol 25.00 L (40.00-60.00) mg/dL Assessment and Plan (1) COVID-19 Status: Acute Code(s): U07.1 - COVID-19 SNOMED Code(s): 624119323 Plan: 1patient presented to hospital with increasing shortness of breath chest pain and this patient has been recently diagnosed with a COVID-19 in the outpatient setting however the patient currently not hypoxic or need for supplemental oxygen he did have a chest x-ray as well as CT angiogram of the chest did not shows any evidence of diffuse groundglass opacities suggestive of COVID-19 pneumonia 2treat will be mostly supportive and no need for remdesivir or steroid at this point Question concern answered We will follow on clinical condition and cultures to further adjust medication if needed Thank you for this consultation we will follow the patient along with you Dictation was produced using [employer] dictation software. please excuse any grammatical, word or spelling errors. Time with Patient: Greater than 30
[2023-11-27] MEDS ORDERED: Dulaglutide [Trulicity] 0.75 MG/0.5 ML Each SQ SCH (09:00)
[2023-11-27] MEDS ORDERED: ASPIRIN 81 MG PO SCH (09:00)
--- NOTE | 2023-11-27 11:09 | P.DS ---
Providers Date of admission: 11/25/23 16:37 Expected date of discharge: 11/26/23 Attending physician: Laura Bateman Consults: 11/25/23 16:35 Consult Physician Urgent Consulting Provider: Fabien Gold Consult Reason/Comments: chest pain Do you want consulting provider notified?: Yes 11/25/23 17:20 Consult Physician Routine Consulting Provider: Gloria Benites Consult Reason/Comments: covid, remdesivir? Do you want consulting provider notified?: Yes Primary care physician: Brijesh Lozano Hospital Course: Final diagnosis Chest pain, likely unstable angina, ACS ruled out per cardiology Acute COVID-19 infection with no respiratory compromise History of coronary artery disease with stenting previously Diabetes mellitus, type II History of sleep apnea GI prophylaxis DVT prophylaxis Full code Discharge disposition Patient is being discharged in a stable condition with guarded prognosis to home. patient will follow-up with Dr. Lozano in the outpatient setting upon disch arge. Patient is to continue with current medications and outpatient follow-up with cardiology as scheduled. Total time taken is greater than 35 minutes. Hospital course This is a 63-year-old male who was recently admitted with chest pain with cardiology following. ACS ruled out and adjustments to medications recommending outpatient follow-up with cardiology in the next 1 to 2 weeks. Patient was also noted to be COVID-19 positive a few days prior with no respiratory compromise. Infectious disease was consulted for recent COVID-19 positive result and no need for remdesivir or steroids recommending supportive care. Patient was started on zinc along with vitamin C and D and will give some Zofran as needed as patient is having occasional nausea. Patient has been cleared by cardiology. Please refer to cardiology note for further HPI. Currently no reports of chest pain, shortness of breath, or palpitations. Patient is afebrile. No reports of nausea or vomiting and patient is tolerating diet. Patient will be discharged home today. Physical exam: Gen: This is a 63-year-old male who is awake, alert and oriented x 3, well- developed, well-nourished HEENT: Head is atraumatic, normocephalic. Pupils equal, round. Sclerae is anicteric. NECK: Supple. No JVD. No lymphadenopathy. No thyromegaly. LUNGS: Clear to auscultation. No wheezes or rhonchi. No intercostal retractions. HEART: Regular rate and rhythm. No murmur. ABDOMEN: Soft. Bowel sounds are present. No masses. No tenderness. EXTREMITIES: No pedal edema. No calf tenderness. NEUROLOGICAL: Patient is awake, alert and oriented x3. Cranial nerves 2 through 12 are grossly intact. Please refer to medication reconciliation sheet for a list of medications. The impression and plan of care has been dictated by Linda Craven, Nurse Practitioner as directed. Tillman MD I have performed a history and examination and MDM of this patient, discussed the same with the dictator, and agree with the dictator's assessment and plan as written ,documented as a scribe. Based on total visit time, I have performed more than 50% of the visit. Patient Condition at Discharge: Fair Plan - Discharge Summary Discharge Rx Participant: No New Discharge Prescriptions: New Famotidine [Pepcid] 20 mg PO BID 15 Days #30 tablet Acetaminophen Tab [Tylenol] 650 mg PO Q6HR PRN tab PRN Reason: Fever And/ Or Pain Ondansetron Odt [Zofran Odt] 4 mg PO Q8HR PRN #6 tab PRN Reason: Nausea Zinc Sulfate [Orazinc] 220 mg PO DAILY 15 Days #15 cap Ascorbic Acid [Vitamin C] 500 mg PO DAILY #30 tablet Cholecalciferol (Vitamin D3) [Vitamin D3 (125 MCG = 5,000 IU)] 125 mcg PO DAILY #30 cap Continue Cetirizine HCl [Zyrtec] 10 mg PO DAILY Dulaglutide [Trulicity] 0.75 mg SQ TU lisinopriL [Zestril] 10 mg PO DAILY Aspirin 81 mg PO DAILY #90 tab amLODIPine [Norvasc] 10 mg PO DAILY 30 Days #30 tab Evolocumab [Repatha Sureclick] 140 mg SQ Q14D Atorvastatin [Lipitor] 20 mg PO HS Empagliflozin [Jardiance] 25 mg PO DAILY Fenofibrate Nanocrystallized [Fenofibrate] 145 mg PO DAILY Prasugrel [Effient] 10 mg PO DAILY #90 tab metFORMIN HCL [Glucophage] 1,000 mg PO BID cod liver oiL [Cod Liver Oil] 1 cap PO DAILY Discharge Medication List Cetirizine HCl [Zyrtec] 10 mg PO DAILY 07/30/23 [History] Dulaglutide [Trulicity] 0.75 mg SQ TU 07/30/23 [History] Empagliflozin [Jardiance] 25 mg PO DAILY 07/30/23 [History] Fenofibrate Nanocrystallized [Fenofibrate] 145 mg PO DAILY 07/30/23 [History] lisinopriL [Zestril] 10 mg PO DAILY 07/30/23 [History] Aspirin 81 mg PO DAILY #90 tab 08/01/23 [Rx] Prasugrel [Effient] 10 mg PO DAILY #90 tab 08/01/23 [Rx] amLODIPine [Norvasc] 10 mg PO DAILY 30 Days #30 tab 09/03/23 [Rx] Atorvastatin [Lipitor] 20 mg PO HS 11/25/23 [History] Evolocumab [Repatha Sureclick] 140 mg SQ Q14D 11/25/23 [History] cod liver oiL [Cod Liver Oil] 1 cap PO DAILY 11/25/23 [History] metFORMIN HCL [Glucophage] 1,000 mg PO BID 11/25/23 [History] Acetaminophen Tab [Tylenol] 650 mg PO Q6HR PRN tab 11/26/23 [Rx] Ascorbic Acid [Vitamin C] 500 mg PO DAILY #30 tablet 11/26/23 [Rx] Cholecalciferol (Vitamin D3) [Vitamin D3 (125 MCG = 5,000 IU)] 125 mcg PO DAILY #30 cap 11/26/23 [Rx] Famotidine [Pepcid] 20 mg PO BID 15 Days #30 tablet 11/26/23 [Rx] Ondansetron Odt [Zofran Odt] 4 mg PO Q8HR PRN #6 tab 11/26/23 [Rx] Zinc Sulfate [Orazinc] 220 mg PO DAILY 15 Days #15 cap 11/26/23 [Rx] Follow up Appointment(s)/Referral(s): Vinod Benoit MD [Medical Doctor] - 12/06/23 2:45 pm Brijesh Lozano [Primary Care Provider] - 1-2 days Patient Instructions/Handouts: Chest Pain (DC) Activity/Diet/Wound Care/Special Instructions: Activity limited until follow-up Follow-up with primary care discharge Follow-up with cardiology outpatient Continue taking medications as prescribed Discharge Disposition: HOME SELF-CARE
== END 2023-11-26 14:15 | disposition home or self-care (01) ==
LOC: EC 14:41 → 6NMEDSUR 16:37
PROVIDERS: ADMIT Hospitalist; ATTEND Hospitalist
DX: R07.9 Chest pain, unspecified (principal); U07.1 COVID-19; I25.10 Atherosclerotic heart disease of native coronary artery without angina pectoris; E11.9 Type 2 diabetes mellitus without complications; G47.30 Sleep apnea, unspecified; I10 Essential (primary) hypertension; E78.5 Hyperlipidemia, unspecified; R00.1 Bradycardia, unspecified; I25.2 Old myocardial infarction; Z95.5 Presence of coronary angioplasty implant and graft; Z79.84 Long term (current) use of oral hypoglycemic drugs; Z79.85 Long-term (current) use of injectable non-insulin antidiabetic drugs; Z79.899 Other long term (current) drug therapy; Z79.82 Long term (current) use of aspirin; Z79.02 Long term (current) use of antithrombotics/antiplatelets; Z88.2 Allergy status to sulfonamides
CPT/HCPCS: 96372; 99285; 36415; 93005; 85379; 83880; 80061; 80053; 83735; 84484; 85025; 85610; 85730; 71046; 71275; G0378 ×2; J1650; Q9967; J2470 ×2

== ENCOUNTER → 2024-01-08 | Outpatient (CLI) | payer OTHER ==
[2024-01-08 15:13] VITALS: BP 119/72; PULSE 78; RESP 16; TEMP 98.8
--- NOTE | 2024-01-08 15:43 | P.SLEEP ---
History of Present Illness H&P Date: 01/08/24 Chief Complaint: VERONICA The patient, known history of obstructive sleep apnea, severe with an AHI of 35 who has been treated with a CPAP pressure of 9 cm of water. He is still utilizing an older generation ResMed S9 series and he has been using the DreamWear nasal mask, under the nose. Noted over the years, the patient has lost considerable amount of weight. During his last evaluation back in 2019, used to weigh 216 pounds and currently is down to 191 pounds. He is having difficulties with his current pressure setting and the patient came in for evaluation. Nevertheless, has been extremely compliant with his CPAP and the patient reports that his snoring and apneas recur immediately once of the CPAP machine. He has also snoring. He goes to bed around 11 PM wakes up 6 AM in the morning. No major hypersomnia or sleepiness as long as he has an CPAP machine on. The patient wakes a few times the middle of the night to utilize the bathroom. He has occasional dream related movements that are not violence. No sleep paralysis. No hallucinations. No cataplexy. No history of any motor vehicle accidents because of feeling drowsy or sleepy. He is diabetic and recently was involved in a myocardial event requiring immediate angioplasty and stenting. He has history of hypertension along with diabetes mellitus and hyperlipidemia and fatty liver disease. He is very much interested for evaluation and updating his CPAP unit. Review of Systems Constitutional: Reports daytime sleepiness, Reports weight loss Eyes: denies as per HPI, denies blurred vision, denies bulging eye, denies decreased vision, denies diplopia, denies discharge, denies dry eye, denies irritation, denies itching, denies pain, denies photophobia, denies loss of peripheral vision, denies loss of vision, denies tunnel vision/blind spots Ears: deny: decreased hearing, ear discharge, earache, tinnitus Ears, nose, mouth and throat: Reports as per HPI Breasts: absent: as per HPI, gynecomastia Cardiovascular: Reports as per HPI Respiratory: Reports sleep apnea, Reports snoring Gastrointestinal: Reports as per HPI Genitourinary: Reports as per HPI Musculoskeletal: Reports as per HPI Musculoskeletal: absent: ankle pain, ankle stiffness, ankle swelling, as per HPI, elbow pain, elbow stiffness, elbow swelling, foot pain, foot stiffness, foot swelling, hand pain, hand stiffness, hand swelling, hip pain, hip stiffness, hip swelling, knee pain, knee stiffness, knee swelling, shoulder pain, shoulder stiffness, shoulder swelling, wrist pain, wrist stiffness, wrist swelling Integumentary: Reports as per HPI Neurological: Reports as per HPI Psychiatric: Reports as per HPI Endocrine: Reports as per HPI Hematologic/Lymphatic: Reports as per HPI Allergic/Immunologic: Reports as per HPI Past Medical History Past Medical History: Coronary Artery Disease (CAD), Diabetes Mellitus, Hyperlipidemia, Hypertension, Liver Disease, Osteoarthritis (OA), Sleep Apnea/CPAP/BIPAP Additional Past Medical History / Comment(s): CURRENTLY DIET CONTROL DIABETES. STATES STOPPED ALL DIABETIC MEDS ABOUT 2 MONTHS AGO BECUASE NOTHING WAS WORKING. STATES THAT CBG STAYS ABOUT 240. fatty liver, had covid November 22, 2023 was hospitalized Nov 24 Last Myocardial Infarction Date:: 07/31/23 History of Any Multi-Drug Resistant Organisms: None Reported Past Surgical History: Heart Catheterization With Stent, Orthopedic Surgery Additional Past Surgical History / Comment(s): LT ELBOW DENERVATION. BACK IN JECTIONS. COLONOSOCPY, right and left shoulder rotator cuff repairs Past Anesthesia/Blood Transfusion Reactions: Postoperative Nausea & Vomiting (PONV) Date of Last Stent Placement:: 07/31/23 Past Psychological History: No Psychological Hx Reported Smoking Status: Never smoker Past Alcohol Use History: Rare Past Drug Use History: None Reported - Past Family History Father Family Medical History: Cancer Additional Family Medical History / Comment(s): PROSTATE Mother Family Medical History: Coronary Artery Disease (CAD), Hyperlipidemia, Sleep Apnea/CPAP/BIPAP Additional Family Medical History / Comment(s): snoring Medications and Allergies Home Medications Medication Instructions Recorded Confirmed Type Cetirizine HCl [Zyrtec] 10 mg PO DAILY 07/30/23 11/25/23 History Dulaglutide [Trulicity] 0.75 mg SQ TU 07/30/23 01/08/24 History Empagliflozin [Jardiance] 25 mg PO DAILY 07/30/23 01/08/24 History Fenofibrate Nanocrystallized 145 mg PO DAILY 07/30/23 01/08/24 History [Fenofibrate] lisinopriL [Zestril] 10 mg PO DAILY 07/30/23 01/08/24 History Aspirin 81 mg PO DAILY #90 tab 08/01/23 01/08/24 Rx Prasugrel [Effient] 10 mg PO DAILY #90 tab 08/01/23 01/08/24 Rx amLODIPine [Norvasc] 10 mg PO DAILY 30 Days #30 tab 09/03/23 01/08/24 Rx Atorvastatin [Lipitor] 20 mg PO HS 11/25/23 11/25/23 History Evolocumab [Repatha Sureclick] 140 mg SQ Q14D 11/25/23 01/08/24 History cod liver oiL [Cod Liver Oil] 1 cap PO DAILY 11/25/23 01/08/24 History metFORMIN HCL [Glucophage] 1,000 mg PO BID 11/25/23 01/08/24 History Acetaminophen Tab [Tylenol] 650 mg PO Q6HR PRN tab 11/26/23 01/08/24 Rx Ascorbic Acid [Vitamin C] 500 mg PO DAILY #30 tablet 11/26/23 Rx Cholecalciferol (Vitamin D3) 125 mcg PO DAILY #30 cap 11/26/23 Rx [Vitamin D3 (125 MCG = 5,000 IU)] Famotidine [Pepcid] 20 mg PO BID 15 Days #30 tablet 11/26/23 Rx Ondansetron Odt [Zofran Odt] 4 mg PO Q8HR PRN #6 tab 11/26/23 Rx Zinc Sulfate [Orazinc] 220 mg PO DAILY 15 Days #15 cap 11/26/23 Rx Allergies Allergy/AdvReac Type Severity Reaction Status Date / Time Sulfa (Sulfonamide Allergy Rash/Hives Verified 11/25/23 17:07 Antibiotics) Physical Exam Vitals: Vital Signs Temp Pulse Resp BP Pulse Ox 01/08/24 15:12 98.8 F 78 16 119/72 96 Intake and Output 01/08/24 01/08/24 01/08/24 06:59 14:59 22:59 Other: Weight 86.636 kg The patient appeared well nourished and normally developed. Vital signs as documented. Head exam is unremarkable. No scleral icterus or corneal arcus noted. Neck is without jugular venous distension, thyromegaly, or carotid bruits. Carotid upstrokes are brisk bilaterally. Lungs are clear to auscultation and percussion. Cardiac exam reveals the PMI to be normally sized and situated. Rhythm is regular. First and second heart sounds normal. No murmurs, rubs or gallops. Abdominal exam reveals normal bowel sounds, no masses, no organomegaly and no aortic enlargement. Extremities are nonedematous and both femoral and pedal pulses are normal. Examination of the skin revealed no evidence of significant rashes, suspicious appearing nevi or other concerning lesions. Neurologically, the patient is awake and alert and the patient does not have any focal neurological deficit. Cranial nerves are essentially intact. Assessment and Plan Plan: Obstructive sleep apnea, severe at baseline with an AHI of 35 based on a study that was done in 2019 and the patient has been successfully treated with a CPAP pressure of 9 cm of water. The patient is coming in for evaluation. Since his updating his CPAP machine and is currently utilizing an older generation ResMed S9 series. He has lost consider amount of weight in addition. He continues to benefit from CPAP therapy. However, he is having difficulty tolerating the current pressure specially with his ongoing weight loss. Hypersomnia, recovered with CPAP therapy Coronary artery disease with recent cardiac catheterization and stenting of the RCA Asystol recent hospitalization for a asystole attributed to a vasovagal event Hypertension Hyperlipidemia Diabetes mellitus type 2 Fatty liver disease Plan The patient clearly has some residual obstructive sleep apnea. The patient would benefit from ongoing CPAP therapy. I think is reasonable to upgrade his CPAP machine to a newer generation ResMed 11. I am going to order a home sleep study to reevaluate the presence and severity of his sleep apnea. Based on the results, the patient will be offered a APAP unit with the same mask interface and the patient is currently using a DreamWear under the nose nasal mask. Weight is stable. Continue treating his coronary artery disease and tight control of cardiovascular risk factors. Will continue to follow. Sleep Note - Sleep Data ESS Total: 4 - Sleep Note Sleep Note: Temperature: 98.8 F Pulse Rate: 78 Respiratory Rate: 16 Blood Pressure: 119/72 SpO2: 96 Height: 6 ft Weight: 86.636 kg BMI: Neck Circumference: 16
== END ==
LOC: 3 N SLEEP 14:26
PROVIDERS: ATTEND Internal Medicine Critical Care Medicine
DX: G47.33 Obstructive sleep apnea (adult) (pediatric) (principal); G47.10 Hypersomnia, unspecified; I25.10 Atherosclerotic heart disease of native coronary artery without angina pectoris; I10 Essential (primary) hypertension; E78.5 Hyperlipidemia, unspecified; E11.9 Type 2 diabetes mellitus without complications; K76.0 Fatty (change of) liver, not elsewhere classified; I46.9 Cardiac arrest, cause unspecified; R63.4 Abnormal weight loss; Z88.2 Allergy status to sulfonamides; Z68.25 Body mass index [BMI] 25.0-25.9, adult; Z79.85 Long-term (current) use of injectable non-insulin antidiabetic drugs; Z79.84 Long term (current) use of oral hypoglycemic drugs; Z79.899 Other long term (current) drug therapy
CPT/HCPCS: 99211

== ENCOUNTER → 2024-01-16 | Outpatient (CLI) | payer OTHER ==
--- NOTE | 2024-01-21 18:32 | P.PCN ---
Date of Procedure: 01/16/24 Operative Findings: Home sleep study testing History The patient, known history of obstructive sleep apnea, severe with an AHI of 35 who has been treated with a CPAP pressure of 9 cm of water. He is still utilizing an older generation ResMed S9 series and he has been using the DreamWear nasal mask, under the nose. Noted over the years, the patient has lost considerable amount of weight. During his last evaluation back in 2019, used to weigh 216 pounds and currently is down to 191 pounds. He is having difficulties with his current pressure setting and the patient came in for evaluation. Nevertheless, has been extremely compliant with his CPAP and the patient reports that his snoring and apneas recur immediately once of the CPAP machine. He has also snoring. He goes to bed around 11 PM wakes up 6 AM in the morning. No major hypersomnia or sleepiness as long as he has an CPAP machine on. The patient wakes a few times the middle of the night to utilize the bathroom. He has occasional dream related movements that are not violence. No sleep paralysis. No hallucinations. No cataplexy. No history of any motor vehicle accidents because of feeling drowsy or sleepy. He is diabetic and recently was involved in a myocardial event requiring immediate angioplasty and stenting. He has history of hypertension along with diabetes mellitus and hyperlipidemia and fatty liver disease. He is very much interested for evaluation and updating his CPAP unit. Pertinent physical findings The patient has a body mass index of 25.9. Weight is 191 pounds Technical description The ResMed ApneaLink system was used to complete his home sleep study. This is a type III home sleep study evaluation. Total recording duration was 9 hours and 40 minutes. The study started at 10:10 PM and ended at 7:51 AM. There was a total of 9 hours and 28 minutes of flow monitoring at 8 hours and 49 minutes of oxygen saturation monitoring. This was an adequate study Results The respiratory analysis showed a total of 14 obstructive apneas and 68 obstructive hypopneas. The resulting AHI was 8.6, slightly worsened in supine body position with an AHI of 12 while being supine Oxygenation analysis The baseline pulse ox while awake was 94%. Average pulse ox during sleep was 94%. Lowest pulse ox was 68% and the patient spent approximately 1 hours and 30 minutes of sleep time below pulse ox of 89%. Cardiac summary The average heart rate was 68 with a minimum heart rate of 57 and a maximum heart rate of 173 Assessment Obstructive sleep apnea which is mild in severity with an AHI of 8.6, worsening supine body position. Noted the patient is known to have history of severe VERONICA with an AHI of 35 based on a study that was done in 2019 and the patient has been successfully treated with a CPAP pressure of 9 cm of water. The patient is currently utilizing an older generation ResMed S9 series. He has lost consider amount of weight in addition. He continues to benefit from CPAP therapy. However, he is having difficulty tolerating the current pressure specially with his ongoing weight loss. Hypersomnia, recovered with CPAP therapy Coronary artery disease with recent cardiac catheterization and stenting of the RCA Asystol recent hospitalization for a asystole attributed to a vasovagal event Hypertension Hyperlipidemia Diabetes mellitus type 2 Fatty liver disease Plan The patient's disease severity is improved considerably with weight loss. He does have some mild residual obstructive sleep apnea with an AHI of 8.6, worse in the supine body position. The patient interested in continuing CPAP therapy. Based on that, I am going to upgrade his CPAP machine to a newer generation ResMed 11. I will offer a APAP unit at a pressure of 5/15 cm of water with the same mask interface and the patient is currently using a DreamWear under the nose nasal mask. Weight is stable. Continue treating his coronary artery disease and tight control of cardiovascular risk factors. The patient will see me back in the office in 30 to 90 days to assess clinical response and acosta thorpe
== END ==
LOC: 3 N SLEEP 17:00
PROVIDERS: ATTEND Internal Medicine Critical Care Medicine
DX: G47.33 Obstructive sleep apnea (adult) (pediatric) (principal); I10 Essential (primary) hypertension; E78.5 Hyperlipidemia, unspecified; E11.9 Type 2 diabetes mellitus without complications; K76.0 Fatty (change of) liver, not elsewhere classified; I25.10 Atherosclerotic heart disease of native coronary artery without angina pectoris; Z95.5 Presence of coronary angioplasty implant and graft; Z99.89 Dependence on other enabling machines and devices; Z88.2 Allergy status to sulfonamides

== ENCOUNTER → 2024-01-18 | Outpatient (CLI) | payer OTHER ==
[2024-01-18 15:50] LABS: BUN/Creat Ratio 24.45 Ratio (12.00-20.00); Blood Urea Nitrogen 26.9 mg/dL (9.0-27.0); Chloride 103 mmol/L (96-109); Chol/HDL Ratio 4.16 Ratio; Glucose 136 mg/dL (70-110); LDL Cholesterol,Calculated 82.8 mg/dL (0.0-131.0); Potassium 5.3 mmol/L (3.5-5.5); Sodium 140 mmol/L (135-145)
[2024-01-18 15:51] LABS: ALT 25 U/L (10-49); AST 27 U/L (14-35); Albumin 4.6 g/dL (3.8-4.9); Albumin/Globulin Ratio 2.19 Ratio (1.60-3.17); Alkaline Phosphatase 43 U/L (41-126); Calcium 10.5 mg/dL (8.7-10.3); Globulin 2.1 g/dL (1.6-3.3); Total Bilirubin 0.4 mg/dL (0.3-1.2); Total Protein 6.7 g/dL (6.2-8.2)
[2024-01-18 19:15] LABS: Microalbumin Creatinine Ratio <17 mg/g Cr (0-30); Urine Creatinine 70.3 mg/dL (39.0-259.0)
== END | disposition home or self-care (01) ==
LOC: LABWHC1 08:12
PROVIDERS: ATTEND Internal Medicine Endocrinology, Diabetes & Metabolism
DX: E11.65 Type 2 diabetes mellitus with hyperglycemia (principal)
CPT/HCPCS: 36415; 80053; 80061; 82043; 82570; 83036; 84443

== ENCOUNTER 2024-02-27 09:58 | Observation (INO) | payer MEDICARE, OTHER ==
--- NOTE | 2024-02-27 10:21 | ED ---
General Adult HPI - General Chief complaint: Chest Pain Stated complaint: Chest Pain Time Seen by Provider: 02/27/24 10:08 Source: patient, RN notes reviewed, old records reviewed Mode of arrival: wheelchair Limitations: no limitations - History of Present Illness Initial comments: 64-year-old male presenting for evaluation of chest discomfort. Symptoms began yesterday as indigestion in the epigastrium. He states that he had previous coronary artery disease with stenting in July of this year. He is compliant with his medications. He states he did feel somewhat lightheaded associated with the chest discomfort that began this morning. No vomiting. No fever. No cough. - Related Data Home Medications Medication Instructions Recorded Confirmed Cetirizine HCl [Zyrtec] 10 mg PO DAILY 07/30/23 11/25/23 Dulaglutide [Trulicity] 0.75 mg SQ TU 07/30/23 01/08/24 Empagliflozin [Jardiance] 25 mg PO DAILY 07/30/23 01/08/24 Fenofibrate Nanocrystallized 145 mg PO DAILY 07/30/23 01/08/24 [Fenofibrate] lisinopriL [Zestril] 10 mg PO DAILY 07/30/23 01/08/24 Atorvastatin [Lipitor] 20 mg PO HS 11/25/23 11/25/23 Evolocumab [Repatha Sureclick] 140 mg SQ Q14D 11/25/23 01/08/24 cod liver oiL [Cod Liver Oil] 1 cap PO DAILY 11/25/23 01/08/24 metFORMIN HCL [Glucophage] 1,000 mg PO BID 11/25/23 01/08/24 Previous Rx's Medication Instructions Recorded Aspirin 81 mg PO DAILY #90 tab 08/01/23 Prasugrel [Effient] 10 mg PO DAILY #90 tab 08/01/23 amLODIPine [Norvasc] 10 mg PO DAILY 30 Days #30 tab 09/03/23 Acetaminophen Tab [Tylenol] 650 mg PO Q6HR PRN tab 11/26/23 Ascorbic Acid [Vitamin C] 500 mg PO DAILY #30 tablet 11/26/23 Cholecalciferol (Vitamin D3) 125 mcg PO DAILY #30 cap 11/26/23 [Vitamin D3 (125 MCG = 5,000 IU)] Famotidine [Pepcid] 20 mg PO BID 15 Days #30 tablet 11/26/23 Ondansetron Odt [Zofran Odt] 4 mg PO Q8HR PRN #6 tab 11/26/23 Zinc Sulfate [Orazinc] 220 mg PO DAILY 15 Days #15 cap 11/26/23 Allergies Allergy/AdvReac Type Severity Reaction Status Date / Time Sulfa (Sulfonamide Allergy Rash/Hives Verified 02/27/24 10:31 Antibiotics) Review of Systems ROS Statement: Those systems with pertinent positive or pertinent negative responses have been documented in the HPI. ROS Other: All systems not noted in ROS Statement are negative. Past Medical History Past Medical History: Coronary Artery Disease (CAD), Diabetes Mellitus, Hyperlipidemia, Hypertension, Liver Disease, Osteoarthritis (OA), Sleep Apnea/CPAP/BIPAP Additional Past Medical History / Comment(s): CURRENTLY DIET CONTROL DIABETES. STATES STOPPED ALL DIABETIC MEDS ABOUT 2 MONTHS AGO BECUASE NOTHING WAS WORKING. STATES THAT CBG STAYS ABOUT 240. fatty liver, had covid November 22, 2023 was hospitalized Nov 24 Last Myocardial Infarction Date:: 07/31/23 History of Any Multi-Drug Resistant Organisms: None Reported Past Surgical History: Heart Catheterization With Stent, Orthopedic Surgery Additional Past Surgical History / Comment(s): LT ELBOW DENERVATION. BACK INJECTIONS. COLONOSOCPY, right and left shoulder rotator cuff repairs Past Anesthesia/Blood Transfusion Reactions: Postoperative Nausea & Vomiting (PONV) Date of Last Stent Placement:: 07/31/23 Past Psychological History: No Psychological Hx Reported Smoking Status: Never smoker Past Alcohol Use History: Rare Past Drug Use History: None Reported - Past Family History Father Family Medical History: Cancer Additional Family Medical History / Comment(s): PROSTATE Mother Family Medical History: Coronary Artery Disease (CAD), Hyperlipidemia, Sleep Apnea/CPAP/BIPAP Additional Family Medical History / Comment(s): snoring General Exam Limitations: no limitations General appearance: alert, in no apparent distress Head exam: Present: atraumatic, normocephalic Eye exam: Present: normal appearance, PERRL ENT exam: Present: normal exam Neck exam: Present: normal inspection. Absent: tenderness, meningismus Respiratory exam: Present: normal lung sounds bilaterally. Absent: respiratory distress, wheezes Cardiovascular Exam: Present: regular rate, normal rhythm GI/Abdominal exam: Present: soft. Absent: distended, tenderness, guarding Extremities exam: Present: normal inspection, normal capillary refill. Absent: calf tenderness Neurological exam: Present: alert, oriented X3, CN II-XII intact. Absent: motor sensory deficit Course Vital Signs 02/27/24 02/27/24 10:03 10:12 Temperature 97.3 F L Pulse Rate 76 81 Respiratory 20 20 Rate Blood Pressure 182/104 204/108 O2 Sat by Pulse 100 100 Oximetry Medical Decision Making - Medical Decision Making Was pt. sent in by a medical professional or institution (, [facility], [employer], urgent care, hospital, or group home...) When possible be specific @ -No Did you speak to anyone other than the patient for history (EMS, parent, family, police, friend...)? What history was obtained from this source @ -No Did you review nursing and triage notes (agree or disagree)? Why? @ -I reviewed and agree with nursing and triage notes Were old charts reviewed (outside hosp., previous admission, EMS record, old EKG, old radiological studies, urgent care reports/EKG's, group home records)? Report findings @ -No old charts were reviewed Differential Chest Pain: Stable Angina, Unstable Angina, STEMI, NSTEMI Aortic Dissection, Pneumothorax, Musculoskeletal, Esophageal Spasm GERD, Cholecystitis, Pancreatitis, Zoster, this is not meant to be an all-inclusive list. EKG interpreted by me (3pts min.). @Sinus rhythm first-degree AV block, rate of 78, TX interval 230, QRS duration 109, QTc [address] segment elevation. X-rays interpreted by me (1pt min.). @Chest x-ray is clear CT interpreted by me (1pt min.). @ -None done U/S interpreted by me (1pt. min.). @ -None done What testing was considered but not performed or refused? (CT, X-rays, U/S, labs)? Why? @ -None What meds were considered but not given or refused? Why? @ -None Did you discuss the management of the patient with other professionals (professionals i.e. [facility] Cavazos, [employer], lab, RT, psych nurse, director social service, industrial organization manager, teacher, duty officer, machine adjuster leader case trim)? Give summary @ - Sheet Was smoking cessation discussed for >3mins.? @ -No Was critical care preformed (if so, how long)? @ -No Were there social determinants of health that impacted care today? How? (Homelessness, low income, unemployed, alcoholism, drug addiction, transportation, low edu. Level, literacy, decrease access to med. care, shelter, re hab)? @ -No Was there de-escalation of care discussed even if they declined (Discuss DNR or withdrawal of care, Hospice)? DNR status @ -No What co-morbidities impacted this encounter? (DM, HTN, Smoking, COPD, CAD, Cancer, CVA, ARF, Chemo, Hep., AIDS, mental health diagnosis, sleep apnea, morbid obesity)? @ -[History of CAD Was patient admitted / discharged? Hospital course, mention meds given and route, prescriptions, significant lab abnormalities, going to OR and other pertinent info. @ -64-year-old male presenting with chest discomfort. Patient's EKG is sinus rhythm without ST segment elevation. Chest x-ray is clear. He has a normal CBC, normal CMP, negative initial troponin. Given his risk factors and current symptoms he will be observed for serial cardiac enzymes, telemetry, cardiology consultation. Undiagnosed new problem with uncertain prognosis? @ -No Drug Therapy requiring intensive monitoring for toxicity (Heparin, Nitro, Insulin, Cardizem)? @ -No Were any procedures done? @ -No Diagnosis/symptom? @ -[Chest pain rule out Acute, or Chronic, or Acute on Chronic? @ -Acute Uncomplicated (without systemic symptoms) or Complicated (systemic symptoms)? @ -[default Side effects of treatment? @ -No Exacerbation, Progression, or Severe Exacerbation? @ -No Poses a threat to life or bodily function? How? (Chest pain, USA, ME, pneumonia, PE, COPD, DKA, ARF, appy, cholecystitis, CVA, Diverticulitis, Homicidal, Suicidal, threat to staff... and all critical care pts) @ -Yes, ME, ACS, arrhythmia - Lab Data Result diagrams: 02/27/24 10:18 02/27/24 10:18 Lab Results 02/27/24 02/27/24 02/27/24 Range/Units 10:18 10:18 10:18 WBC 5.6 (3.8-10.6) k/uL RBC 5.33 (4.30-5.90) m/uL Hgb 17.6 H (13.0-17.5) gm/dL Hct 49.4 (39.0-53.0) % MCV 92.6 (80.0-100.0) fL MCH 33.0 (25.0-35.0) pg MCHC 35.7 (31.0-37.0) g/dL RDW 12.6 (11.5-15.5) % Plt Count 134 L (150-450) k/uL MPV 9.6 Neutrophils % 63 % Lymphocytes % 25 % Monocytes % 6 % Eosinophils % 2 % Basophils % 1 % Neutrophils # 3.5 (1.3-7.7) k/uL Lymphocytes # 1.4 (1.0-4.8) k/uL Monocytes # 0.3 (0-1.0) k/uL Eosinophils # 0.1 (0-0.7) k/uL Basophils # 0.0 (0-0.2) k/uL PT 10.7 (10.0-12.5) sec INR 1.0 (<1.2) APTT 22.4 (22.0-30.0) sec Sodium 136 L (137-145) mmol/L Potassium 4.3 (3.5-5.1) mmol/L Chloride 101 (98-107) mmol/L Carbon Dioxide 20 L (22-30) mmol/L Anion Gap 15 mmol/L BUN 26 H (9-20) mg/dL Creatinine 1.07 (0.66-1.25) mg/dL Est GFR (CKD-EPI)AfAm 86 (>60 ml/min/1.73 sqM) Est GFR (CKD-EPI)NonAf 74 (>60 ml/min/1.73 sqM) Glucose 170 H (74-99) mg/dL Calcium 10.4 H (8.4-10.2) mg/dL Magnesium 2.2 (1.6-2.3) mg/dL Total Bilirubin 0.6 (0.2-1.3) mg/dL AST 29 (17-59) U/L ALT 32 (4-49) U/L Alkaline Phosphatase 48 (38-126) U/L Troponin I (0.000-0.034) ng/mL Total Protein 7.9 (6.3-8.2) g/dL Albumin 5.4 H (3.5-5.0) g/dL Lipase 140 (23-300) U/L 02/27/24 Range/Units 10:18 WBC (3.8-10.6) k/uL RBC (4.30-5.90) m/uL Hgb (13.0-17.5) gm/dL Hct (39.0-53.0) % MCV (80.0-100.0) fL MCH (25.0-35.0) pg MCHC (31.0-37.0) g/dL RDW (11.5-15.5) % Plt Count (150-450) k/uL MPV Neutrophils % % Lymphocytes % % Monocytes % % Eosinophils % % Basophils % % Neutrophils # (1.3-7.7) k/uL Lymphocytes # (1.0-4.8) k/uL Monocytes # (0-1.0) k/uL Eosinophils # (0-0.7) k/uL Basophils # (0-0.2) k/uL PT (10.0-12.5) sec INR (<1.2) APTT (22.0-30.0) sec Sodium (137-145) mmol/L Potassium (3.5-5.1) mmol/L Chloride (98-107) mmol/L Carbon Dioxide (22-30) mmol/L Anion Gap mmol/L BUN (9-20) mg/dL Creatinine (0.66-1.25) mg/dL Est GFR (CKD-EPI)AfAm (>60 ml/min/1.73 sqM) Est GFR (CKD-EPI)NonAf (>60 ml/min/1.73 sqM) Glucose (74-99) mg/dL Calcium (8.4-10.2) mg/dL Magnesium (1.6-2.3) mg/dL Total Bilirubin (0.2-1.3) mg/dL AST (17-59) U/L ALT (4-49) U/L Alkaline Phosphatase (38-126) U/L Troponin I <0.012 (0.000-0.034) ng/mL Total Protein (6.3-8.2) g/dL Albumin (3.5-5.0) g/dL Lipase (23-300) U/L Disposition Clinical Impression: Chest pain Disposition: ADMITTED IP TO THIS HOSP Condition: Stable Is patient prescribed a controlled substance at d/c from ED?: No Referrals: Jessie Tesfaye DO [Primary Care Provider] - 1-2 days Time of Disposition: 11:18
[2024-02-27] MEDS: PANTOPRAZOLE 40 MG/10 ML VIAL IVP STA (10:26)
[2024-02-27 10:44] LABS: Basophils % (A) 1 %; Eosinophils # (A) 0.1 k/uL (0-0.7); Eosinophils % (A) 2 %; HCT 49.4 % (39.0-53.0); HGB 17.6 gm/dL (13.0-17.5); Lymphocytes # (A) 1.4 k/uL (1.0-4.8); Lymphocytes % (A) 25 %; MCHC 35.7 g/dL (31.0-37.0); MCV 92.6 fL (80.0-100.0); Mean Platelet Volume 9.6; Monocytes # (A) 0.3 k/uL (0-1.0); Monocytes % (A) 6 %; Neutrophils # (A) 3.5 k/uL (1.3-7.7); Neutrophils % (A) 63 %; Platelet Count 134 k/uL (150-450); RBC 5.33 m/uL (4.30-5.90); RDW 12.6 % (11.5-15.5); WBC 5.6 k/uL (3.8-10.6)
[2024-02-27 10:53] LABS: Partial Thromboplastin Time 22.4 sec (22.0-30.0); Prothrombin Time 10.7 sec (10.0-12.5)
[2024-02-27 10:54] LABS: ALT 32 U/L (4-49); AST 29 U/L (17-59); African American GFR (CKD) 86 (>60 ml/min/1.73 sqM); Albumin 5.4 g/dL (3.5-5.0); Alkaline Phosphatase 48 U/L (38-126); Anion Gap 15 mmol/L; Blood Urea Nitrogen 26 mg/dL (9-20); Calcium 10.4 mg/dL (8.4-10.2); Carbon Dioxide 20 mmol/L (22-30); Chloride 101 mmol/L (98-107); Glucose 170 mg/dL (74-99); Lipase 140 U/L (23-300); Magnesium 2.2 mg/dL (1.6-2.3); Non-African American GFR(CKD) 74 (>60 ml/min/1.73 sqM); Potassium 4.3 mmol/L (3.5-5.1); Sodium 136 mmol/L (137-145); Total Bilirubin 0.6 mg/dL (0.2-1.3); Total Protein 7.9 g/dL (6.3-8.2)
--- NOTE | 2024-02-27 11:02 | XR ---
EXAMINATION TYPE: XR chest 2V DATE OF EXAM: 02/27/2024 10:50 AM COMPARISON: Chest x-ray November 25, 2023 CLINICAL INDICATION: Male, 64 years old with history of Chest Pain, TECHNIQUE: Frontal and lateral views of the chest are obtained. FINDINGS: There is no focal air space opacity, pleural effusion, or pneumothorax seen. The cardiac silhouette size is stable and within normal limits. The osseous structures are intact. Overlying EK G leads are seen. IMPRESSION: No acute process. [facility], , 02/27/2024 11:00 AM
[2024-02-27] MEDS ORDERED: NALOXONE 0.4 MG/ML 1 ML VIAL IV PRN (11:18)
[2024-02-27] MEDS ORDERED: ACETAMINOPHEN TAB 325 MG TAB PO PRN (11:18)
[2024-02-27] MEDS: SODIUM CHLORIDE 0.9% 500 ML 500 ML IV ONE (11:28)
[2024-02-27] MEDS ORDERED: NITROGLYCERIN SL TABS 0.4 MG TAB SUBLINGUAL PRN (12:42)
[2024-02-27] MEDS: lisinopriL 10 MG TAB PO SCH (13:24)
[2024-02-27] MEDS: amLODIPine 5 MG TAB PO SCH (13:25)
[2024-02-27] MEDS ORDERED: hydrALAZINE HCL 20 MG/ML 1 ML VIAL IVP PRN (13:40)
--- NOTE | 2024-02-27 13:40 | P.HPIM ---
History of Present Illness This is a pleasant 64 years old male who presents because of chest pain started yesterday Pain is on the right side next to the middle about 4/10 in severity felt like achy pain patient states the pain comes and goes with no obvious precipitating or relieving factors Patient says he was little short of breath Also has mild headache but no dizziness weakness or numbness No specific GI/ symptom Patient has history of coronary artery disease status post stent last August, currently he is compliant with aspirin and Plavix he takes every day. He denies smoking or illicit drugs, he drinks alcohol occasionally Blood pressure was elevated on admission 200/108 and currently 182/103 He is afebrile Has unremarkable CBC, BMP, LFT, INR and troponin Chest x-ray is negative for acute process EKG showing sinus rhythm at [address] changes Review of Systems Review of systems CONSTITUTIONAL: No fever, no malaise, no fatigue. HEENT: No recent visual problems or hearing problems. Denied any sore throat. CARDIOVASCULAR: No orthopnea, PND, no palpitations, no syncope. PULMONARY: No shortness of breath, no cough, no hemoptysis. GASTROINTESTINAL: No diarrhea, no nausea, no vomiting, no abdominal pain. Normoactive bowel sounds. NEUROLOGICAL: No headaches, no weakness, no numbness. HEMATOLOGICAL: Denies any bleeding or petechiae. GENITOURINARY: Denies any burning micturition, frequency, or urgency. MUSCULOSKELETAL/RHEUMATOLOGICAL: Denies any joint pain, swelling, or any muscle pain. ENDOCRINE: Denies any polyuria or polydipsia. Past Medical History Past Medical History: Coronary Artery Disease (CAD), Diabetes Mellitus, Hyperlipidemia, Hypertension, Liver Disease, Osteoarthritis (OA), Sleep Apnea/CPAP/BIPAP Additional Past Medical History / Comment(s): CURRENTLY DIET CONTROL DIABETES. STATES STOPPED ALL DIABETIC MEDS ABOUT 2 MONTHS AGO BECUASE NOTHING WAS WORKING. STATES THAT [facility] [place] STAYS ABOUT 240. fatty liver, had covid November 22, 2023 was hospitalized Nov 24 Last Myocardial Infarction Date:: 07/31/23 History of Any Multi-Drug Resistant Organisms: None Reported Past Surgical History: Heart Catheterization With Stent, Orthopedic Surgery Additional Past Surgical History / Comment(s): LT ELBOW DENERVATION. BACK INJECTIONS. COLONOSOCPY, right and left shoulder rotator cuff repairs Past Anesthesia/Blood Transfusion Reactions: Postoperative Nausea & Vomiting (PONV) Date of Last Stent Placement:: 07/31/23 Past Psychological History: No Psychological Hx Reported Smoking Status: Never smoker Past Alcohol Use History: Rare Past Drug Use History: None Reported - Past Family History Father Family Medical History: Cancer Additional Family Medical History / Comment(s): PROSTATE Mother Family Medical History: Coronary Artery Disease (CAD), Hyperlipidemia, Sleep Apnea/CPAP/BIPAP Additional Family Medical History / Comment(s): snoring Medications and Allergies Home Medications Medication Instructions Recorded Confirmed Type Cetirizine HCl [Zyrtec] 10 mg PO DAILY 07/30/23 02/27/24 History Empagliflozin [Jardiance] 25 mg PO DAILY 07/30/23 02/27/24 History Fenofibrate Nanocrystallized 145 mg PO DAILY 07/30/23 02/27/24 History [Fenofibrate] lisinopriL [Zestril] 10 mg PO DAILY 07/30/23 02/27/24 History Aspirin 81 mg PO DAILY #90 tab 08/01/23 02/27/24 Rx Prasugrel [Effient] 10 mg PO DAILY #90 tab 08/01/23 02/27/24 Rx Evolocumab [Repatha Sureclick] 140 mg SQ QMONTHLY 11/25/23 02/27/24 History cod liver oiL [Cod Liver Oil] 1 cap PO DAILY 11/25/23 02/27/24 History metFORMIN HCL [Glucophage] 1,000 mg PO BID 11/25/23 02/27/24 History Dulaglutide [Trulicity] 1.5 mg SQ TH 02/27/24 02/27/24 History Prosynbiotic 1 cap PO DAILY 02/27/24 02/27/24 History amLODIPine [Norvasc] 5 mg PO DAILY 02/27/24 02/27/24 History Allergies Allergy/AdvReac Type Severity Reaction Status Date / Time Sulfa (Sulfonamide Allergy Rash/Hives Verified 02/27/24 11:30 Antibiotics) Physical Exam Vitals: Vital Signs Temp Pulse Resp BP Pulse Ox 02/27/24 13:27 76 16 131/77 97 02/27/24 11:37 68 16 157/87 98 02/27/24 10:12 81 20 204/108 100 02/27/24 10:03 97.3 F L 76 20 182/104 100 Intake and Output 02/26/24 02/27/24 02/27/24 22:59 06:59 14:59 Other: Weight 81.647 kg GENERAL: The patient is alert and oriented x3, not in any acute distress. Well developed, well nourished. HEENT: Pupils are round and equally reacting to light. EOMI. No scleral icterus. No conjunctival pallor. Normocephalic, atraumatic. No pharyngeal erythema. No thyromegaly. CARDIOVASCULAR: S1 and S2 present. No murmurs, rubs, or gallops. PULMONARY: Chest is clear to auscultation, no wheezing , no crackles. ABDOMEN: Soft, nontender, nondistended, normoactive bowel sounds. No palpable organomegaly. MUSCULOSKELETAL: No joint swelling or deformity. EXTREMITIES: No cyanosis, clubbing, or pedal edema. NEUROLOGICAL: Gross neurological examination did not reveal any focal deficits. SKIN: No rashes. no petechiae. Results CBC & Chem 7: 02/27/24 10:18 02/27/24 10:18 Labs: Abnormal Lab Results - Last 24 Hours (Table) 02/27/24 02/27/24 Range/Units 10:18 10:18 Hgb 17.6 H (13.0-17.5) gm/dL Plt Count 134 L (150-450) k/uL Sodium 136 L (137-145) mmol/L Carbon Dioxide 20 L (22-30) mmol/L BUN 26 H (9-20) mg/dL Glucose 170 H (74-99) mg/dL Calcium 10.4 H (8.4-10.2) mg/dL Albumin 5.4 H (3.5-5.0) g/dL Assessment and Plan Assessment: Chest pain, rule out cardiac causes Hypertension urgency present on admission Coronary artery disease status post stent last August 2023 Hyperlipidemia Diabetes mellitus Sleep apnea on CPAP/BiPAP Plan: Continue serial troponin Cardiology team consult Resume blood pressure medication with close monitoring of blood pressure currently is on lisinopril 10 mg and Norvasc 5 mg were resumed Labs and medication were reviewed.. Continue same treatment. Continue with symptomatic treatment. Resume home medication. Monitor labs and vitals. DVT and GI prophylaxis. Further recommendations as per clinical course of the patient DVT prophylaxis: Subcutaneous heparin GI Prophylaxis: Pepcid Prognosis is guarded
--- NOTE | 2024-02-27 15:32 | P.CRDCN ---
History of Present Illness Consult date: 02/27/24 Consult reason: chest pain History of present illness: This is a 64-year-old male patient of Dr. Sommers with past medical history of coronary artery disease status post PCI to the mid RCAn in the setting of a NSTEMI in July 2023, bradycardia, essential hypertension, diabetes mellitus type 2, dyslipidemia with hyper triglyceridemia, statin intolerance. We have been asked to evaluate the patient for chest pain. Patient gives history that he has some chest discomfort and today he was feeling lightheaded and shortness of breath with shaking sensation. He continued to have chest discomfort right side of the sternal border with some tenderness. He and his significant other at the bedside state that this is as bad as when he had his heart attack in July. He also complains of shortness of breath. He is undergoing cardiac rehab. He states he is only symptom now is discomfort in the chest. Discussed option of stress test and patient is agreeable to move forward with this and will be scheduled tomorrow. Blood pressure 157/87, heart rate 68, pulse ox 98% on room air. -EKG: Sinus rhythm with no acute ST-T wave changes -Chest x-ray: No acute process -Laboratory studies: WBC 5.6, hemoglobin 17.6. BUN 26, creatinine 1.07, troponin negative x 2. -Home cardiac medications: Amlodipine 5 mg daily, aspirin 81 mg daily, Jardiance 25 mg daily, Repatha 140 mg subcu monthly, fenofibrate 145 mg daily, lisinopril 10 mg daily, Effient 10 mg daily -Cardiac catheterization 07/2023 revealed mid RCA stenosis status post PCI, moderate 50 to 60% disease in the left circumflex and LAD. -A repeat cardiac catheterization was performed 08/2023 for unstable angina finding patent mid RCA stent, moderate left circumflex and LAD unchanged. -Echocardiogram performed 08/2023 revealed EF of 55 to 60% with no major valve pathology. Review Of Systems: At the time of my exam: CONSTITUTIONAL: Denies fever or chills. HEENT: Denies blurred vision, vision changes, or eye pain. Denies hemoptysis CARDIOVASCULAR: Denies chest pain. Denies orthopnea. Denies PND. Denies palpitations RESPIRATORY: Denies shortness of breath. GASTROINTESTINAL: Denies abdominal pain. Denies nausea or vomiting. HEMATOLOGIC: Denies bleeding disorders. GENITOURINARY: Denies any blood in urine. SKIN: Denies puritis. Denies rash. Physical examination: Gen: This is a 64-year-old male in no acute distress VS: reviewed HEENT: Head is atraumatic, normocephalic. Pupils equal, round. Sclerae is anicteric. NECK: Supple. No JVD. LUNGS: Clear to auscultation. No wheezes or rhonchi. No intercostal retractions. HEART: Regular rate and rhythm. No murmur. ABDOMEN: Soft No tenderness. EXTREMITIES: No pedal edema. No calf tenderness. NEUROLOGICAL: Patient is awake, alert and oriented x3. Assessment: Chest pain, rule out acute coronary syndrome Bradycardia Hypertension Diabetes mellitus type 2 Dyslipidemia with hypertriglyceridemia. Plan: Resume patient's home cardiac medications Will consider starting patient on beta-jer tomorrow. Bradycardia appears to be stable. Schedule patient for Cardiolite stress test tomorrow N.p.o. after midnight Further recommendations to follow based upon clinical course Thank you kindly for this consultation. Nurse practitioner note has been reviewed, I agree with documented findings and plan of care. Patient was seen and examined. Past Medical History Past Medical History: Coronary Artery Disease (CAD), Diabetes Mellitus, Hyperlipidemia, Hypertension, Liver Disease, Osteoarthritis (OA), Sleep Apnea/CPAP/BIPAP Additional Past Medical History / Comment(s): CURRENTLY DIET CONTROL DIABETES. STATES STOPPED ALL DIABETIC MEDS ABOUT 2 MONTHS AGO BECUASE NOTHING WAS WORKING. STATES THAT [facility] STAYS ABOUT 240. fatty liver, had covid November 22, 2023 was hospitalized Nov 24 Last Myocardial Infarction Date:: 07/31/23 History of Any Multi-Drug Resistant Organisms: None Reported Past Surgical History: Heart Catheterization With Stent, Orthopedic Surgery Additional Past Surgical History / Comment(s): LT ELBOW DENERVATION. BACK INJECTIONS. COLONOSOCPY, right and left shoulder rotator cuff repairs Past Anesthesia/Blood Transfusion Reactions: Postoperative Nausea & Vomiting (PONV) Date of Last Stent Placement:: 07/31/23 Past Psychological History: No Psychological Hx Reported Smoking Status: Never smoker Past Alcohol Use History: Rare Past Drug Use History: None Reported - Past Family History Father Family Medical History: Cancer Additional Family Medical History / Comment(s): PROSTATE Mother Family Medical History: Coronary Artery Disease (CAD), Hyperlipidemia, Sleep Apnea/CPAP/BIPAP Additional Family Medical History / Comment(s): snoring Medications and Allergies Home Medications Medication Instructions Recorded Confirmed Type Cetirizine HCl [Zyrtec] 10 mg PO DAILY 07/30/23 02/27/24 History Empagliflozin [Jardiance] 25 mg PO DAILY 07/30/23 02/27/24 History Fenofibrate Nanocrystallized 145 mg PO DAILY 07/30/23 02/27/24 History [Fenofibrate] lisinopriL [Zestril] 10 mg PO DAILY 07/30/23 02/27/24 History Aspirin 81 mg PO DAILY #90 tab 08/01/23 02/27/24 Rx Prasugrel [Effient] 10 mg PO DAILY #90 tab 08/01/23 02/27/24 Rx Evolocumab [Repatha Sureclick] 140 mg SQ QMONTHLY 11/25/23 02/27/24 History cod liver oiL [Cod Liver Oil] 1 cap PO DAILY 11/25/23 02/27/24 History metFORMIN HCL [Glucophage] 1,000 mg PO BID 11/25/23 02/27/24 History Dulaglutide [Trulicity] 1.5 mg SQ TH 02/27/24 02/27/24 History Prosynbiotic 1 cap PO DAILY 02/27/24 02/27/24 History amLODIPine [Norvasc] 5 mg PO DAILY 02/27/24 02/27/24 History Allergies Allergy/AdvReac Type Severity Reaction Status Date / Time Sulfa (Sulfonamide Allergy Rash/Hives Verified 02/27/24 11:30 Antibiotics) Physical Exam Vitals: Vital Signs Temp Pulse Resp BP Pulse Ox 02/27/24 11:37 68 16 157/87 98 02/27/24 10:12 81 20 204/108 100 02/27/24 10:03 97.3 F L 76 20 182/104 100 Intake and Output 02/26/24 02/27/24 02/27/24 22:59 06:59 14:59 Other: Weight 81.647 kg Results 02/27/24 10:18 02/27/24 10:18 Cardiac Enzymes 02/27/24 02/27/24 Range/Units 10:18 10:18 AST 29 (17-59) U/L Troponin I <0.012 (0.000-0.034) ng/mL Coagulation 02/27/24 Range/Units 10:18 PT 10.7 (10.0-12.5) sec APTT 22.4 (22.0-30.0) sec CBC 02/27/24 Range/Units 10:18 WBC 5.6 (3.8-10.6) k/uL RBC 5.33 (4.30-5.90) m/uL Hgb 17.6 H (13.0-17.5) gm/dL Hct 49.4 (39.0-53.0) % Plt Count 134 L (150-450) k/uL Comprehensive Metabolic Panel 02/27/24 Range/Units 10:18 Sodium 136 L (137-145) mmol/L Potassium 4.3 (3.5-5.1) mmol/L Chloride 101 (98-107) mmol/L Carbon Dioxide 20 L (22-30) mmol/L BUN 26 H (9-20) mg/dL Creatinine 1.07 (0.66-1.25) mg/dL Glucose 170 H (74-99) mg/dL Calcium 10.4 H (8.4-10.2) mg/dL AST 29 (17-59) U/L ALT 32 (4-49) U/L Alkaline Phosphatase 48 (38-126) U/L Total Protein 7.9 (6.3-8.2) g/dL Albumin 5.4 H (3.5-5.0) g/dL Current Medications Generic Name Dose Route Start Last Admin Trade Name Freq PRN Reason Stop Dose Admin Acetaminophen 650 mg 02/27/24 11:18 Acetaminophen Tab 325 Mg Tab PO Q6HR PRN Mild Pain or Fever > 100.5 Amlodipine Besylate 5 mg 02/28/24 09:00 Amlodipine 5 Mg Tab PO DAILY [facility] Aspirin 81 mg 02/28/24 09:00 Aspirin 81 Mg PO DAILY [facility] Lisinopril 10 mg 02/28/24 09:00 Lisinopril 10 Mg Tab PO DAILY [facility] Metformin HCl 1,000 mg 02/27/24 17:30 Metformin 500 Mg Tab PO BID-W/MEALS ADOLFO Naloxone HCl 0.2 mg 02/27/24 11:18 Naloxone 0.4 Mg/Ml 1 Ml Vial IV Q2M PRN Opioid Reversal Pantoprazole Sodium 40 mg 02/28/24 09:00 Pantoprazole 40 Mg/10 Ml Vial IV DAILY ADOLFO Prasugrel 10 mg 02/28/24 09:00 Prasugrel 10 Mg Tab PO DAILY ADOLFO Intake and Output 02/26/24 02/27/24 02/27/24 22:59 06:59 14:59 Other: Weight 81.647 kg Patient Weight 02/28/24 06:59 Weight 81.647 kg 02/27/24 10:18 02/27/24 10:18
[2024-02-27] MEDS: metFORMIN 500 MG TAB PO SCH (18:20)
[2024-02-27] MEDS: HEPARIN SODIUM,PORCINE 5,000 UNIT/ML 1 ML VIAL SQ SCH (20:47)
[2024-02-27] MEDS: FAMOTIDINE 20 MG/2 ML VIAL IV SCH (20:47)
[2024-02-28 05:45] LABS: Glucose,Whole Blood 172 mg/dL (70-110)
[2024-02-28 07:40] VITALS: RESP 16
[2024-02-28] MEDS: ASPIRIN 81 MG PO SCH (08:36)
[2024-02-28] MEDS: PRASUGREL 10 MG TAB PO SCH (08:37)
[2024-02-28] MEDS: PANTOPRAZOLE 40 MG/10 ML VIAL IV SCH (08:39)
[2024-02-28] MEDS ORDERED: amLODIPine 5 MG TAB PO SCH (09:00)
[2024-02-28] MEDS ORDERED: lisinopriL 10 MG TAB PO SCH (09:00)
--- NOTE | 2024-02-28 11:38 | P.PN ---
Subjective Progress Note Date: 02/28/24 Consult reason: chest pain History of present illness: This is a 64-year-old male patient of Dr. Sommers with past medical history of coronary artery disease status post PCI to the mid RCAn in the setting of a NSTEMI in July 2023, bradycardia, essential hypertension, diabetes mellitus type 2, dyslipidemia with hyper triglyceridemia, statin intolerance. We have been asked to evaluate the patient for chest pain. Patient gives history that he has some chest discomfort and today he was feeling lightheaded and shortness of breath with shaking sensation. He continued to have chest discomfort right side of the sternal border with some tenderness. He and his significant other at the bedside state that this is as bad as when he had his heart attack in July. He also complains of shortness of breath. He is undergoing cardiac rehab. He states he is only symptom now is discomfort in the chest. Discussed option of stress test and patient is agreeable to move forward with this and will be scheduled tomorrow. Blood pressure 157/87, heart rate 68, pulse ox 98% on room air. -EKG: Sinus rhythm with no acute ST-T wave changes -Chest x-ray: No acute process -Laboratory studies: WBC 5.6, hemoglobin 17.6. BUN 26, creatinine 1.07, troponin negative x 2. -Home cardiac medications: Amlodipine 5 mg daily, aspirin 81 mg daily, Jardiance 25 mg daily, Repatha 140 mg subcu monthly, fenofibrate 145 mg daily, lisinopril 10 mg daily, Effient 10 mg daily -Cardiac catheterization 07/2023 revealed mid RCA stenosis status post PCI, moderate 50 to 60% disease in the left circumflex and LAD. -A repeat cardiac catheterization was performed 08/2023 for unstable angina finding patent mid RCA stent, moderate left circumflex and LAD unchanged. -Echocardiogram performed 08/2023 revealed EF of 55 to 60% with no major valve pathology. 02/28/2024 Patient seen and examined. Patient is scheduled for Cardiolite stress test this morning. He has no concerns regarding chest pain no shortness of breath. Blood pressure 128/82, heart rate 65, pulse ox 98% on room air. Physical examination: Gen: This is a 64-year-old male in no acute distress VS: reviewed HEENT: Head is atraumatic, normocephalic. Pupils equal, round. Sclerae is anicteric. NECK: Supple. No JVD. LUNGS: Clear to auscultation. No wheezes or rhonchi. No intercostal retractions. HEART: Regular rate and rhythm. No murmur. ABDOMEN: Soft No tenderness. EXTREMITIES: No pedal edema. No calf tenderness. NEUROLOGICAL: Patient is awake, alert and oriented x3. Assessment: Atypical chest pain, acute coronary syndrome ruled out Bradycardia Hypertension Diabetes mellitus type 2 Dyslipidemia with hypertriglyceridemia. Plan: Continue patient's home cardiac medications Schedule patient for Cardiolite stress test today Following stress test, patient will be started on metoprolol succinate 12.5 mg daily. If stress test is unremarkable, patient is cleared for discharge from cardiology perspective and may follow-up with Dr. Benoit in the office in 1 week. Further recommendations to follow based upon clinical course Nurse practitioner note has been reviewed, I agree with documented findings and plan of care. Patient was seen and examined. Objective - Vital Signs Vital signs: Vital Signs Temp 98.3 F 02/28/24 06:45 Pulse 65 02/28/24 06:45 Resp 16 02/28/24 06:45 BP 128/82 02/28/24 06:45 Pulse Ox 98 02/28/24 07:41 FiO2 Intake & Output 02/27/24 02/28/24 02/28/24 18:59 06:59 18:59 Weight 81.647 kg 81.647 kg Other: Voiding Method Toilet # Voids 2 - Labs CBC & Chem 7: 02/27/24 10:18 02/27/24 10:18 Labs: Abnormal Lab Results - Last 24 Hours (Table) 02/27/24 02/27/24 02/28/24 Range/Units 10:18 10:18 05:43 Hgb 17.6 H (13.0-17.5) gm/dL Plt Count 134 L (150-450) k/uL Sodium 136 L (137-145) mmol/L Carbon Dioxide 20 L (22-30) mmol/L BUN 26 H (9-20) mg/dL Glucose 170 H (74-99) mg/dL POC Glucose (mg/dL) 172 H (70-110) mg/dL Calcium 10.4 H (8.4-10.2) mg/dL Albumin 5.4 H (3.5-5.0) g/dL
[2024-02-28] MEDS ORDERED: METOPROLOL SUCCINATE (ER) 25 MG TAB.ER.24H PO SCH (11:45)
--- NOTE | 2024-02-28 11:55 | CA ---
Exercise Stress Test Report Name: Manuel Cabrera Exam Date: 02/28/2024 09:52 Exam Location: [facility] Stress Ht (in): 73 Wt (lb): 180 BSA: 2.06 Ordering Phys: Bianka Alfred Referring Phys: CHARLY,, Technologist: Moshe Price Age: 64 Gender: M : 1960 Procedure CPT: Indications: Reflex order-Stress test ICD-10 Codes: Patient History: CHEST PAIN, JANEEN, PALPITATIONS, ANGINA, HTN, DIABETES, HYPERCHOLESTEROLEMIA, FAMILY HX OF HEART DISEASE, PRIOR SD, PRIOR CATH WITH STENT, Medications: Meds past 24 hrs: Pretest Chest Pain: STRESS TEST Kalli Protocol Exercise Duration (min:sec): 10:[address] Depressions (mm): Angina Score: Johnston Score: Resting HR (bpm): 77 Peak HR (bpm): 136 Resting BP (mmHg): 135 / 89 Peak BP (mmHg): 197 / 90 MPHR: 157 Target HR: 133 % MPHR: 87 METS: 12.1 Total Dose: Peak Dose: Atropine: Double Product: 37200 BP Response: Stress Termination: MAX EXERTION/TARGET HR Stress Symptoms: NO SYMPTOMS Stress Summary: ECG ANALYSIS Resting ECG: Normal sinus rhythm heart rate 63 bpm Stress ECG: No significant ST-T wave changes that are diagnostic for ischemia by ST segment analysis. There were no sustained arrhythmias or ectopic beats noticed during the stress test CONCLUSIONS Good exercise tolerance for age achieving 12.1 METS Normal hemodynamic and clinical response to treadmill exercise Nonischemic ECG response to treadmill exercise Please refer to the nuclear portion of the stress test for complete interpretation of the study Dr Vinod Benoit (Electronically Signed) Final Date: 28 February 2024 11:54
[2024-02-28 12:15] LABS: Glucose,Whole Blood 237 mg/dL (70-110)
--- NOTE | 2024-02-28 13:35 | NM ---
EXAMINATION TYPE: NM stress cardiolite complete DATE OF EXAM: 02/28/2024 COMPARISON: CTA chest November 25, 2023 CLINICAL INDICATION: Male, 64 years old with history of chest pain; history of hypertension and diabe matthieu. History of hypercholesterolemia and prior catheterization and angioplasty. TECHNIQUE: After the intravenous administration of 9.8 mCi Tc 99m Sestamibi - Rest images obtained 4 5 minutes post injection. The patient exercised using a LYNN protocol and 1 minute prior to peak e xercise was injected with 25.1 mCi Tc 99m Sestamibi - Stress images obtained 20 minutes post injectio n. FINDINGS: Targeted heart rate was achieved during performance of the study. Review of stress and rest SPECT zaid ges demonstrates no distinct perfusion abnormality. Gated analysis shows normal wall motion with an estimated left ventricular ejection fraction of 67 %. IMPRESSION: No scintigraphic evidence for reversible ischemia X-Ray Genia Johnson, , 02/28/2024 1:33 PM
[2024-02-28 15:01] VITALS: BP 109/72; PULSE 77; TEMP 98.5
== END 2024-02-28 16:17 | disposition home or self-care (01) ==
LOC: EC 09:58 → 6NMEDSUR 11:20
PROVIDERS: ADMIT Internal Medicine; ATTEND Internal Medicine
DX: R07.89 Other chest pain (principal); R00.1 Bradycardia, unspecified; I10 Essential (primary) hypertension; I16.0 Hypertensive urgency; E11.9 Type 2 diabetes mellitus without complications; E78.1 Pure hyperglyceridemia; G47.30 Sleep apnea, unspecified; I25.10 Atherosclerotic heart disease of native coronary artery without angina pectoris; I25.2 Old myocardial infarction; K76.0 Fatty (change of) liver, not elsewhere classified; Z86.16 Personal history of COVID-19; Z79.02 Long term (current) use of antithrombotics/antiplatelets; Z79.82 Long term (current) use of aspirin; Z79.84 Long term (current) use of oral hypoglycemic drugs; Z79.899 Other long term (current) drug therapy; Z95.5 Presence of coronary angioplasty implant and graft; Z88.2 Allergy status to sulfonamides; Z79.85 Long-term (current) use of injectable non-insulin antidiabetic drugs
CPT/HCPCS: 96374; 99285; 36415; 94760; 93005; 93017; 80053; 83690; 83735; 84484; 85025; 85610; 85730; 71046; 78452; G0378 ×2; A9500; J2470

== ENCOUNTER → 2024-07-01 | Outpatient (CLI) | payer OTHER ==
[2024-07-01 15:50] LABS: LDL Cholesterol,Calculated 30.2 mg/dL (0.0-131.0)
== END | disposition home or self-care (01) ==
LOC: LABWHC1 07:54
PROVIDERS: ATTEND Internal Medicine Interventional Cardiology
DX: E78.5 Hyperlipidemia, unspecified (principal)
CPT/HCPCS: 36415; 80061